=== PATIENT | female | born 2000 | race Caucasian/White ===

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

== ENCOUNTER 2022-12-08 22:22 | Inpatient (IN) ==
[2022-12-08 22:54] LABS: Appearance Urine Turbid (Clear); Bacteria Urine Automated 4+ (Negative); Bilirubin Urine Negative (Negative); Blood Urine 2+ (Negative); Color Urine Yellow; Epithelial Cell Urine Auto >30 /lpf (0-5); Glucose Urine UA Negative (Negative); Ketones Urine Negative (Negative); Leukocyte Esterase Urine 2+ (Negative); Nitrite Urine Positive (Negative); Specific Gravity Urine 1.015 (1.000-1.030); Urobilinogen Urine Negative (Negative); WBC Urine Automated >30 /hpf (0-5); pH Urine 7.5 (4.5-7.5)
[2022-12-08 22:58] LABS: Pregnancy Test, Urine Positive (Negative)
[2022-12-08 23:00] LABS: Protein Urine 1+ (Negative)
[2022-12-08 23:03] LABS: Basophils # (auto) 0.06 K/uL (0-0.2); Basophils % (auto) 0.6 %; Eosinophils # (auto) 0.38 K/uL (0-0.50); Eosinophils % (auto) 3.7 %; Hematocrit (blood only) 34.6 % (37.0-47.0); Immature Granulocytes # (auto) 0.03 K/uL (0.01-0.20); Immature Granulocytes % (auto) 0.3 %; Lymphocytes % (auto) 19.5 %; Mean Corpuscular Hemoglobin 27.1 pg (25.0-34.0); Mean Corpuscular Hgb Conc 31.8 g/dL (32.0-36.0); Mean Corpuscular Volume 85.2 fL (80.0-100.0); Mean Platelet Volume 10.7 fL (9.4-12.4); Monocytes # (auto) 0.87 K/uL (0.11-0.59); Monocytes % (auto) 8.5 %; Neutrophils # (auto) 6.92 K/uL (1.40-6.50); Neutrophils % (auto) 67.4 %; Platelet Count 315 K/uL (130-400); RDW Coefficient of Variation 15.2 % (11.5-14.5); RDW Standard Deviation 47.4 fL (36.4-46.3); Red Blood Count 4.06 M/uL (4.20-5.40); White Blood Count 10.26 K/ul (4.8-10.8)
[2022-12-08 23:22] LABS: Alanine Aminotransferase 6 U/L (7-52); Albumin Globulin Ratio 1.3 (0.9-2); Albumin Level 4.3 gm/dl (3.4-5.0); Alkaline Phosphatase 42 U/L (34-104); Anion Gap 7 (3-11); Aspartate Aminotransferase 13 U/L (13-39); BUN Creatinine Ratio 25.9 (10-20); Bilirubin,Total 0.2 mg/dl (0.2-1.0); Blood Urea Nitrogen 15 mg/dl (6-23); Calcium 9.4 mg/dl (8.6-10.3); Carbon Dioxide 25 mmol/L (21-32); Chloride 103 mmol/L (98-107); Creatinine Clr Calc Pharmacy 130.9 ml/min; Est GFR (African American) > 150.0 ml/min; Est GFR (Non-African American) 132.7 ml/min; Globulin 3.2 gm/dl (2.5-4.0); Glucose 84 mg/dl (70-99(Fasting)); Potassium 3.7 mmol/L (3.5-5.1); Sodium 135 mmol/L (136-145); Total Protein 7.5 gm/dl (6.0-8.3)
[2022-12-09] MEDS ORDERED: cefTRIAXone SODIUM 1,000 MG in DEXTROSE 5% AD-VAN 50 ML IV STA (00:10)
[2022-12-09] MEDS ORDERED: ACETAMINOPHEN 1,000 MG/100 ML VIAL IV STA (01:27)
--- NOTE | 2022-12-09 01:53 | Emergency Department Note ---
History of Present Illness General Chief complaint: Flank Pain Stated complaint: PAIN R ABDOMIN TO BACK Time Seen by Provider: 12/08/22 23:53 History of Present Illness Maximum Pain Intensity: 8 This 22-year-old who is 10 weeks presents to the ER complaining of right flank pain and lower abdominal pain. Patient states she has some dysuria. Patient denies fevers, vomiting, vaginal bleeding or discharge. She has her first appointment this week in [place]. This is her first . No other concerns per patient. Home Medications Medication Instructions Recorded Confirmed Type No Known Home Medications 12/08/22 12/08/22 History Allergies Allergy/AdvReac Type Severity Reaction Status Date / Time No Known Allergies Allergy Unverified 11/07/19 08:18 Past Med/Surg History Social History Smoking Status: Current every day smoker Feels Safe at Home: Yes Review of Systems A total of 10 systems reviewed and were otherwise negative Physical Exam Vital Signs Vital Signs - 24 hr 12/08/22 22:26 12/09/22 01:22 Temperature 36.9 C 36.9 C Temperature Source Temporal Artery Scan Oral Pulse Rate 100 H Pulse Rate [Right Finger] 103 H Respiratory Rate 18 20 Respiratory Effort / Characteristics Non-Labored Spontaneous Respiratory Depth Normal Shallow Blood Pressure 125/77 Blood Pressure [Left Arm] 130/85 Blood Pressure Mean 93 Blood Pressure Mean [Left Arm] 100 Pulse Oximetry 99 97 Oxygen Delivery Method Room Air Room Air Sepsis Recent Fever Within 48 Hours No Sepsis New/Unexplained Change in Mental Status No Sepsis Action Taken by Nursing No Action Required VITALS: Vitals are noted on the nurse's note and reviewed by myself. Vital signs stable. GENERAL: Pleasant female, in no acute distress, nondiaphoretic, well-developed well-nourished. SKIN: The skin was without rashes, erythema, edema, or bruising. There is no tenting of the skin. Capillary reflex less than 2 seconds. HEAD: Normocephalic atraumatic. EARS: External auditory canals clear, tympanic membranes pearly lewis without erythema or effusion bilaterally. EYES: Pupils equal round and reactive to light and accommodation. Conjunctivae without injection, sclerae without icterus. Extraocular movements intact. NOSE: Patent, turbinates without inflammation or discharge. MOUTH: Mucous membranes moist. Pharynx without erythema or exudate. Uvula midline. Airway patent. Tongue does not deviate. NECK: Supple without nuchal rigidity. No lymphadenopathy. No thyromegaly. Cervical spine is nontender. No JVD. HEART: Regular rate and rhythm LUNGS: Clear to auscultation bilaterally without wheezes, rales or rhonchi. No retractions or accessory muscle use. ABDOMEN: Positive bowel sounds x 4. Normal tympanic percussion. Soft, nontender, without masses or organomegaly. Rainey sign negative. No guarding or rebound tenderness. Right CVA tenderness MUSCULOSKELETAL: No muscle atrophy, erythema, or edema noted. NEURO: Patient was alert and oriented to person place and time. Normal sensation to light and sharp touch. No focal neurological deficits. Course Administered Medications Potassium Chloride/Sodium Chloride (Normal Saline W/20 Meq Kcl) 20 meq in 1,000 mls @ 100 mls/hr IV .Q10H ONE; Protocol Stop: 12/09/22 12:12 Last Admin: 12/09/22 02:44 Dose: 100 mls/hr Documented By: MIKE Discontinued Medications Ceftriaxone Sodium 1,000 mg/ (Dextrose) 50 mls @ 100 mls/hr IV NOW STA Stop: 12/09/22 00:39 Last Infusion: 12/09/22 02:04 Dose: 0 mls/hr Documented By: Admin: 12/09/22 01:19 Dose: 100 mls/hr Documented By: TOMASA Acetaminophen (Ofirmev) 1,000 mg in 100 mls @ 400 mls/hr IV NOW STA Stop: 12/09/22 01:41 Last Infusion: 12/09/22 02:04 Dose: 0 mls/hr Documented By: Admin: 12/09/22 01:32 Dose: 400 mls/hr Documented By: TOMASA Medical Decision Making Medical Records Attestation: I reviewed the patient's medical records. Home Medications Current Medication List: was personally reviewed by me Laboratory Data Attestation: I reviewed the patient's lab results. 12/08/22 22:35 12/08/22 22:35 Lab Results 12/08/22 12/08/22 12/08/22 Range/Units 22:35 22:35 22:35 WBC 10.26 (4.8-10.8) K/ul RBC 4.06 L (4.20-5.40) M/uL Hgb 11.0 L (12.0-16.0) g/dl Hct 34.6 L (37.0-47.0) % MCV 85.2 (80.0-100.0) fL MCH 27.1 (25.0-34.0) pg MCHC 31.8 L (32.0-36.0) g/dL RDW Std Deviation 47.4 H (36.4-46.3) fL RDW Coeff of Luis 15.2 H (11.5-14.5) % Plt Count 315 (130-400) K/uL MPV 10.7 (9.4-12.4) fL Immature Gran % (Auto) 0.3 % Neut % (Auto) 67.4 % Lymph % (Auto) 19.5 % Mason % (Auto) 8.5 % Eos % (Auto) 3.7 % Baso % (Auto) 0.6 % Neut # (Auto) 6.92 H (1.40-6.50) K/uL Lymph # (Auto) 2.00 (1.2-3.4) K/uL Mason # (Auto) 0.87 H (0.11-0.59) K/uL Eos # (Auto) 0.38 (0-0.50) K/uL Baso # (Auto) 0.06 (0-0.2) K/uL Immature Gran # (Auto) 0.03 (0.01-0.20) K/uL Sodium 135 L (136-145) mmol/L Potassium 3.7 (3.5-5.1) mmol/L Chloride 103 (98-107) mmol/L Carbon Dioxide 25 (21-32) mmol/L Anion Gap 7 (3-11) BUN 15 (6-23) mg/dl Creatinine 0.58 L (0.6-1.2) mg/dl Est Cr Clr Drug Dosing 130.9 ml/min Est GFR ( Amer) > 150.0 ml/min Est GFR (Non-Af Amer) 132.7 ml/min BUN/Creatinine Ratio 25.9 H (10-20) Glucose 84 (70-99(Fasting)) mg/dl Calcium 9.4 (8.6-10.3) mg/dl Total Bilirubin 0.2 (0.2-1.0) mg/dl AST 13 (13-39) U/L ALT 6 L (7-52) U/L Alkaline Phosphatase 42 (34-104) U/L Total Protein 7.5 (6.0-8.3) gm/dl Albumin 4.3 (3.4-5.0) gm/dl Globulin 3.2 (2.5-4.0) gm/dl Albumin/Globulin Ratio 1.3 (0.9-2) HCG, Quant mIU/ml Urine Color Yellow Urine Appearance Turbid A (Clear) Urine pH 7.5 (4.5-7.5) Ur Specific [place] 1.015 (1.000-1.030) Urine Protein 1+ H (Negative) Urine Glucose (UA) Negative (Negative) Urine Ketones Negative (Negative) Urine Blood 2+ H (Negative) Urine Nitrite Positive A (Negative) Urine Bilirubin Negative (Negative) Urine Urobilinogen Negative (Negative) Ur Leukocyte Esterase 2+ H (Negative) Urine WBC (Auto) >30 H (0-5) /hpf Urine RBC (Auto) 5-10 H (0-4) /hpf U Hyaline Cast (Auto) 1-5 (0-5) /lpf U Epithel Cells (Auto) >30 H (0-5) /lpf Urine Bacteria (Auto) 4+ H (Negative) Urine Yeast Not Reportable Urine Test (Negative) 12/08/22 12/08/22 Range/Units 22:35 22:35 WBC (4.8-10.8) K/ul RBC (4.20-5.40) M/uL Hgb (12.0-16.0) g/dl Hct (37.0-47.0) % MCV (80.0-100.0) fL MCH (25.0-34.0) pg MCHC (32.0-36.0) g/dL RDW Std Deviation (36.4-46.3) fL RDW Coeff of Luis (11.5-14.5) % Plt Count (130-400) K/uL MPV (9.4-12.4) fL Immature Gran % (Auto) % Neut % (Auto) % Lymph % (Auto) % Mason % (Auto) % Eos % (Auto) % Baso % (Auto) % Neut # (Auto) (1.40-6.50) K/uL Lymph # (Auto) (1.2-3.4) K/uL Mason # (Auto) (0.11-0.59) K/uL Eos # (Auto) (0-0.50) K/uL Baso # (Auto) (0-0.2) K/uL Immature Gran # (Auto) (0.01-0.20) K/uL Sodium (136-145) mmol/L Potassium (3.5-5.1) mmol/L Chloride (98-107) mmol/L Carbon Dioxide (21-32) mmol/L Anion Gap (3-11) BUN (6-23) mg/dl Creatinine (0.6-1.2) mg/dl Est Cr Clr Drug Dosing ml/min Est GFR ( Amer) ml/min Est GFR (Non-Af Amer) ml/min BUN/Creatinine Ratio (10-20) Glucose (70-99(Fasting)) mg/dl Calcium (8.6-10.3) mg/dl Total Bilirubin (0.2-1.0) mg/dl AST (13-39) U/L ALT (7-52) U/L Alkaline Phosphatase (34-104) U/L Total Protein (6.0-8.3) gm/dl Albumin (3.4-5.0) gm/dl Globulin (2.5-4.0) gm/dl Albumin/Globulin Ratio (0.9-2) HCG, Quant 055507 mIU/ml Urine Color Urine Appearance (Clear) Urine pH (4.5-7.5) Ur Specific Mize (1.000-1.030) Urine Protein (Negative) Urine Glucose (UA) (Negative) Urine Ketones (Negative) Urine Blood (Negative) Urine Nitrite (Negative) Urine Bilirubin (Negative) Urine Urobilinogen (Negative) Ur Leukocyte Esterase (Negative) Urine WBC (Auto) (0-5) /hpf Urine RBC (Auto) (0-4) /hpf U Hyaline Cast (Auto) (0-5) /lpf U Epithel Cells (Auto) (0-5) /lpf Urine Bacteria (Auto) (Negative) Urine Yeast Urine Test Positive (Negative) Imaging Data Attestation: I personally reviewed and interpreted this imaging study as follo ws: Radiologist's Impression: Appendix Ultrasound 12/09/22 00:10 Exam(s): US APPENDIX EXAM: US Abdomen Limited, Appendix CLINICAL HISTORY: Reason for exam: rlq pain. TECHNIQUE: Real-time ultrasound of the right lower quadrant with image documentation. COMPARISON: No relevant prior studies available. FINDINGS: Appendix: Appendix not identified. Free fluid: No free fluid. IMPRESSION: Appendix not identified. Electronically signed by: Keron Lu M.D. 12/09/22 02:16 AM Ultrasound 12/09/22 00:10 Exam(s): US OB 1st TRIMESTER EXAM: US First Trimester , Transabdominal CLINICAL HISTORY: Reason for exam: pain, 10 weeks. TECHNIQUE: Real-time transabdominal obstetrical ultrasound of the maternal pelvis and a first trimester with image documentation. COMPARISON: No relevant prior studies available. FINDINGS: Gestation: Intrauterine gestation with crown-rump length corresponding to gestational age of 12 weeks 5 days. heart tones are estimated to be 169 bpm. BPD: Biparietal diameter, head circumference, abdominal circumference, and femur length are concordant with estimated gestational age of 13 weeks 2 days. Placenta/amniotic fluid: There is a posterior placenta. Uterus/cervix: Unremarkable. No myometrial mass. Ovaries: Right ovary measures 3.1 x 2.6 x 1.3 cm. Left ovary is not identified. Free fluid: No free fluid. IMPRESSION: 1. 13 week 2 day viable intrauterine . Electronically signed by: Keron Lu M.D. 12/09/22 02:22 AM Renal Ultrasound 12/09/22 00:10 Exam(s): US RENAL EXAM: US Retroperitoneal Limited, Renal CLINICAL HISTORY: Reason for exam: right flank pain, UTI. TECHNIQUE: Real-time limited ultrasound of the retroperitoneum with image documentation. COMPARISON: No relevant prior studies available. FINDINGS: Right kidney: Right kidney measures 10.4 cm. Mild right pelviectasis without shai hydronephrosis. No stones. Left kidney: Left kidney measures 10.6 cm. No stones. No hydronephrosis. Bladder: Bladder is unremarkable. IMPRESSION: Mild right pelviectasis without shai hydronephrosis. Electronically signed by: Keron Lu M.D. 12/09/22 02:19 AM [facility] Narrative Prior records/ancillary studies reviewed. Triage Nursing notes reviewed. Additional history obtained from family. The patient's history was concerning for abdominal pain. Differential diagnosis: Etiologies such as problem, appendicitis, diverticulitis, PUD, biliary pathology, UTI, pancreatitis, obstruction, mesenteric ischemia, aortic pathology, infections, inflammatory bowel disease, renal colic, as well as others were entertained. Physical examination findings: As above. ER treatment provided: An order was placed for continuous cardiac monitoring. The monitor shows a rate of 60-1 20 with a sinus rhythm per my Independent interpretation. IV fluids Tylenol Rocephin were ordered On reassessment the patient felt better. Diagnostics interpreted by me: The labs Independently Interpreted by myself revealed no worrisome leukocytosis, urine concerning for infection sent for culture. Positive Imaging studies: Ultrasounds were concerning for IUP at 13 weeks with bladder infection concerning for possible pyelonephritis per my independent interpretation and per radiology report as above Appendix is not identified on ultrasound. Consultation: A consultation was placed with the pharmacist and states Rocephin is safe with . The case was discussed and diagnostics were reviewed. The patient was evaluated in the ER for further treatment. Medicine was consulted and the case was discussed and was admitted to the medical service. Exam and history seem consistent with pyelonephritis in a first trimester . No prior urine culture for review. Patient was started on antibiotics and this was reviewed with the pharmacist. Labs and diagnostics are independent turbid by myself. Ultrasound shows an active IUP. Patient had right CVA tenderness. She is quite nauseous. Patient had no tenderness in the right lower quadrant. Medicine is consulted and will evaluate the patient for possible admission. By the evaluation outlined above emergent etiologies such as appendicitis, diverticulitis, PUD, biliary pathology, pancreatitis, obstruction, mesenteric ischemia, aortic pathology, inflammatory bowel disease, renal colic, as well as others were deemed relatively unlikely. The pt informed about the findings as listed above. All questions were answered and pleased with the treatment. The chart was completed utilizing [employer] voice recognition software. Grammatical errors, random word insertions, pronoun errors, and incomplete sentences are an occassional consequence of this system due to software limitations, ambient noise, and hardware issues. Any formal questions or concerns about the content, text, or information contained within the body of this dictation should be directly addressed to the physician payroll assistant for clarification. Impression & Plan Pyelonephritis, First trimester Discharge Plan Visit Data Chief Complaint: Flank Pain Stated Complaint: PAIN R ABDOMIN TO BACK ED Provider: Vibha Barros ED Midlevel Provider: Rica Bland Discharge Problem: Pyelonephritis, First trimester Patient Disposition: Admitted As Inpatient Condition: Good Forms Stand Alone Forms: Shake Prescriptions Prescriptions: No Action No Known Home Medications Referrals Referrals: Jossie Guzman CRNP [Primary Care Provider] -
[2022-12-09] MEDS ORDERED: NSS + 20MEQ KCL 20 MEQ/1,000 ML BAG IV ONE (02:13)
--- NOTE | 2022-12-09 02:17 | Ultrasound Report ---
Exam(s): US APPENDIX EXAM: US Abdomen Limited, Appendix CLINICAL HISTORY: Reason for exam: rlq pain. TECHNIQUE: Real-time ultrasound of the right lower quadrant with image documentation. COMPARISON: No relevant prior studies available. FINDINGS: Appendix: Appendix not identified. Free fluid: No free fluid. IMPRESSION: Appendix not identified. Electronically signed by: Keron Lu M.D. 12/09/22 02:16 AM
--- NOTE | 2022-12-09 02:19 | Ultrasound Report ---
Exam(s): US RENAL EXAM: US Retroperitoneal Limited, Renal CLINICAL HISTORY: Reason for exam: right flank pain, UTI. TECHNIQUE: Real-time limited ultrasound of the retroperitoneum with image documentation. COMPARISON: No relevant prior studies available. FINDINGS: Right kidney: Right kidney measures 10.4 cm. Mild right pelviectasis without shai hydronephrosis. No stones. Left kidney: Left kidney measures 10.6 cm. No stones. No hydronephrosis. Bladder: Bladder is unremarkable. IMPRESSION: Mild right pelviectasis without shai hydronephrosis. Electronically signed by: Keron Lu M.D. 12/09/22 02:19 AM
--- NOTE | 2022-12-09 02:23 | Ultrasound Report ---
Exam(s): US OB 1st TRIMESTER EXAM: US First Trimester , Transabdominal CLINICAL HISTORY: Reason for exam: pain, 10 weeks. TECHNIQUE: Real-time transabdominal obstetrical ultrasound of the maternal pelvis and a first trimester with image documentation. COMPARISON: No relevant prior studies available. FINDINGS: Gestation: Intrauterine gestation with crown-rump length corresponding to gestational age of 12 weeks 5 days. heart tones are estimated to be 169 bpm. BPD: Biparietal diameter, head circumference, abdominal circumference, and femur length are concordant with estimated gestational age of 13 weeks 2 days. Placenta/amniotic fluid: There is a posterior placenta. Uterus/cervix: Unremarkable. No myometrial mass. Ovaries: Right ovary measures 3.1 x 2.6 x 1.3 cm. Left ovary is not identified. Free fluid: No free fluid. IMPRESSION: 1. 13 week 2 day viable intrauterine . Electronically signed by: Keron Lu M.D. 12/09/22 02:22 AM
[2022-12-09 03:03] LABS: Magnesium 1.8 mg/dl (1.7-2.4)
[2022-12-09] MEDS ORDERED: MAGNESIUM SULFATE / D5W 1 GM/100 ML BAG IV ONE (03:22)
--- NOTE | 2022-12-09 03:23 | History & Physical Report ---
Date of Service December 09, 2022 Assessment & Plan (1) Complicated UTI (urinary tract infection): Plan: Right pyelonephritis in a primigravida patient No sepsis for now mood disorder, stable off maintenance medications Chronic anemia, hemoglobin at baseline Ongoing tobacco abuse GMF Urine CS, Ceftriaxone OB consult Re: evaluation Patient counseled to stop smoking in light of . DVT prophylaxis. SCDs Full code Text document was generated using [employer] voice recognition software. It may contain grammatical or spelling errors. Kindly contact undersigned for clarification of any documentation item in question. History of Present Illness Chief Complaint: Right flank pain Primary Care Provider: PCP, No History obtained from patient, family, and records. Medical history significant for mood disorder, GERD, chronic anemia (baseline hemoglobin of 11), ongoing tobacco abuse. Patient is a primigravida currently 20 weeks consulted ER for 3 days history of right flank pain with dysuria symptoms. Patient found out she was 3 weeks last week of October and was scheduled to see [facility] for her first checkup today. No fever, no chills, no hematuria. Some nausea, no emesis. Patient denies chest pain, SOB. IV Ceftriaxone administered at the ER. Medical History as above Surgical History : Orbital fracture surgery Family History : Hypertension Personal/Social history : Few cigarettes a day, no EtOH intake, currently unemployed Allergies Allergy/AdvReac Type Severity Reaction Status Date / Time No Known Allergies Allergy Unverified 11/07/19 08:18 Home Medications Medication Instructions Recorded Confirmed Type No Known Home Medications 12/08/22 12/08/22 History Past Med/Surg History Surgical History (Updated 12/09/22 @ 06:55 by Gemini Toscano MD) Hx of tonsillectomy S/P eye surgery Social History Smoking Status: Former smoker Hx Alcohol Use: No Hx Substance Use: No Preferred Language: Mongolian Assembler Type Bar And Segment Required: No Beliefs That Will Affect Care: None Current Living Situation: Parent Feels Safe at Home: Yes Safety Concerns: Feels Safe At This Time Assistive Devices: None Review of Systems Review of Systems: As per HPI, all other systems reviewed and negative Physical Exam Physical Exam: GENERAL: Comfortable, pleasant, no respiratory distress SKIN: Pallor, warm HEENT: Pale palpebral conjunctivae, no ptosis, dry buccal mucosa NECK : Supple, no tenderness CHEST : CTA, no tenderness HEART : RRR, no obvious murmurs ABDOMEN: Some distention, minimal right flank tenderness EXTREMITIES : No LE swelling/tenderness, no other conspicuous deformities noted NEUROLOGIC : Coherent, no facial asymmetry, no other gross focality Results & Data Results & Data Vital Signs (Past 12 Hours) Vital Signs Temp Pulse Pulse Resp BP BP Pulse Ox 12/09/22 01: 36.9 C 103 H 20 130/85 97 12/08/22 22:26 36.9 C 100 H 18 125/77 99 O2 Del Method 12/09/22 01:22 Room Air 12/08/22 22:26 Room Air Laboratory Results Laboratory Results WBC 10.26 K/ul (4.8-10.8) 12/08/22 22:35 RBC 4.06 M/uL (4.20-5.40) L 12/08/22 22:35 Hgb 11.0 g/dl (12.0-16.0) L 12/08/22 22:35 Hct 34.6 % (37.0-47.0) L 12/08/22 22:35 MCV 85.2 fL (80.0-100.0) 12/08/22 22:35 MCH 27.1 pg (25.0-34.0) 12/08/22 22:35 MCHC 31.8 g/dL (32.0-36.0) L 12/08/22 22:35 RDW Std Deviation 47.4 fL (36.4-46.3) H 12/08/22 22:35 RDW Coeff of Luis 15.2 % (11.5-14.5) H 12/08/22 22:35 Plt Count 315 K/uL (130-400) 12/08/22 22:35 MPV 10.7 fL (9.4-12.4) 12/08/22 22:35 Immature Gran % (Auto) 0.3 % 12/08/22 22:35 Neut % (Auto) 67.4 % 12/08/22 22:35 Lymph % (Auto) 19.5 % 12/08/22 22:35 Andrews % (Auto) 8.5 % 12/08/22 22:35 Eos % (Auto) 3.7 % 12/08/22 22:35 Baso % (Auto) 0.6 % 12/08/22 22:35 Neut # (Auto) 6.92 K/uL (1.40-6.50) H 12/08/22 22:35 Lymph # (Auto) 2.00 K/uL (1.2-3.4) 12/08/22 22:35 Andrews # (Auto) 0.87 K/uL (0.11-0.59) H 12/08/22 22:35 Eos # (Auto) 0.38 K/uL (0-0.50) 12/08/22 22:35 Baso # (Auto) 0.06 K/uL (0-0.2) 12/08/22 22:35 Immature Gran # (Auto) 0.03 K/uL (0.01-0.20) 12/08/22 22:35 Sodium 135 mmol/L (136-145) L 12/08/22 22:35 Potassium 3.7 mmol/L (3.5-5.1) 12/08/22 22:35 Chloride 103 mmol/L (98-107) 12/08/22 22:35 Carbon Dioxide 25 mmol/L (21-32) 12/08/22 22:35 Anion Gap 7 (3-11) 12/08/22 22:35 BUN 15 mg/dl (6-23) 12/08/22 22:35 Creatinine 0.58 mg/dl (0.6-1.2) L 12/08/22 22:35 Est Cr Clr Drug Dosing 130.9 ml/min 12/08/22 22:35 Est GFR ( Amer) > 150.0 ml/min 12/08/22 22:35 Est GFR (Non-Af Amer) 132.7 ml/min 12/08/22 22:35 BUN/Creatinine Ratio 25.9 (10-20) H 12/08/22 22:35 Glucose 84 mg/dl (70-99(Fasting)) 12/08/22 22:35 Calcium 9.4 mg/dl (8.6-10.3) 12/08/22 22:35 Magnesium 1.8 mg/dl (1.7-2.4) 12/08/22 22:35 Total Bilirubin 0.2 mg/dl (0.2-1.0) 12/08/22 22:35 AST 13 U/L (13-39) 12/08/22 22:35 ALT 6 U/L (7-52) L 12/08/22 22:35 Alkaline Phosphatase 42 U/L (34-104) 12/08/22 22:35 Total Protein 7.5 gm/dl (6.0-8.3) 12/08/22 22:35 Albumin 4.3 gm/dl (3.4-5.0) 12/08/22 22: Globulin 3.2 gm/dl (2.5-4.0) 12/08/22 22:35 Albumin/Globulin Ratio 1.3 (0.9-2) 12/08/22 22:35 HCG, Quant [id number] mIU/ml 12/08/22 22:35 Urine Color Yellow 12/08/22 22:35 Urine Appearance Turbid (Clear) A 12/08/22 22:35 Urine pH 7.5 (4.5-7.5) 12/08/22 22:35 Ur Specific [place] 1.015 (1.000-1.030) 12/08/22 22:35 Urine Protein 1+ (Negative) H 12/08/22 22:35 Urine Glucose (UA) Negative (Negative) 12/08/22 22: Urine Ketones Negative (Negative) 12/08/22 22: Urine Blood 2+ (Negative) H 12/08/22 22:35 Urine Nitrite Positive (Negative) A 12/08/22 22:35 Urine Bilirubin Negative (Negative) 12/08/22 22:35 Urine Urobilinogen Negative (Negative) 12/08/22 22:35 Ur Leukocyte Esterase 2+ (Negative) H 12/08/22 22:35 Urine WBC (Auto) >30 /hpf (0-5) H 12/08/22 22:35 Urine RBC (Auto) 5-10 /hpf (0-4) H 12/08/22 22:35 U Hyaline Cast (Auto) 1-5 /lpf (0-5) 12/08/22 22:35 U Epithel Cells (Auto) >30 /lpf (0-5) H 12/08/22 22:35 Urine Bacteria (Auto) 4+ (Negative) H 12/08/22 22:35 Urine Yeast Not Reportable 12/08/22 22:35 Urine Test Positive (Negative) 12/08/22 22:35 Impressions Appendix Ultrasound 12/09/22 00:10 Exam(s): US APPENDIX EXAM: US Abdomen Limited, Appendix CLINICAL HISTORY: Reason for exam: rlq pain. TECHNIQUE: Real-time ultrasound of the right lower quadrant with image documentation. COMPARISON: No relevant prior studies available. FINDINGS: Appendix: Appendix not identified. Free fluid: No free fluid. IMPRESSION: Appendix not identified. Electronically signed by: Keron Lu M.D. 12/09/22 02:16 AM Ultrasound 12/09/22 00:10 Exam(s): US OB 1st TRIMESTER EXAM: US First Trimester , Transabdominal CLINICAL HISTORY: Reason for exam: pain, 10 weeks. TECHNIQUE: Real-time transabdominal obstetrical ultrasound of the maternal pelvis and a first trimester with image documentation. COMPARISON: No relevant prior studies available. FINDINGS: Gestation: Intrauterine gestation with crown-rump length corresponding to gestational age of 12 weeks 5 days. heart tones are estimated to be 169 bpm. BPD: Biparietal diameter, head circumference, abdominal circumference, and femur length are concordant with estimated gestational age of 13 weeks 2 days. Placenta/amniotic fluid: There is a posterior placenta. Uterus/cervix: Unremarkable. No myometrial mass. Ovaries: Right ovary measures 3.1 x 2.6 x 1.3 cm. Left ovary is not identified. Free fluid: No free fluid. IMPRESSION: 1. 13 week 2 day viable intrauterine . Electronically signed by: Keron Lu M.D. 12/09/22 02:22 AM Renal Ultrasound 12/09/22 00:10 Exam(s): US RENAL EXAM: US Retroperitoneal Limited, Renal CLINICAL HISTORY: Reason for exam: right flank pain, UTI. TECHNIQUE: Real-time limited ultrasound of the retroperitoneum with image documentation. COMPARISON: No relevant prior studies available. FINDINGS: Right kidney: Right kidney measures 10.4 cm. Mild right pelviectasis without shai hydronephrosis. No stones. Left kidney: Left kidney measures 10.6 cm. No stones. No hydronephrosis. Bladder: Bladder is unremarkable. IMPRESSION: Mild right pelviectasis without shai hydronephrosis. Electronically signed by: Keron Lu M.D. 12/09/22 02:19 AM
[2022-12-09] MEDS ORDERED: ONDANSETRON INJ 2 MG/ML 2 ML VIAL IV PRN (03:26)
[2022-12-09] MEDS ORDERED: ACETAMINOPHEN 325 MG TAB PO PRN (03:26)
--- NOTE | 2022-12-09 06:50 | OB/GYN Consultation ---
Date of Consultation December 09, 2022 Assessment & Plan (1) First trimester : (2) Pyelonephritis: Plan -pt is no longer smoking, has not smoked since finding out she was -encouraged initiation of pnv -discussed avoidance of nsaids while , can use tylenol for pain, fevers, headaches, etc -rocephin ok for use in for pyelo -encouraged to reach out to her planned primary OB office to reschedule her new OB visit -if further questions/concerns arise, please feel free to contact conduit cleaner [facility] physician History of Present Illness Reason for Consultation: smoking cessation, pnc Requesting Physician: Dr. Arciniega Attending Physician: Scotty Whitley MD History of Present Illness 22 yo G1 thought to be 10wks by LMP, appears to be 12-13wks by US is admitted to medicine service for pyelonephritis. OB consulted as pt was to have her first OB appt at [facility] but was admitted here. Pt denies any vaginal bleeding since finding out she was . Has not started PNV, did stop smoking with +HPT. Started on ceftriaxone for pyelonephritis, currently resting comfortably G1 denies hx STIs Allergies Allergy/AdvReac Type Severity Reaction Status Date / Time No Known Allergies Allergy Unverified 11/07/19 08:18 Home Medications Medication Instructions Recorded Confirmed Type No Known Home Medications 12/08/22 12/08/22 History Patient History Surgical History (Updated 12/09/22 @ 06:55 by Gemini Toscano MD) Hx of tonsillectomy S/P eye surgery Social History Smoking Status: Former smoker Hx Alcohol Use: No Hx Substance Use: No Preferred Language: [place] [employer] Supervisor Required: No Beliefs That Will Affect Care: None Current Living Situation: Parent Feels Safe at Home: Yes Safety Concerns: Feels Safe At This Time Assistive Devices: None Physical Exam Constitutional: WD/WN, vitals as above Respiratory: normal respiratory effort; no respiratory distress and no labored breathing Gastrointestinal (Abdomen): Inspection/Auscultation: abdomen normal to inspection; abdomen not distended Percussion/Palpation: abdomen soft; abdomen nontender and no guarding Results & Data Vital Signs (Past 12 Hours) Vital Signs Temp Pulse Pulse Resp BP BP Pulse Ox 08/02/23 06:25 98.2 F 89 16 100/57 L 98 12/09/22 04:10 98.5 F 78 16 103/63 99 12/09/22 03:58 105/53 L 12/09/22 01:22 98.4 F 103 H 20 130/85 97 12/08/22 22:26 98.4 F 100 H 18 125/77 99 O2 Del Method 12/09/22 06:25 Room Air 12/09/22 04:10 Room Air 12/09/22 03:58 12/09/22 01:22 Room Air 12/08/22 22:26 Room Air Diagnostic Findings FINDINGS: Gestation: Intrauterine gestation with crown-rump length corresponding to gestational age of 12 weeks 5 days. heart tones are estimated to be 169 bpm. BPD: Biparietal diameter, head circumference, abdominal circumference, and femur length are concordant with estimated gestational age of 13 weeks 2 days. Placenta/amniotic fluid: There is a posterior placenta. Uterus/cervix: Unremarkable. No myometrial mass. Ovaries: Right ovary measures 3.1 x 2.6 x 1.3 cm. Left ovary is not identified. Free fluid: No free fluid. IMPRESSION: 1. 13 week 2 day viable intrauterine . PG Care Time/CCT Total # of Minutes Spent Total Time Spent with Patient: Total time spent is greater than 50% in coordination of care (as documented) at patient's floor/unit and/or counseling patient: Coding Level of Care Code 99754 OFFICE CONSULT LVL 08/06M Diagnoses First trimester Z34.91 Pyelonephritis N12
[2022-12-09 08:51] LABS: Basophils # (auto) 0.04 K/uL (0-0.2); Basophils % (auto) 0.5 %; Eosinophils # (auto) 0.31 K/uL (0-0.50); Eosinophils % (auto) 3.6 %; Hematocrit (blood only) 27.1 % (37.0-47.0); Hemoglobin 8.7 g/dl (12.0-16.0); Immature Granulocytes # (auto) 0.02 K/uL (0.01-0.20); Immature Granulocytes % (auto) 0.2 %; Lymphocytes # (auto) 1.82 K/uL (1.2-3.4); Lymphocytes % (auto) 20.9 %; Mean Corpuscular Hemoglobin 27.2 pg (25.0-34.0); Mean Corpuscular Hgb Conc 32.1 g/dL (32.0-36.0); Mean Corpuscular Volume 84.7 fL (80.0-100.0); Mean Platelet Volume 10.9 fL (9.4-12.4); Monocytes # (auto) 0.64 K/uL (0.11-0.59); Monocytes % (auto) 7.4 %; Neutrophils # (auto) 5.87 K/uL (1.40-6.50); Neutrophils % (auto) 67.4 %; Platelet Count 252 K/uL (130-400); RDW Coefficient of Variation 15.2 % (11.5-14.5)
--- NOTE | 2022-12-09 08:58 | Hospitalist Progress Note ---
Date of Service December 09, 2022 Assessment & Plan (1) Complicated UTI (urinary tract infection): Plan: Right pyelonephritis in a primigravida patient, No sepsis for now (~12 weeks) GMF Urine CS, Ceftriaxone OB consult Re: evaluation Per OB - ok to continue w/ ceftriaxone during Patient counseled to stop smoking in light of mood disorder, stable off maintenance medications Chronic anemia, hemoglobin 11 -> 8.7 w/ likely some dilutional component from IVF and IV abx Continue to monitor CBC vitamin ordered tobacco abuse- counseling provided and pt reports she quit smoking DVT prophylaxis. SCDs Full code Admission and Anticipated Discharge Date Admission Date: December 09, 2022 Subjective Pt seen in follow up of pyelo, in the setting of (~12 weeks) Pt was started on ceftriaxone on admission Seen by OB this AM - ok to cont. w/ ceftriaxone Currently laying in bed in no acute distress, appears tired, however says that she is feeling better and CVA tenderness much improved at this time. Currently also denies any nausea Denies dysuria Denies abdominal pain Denies hematuria No chest pain or shortness of breath Review of Systems Review of Systems: All systems reviewed & are unremarkable except as noted in Subjective Physical Exam Physical Exam: GENERAL: young slim F in NAD HEENT: NC/AT. EOMI. Pale palpebral conjunctivae NECK : Supple, no tenderness CHEST : CTA, no tenderness HEART : RRR, no obvious murmurs ABDOMEN: Some distention, minimal right flank tenderness (improved) EXTREMITIES : No LE swelling/tenderness, moves extremities SKIN: Pallor, warm NEUROLOGIC : alert, oriented, answers appropriately, no facial asymmetry, speech fluent, moves extremities Results & Data Results & Data Vital Signs (Past 12 Hours) Vital Signs Temp Pulse Pulse Resp BP BP Pulse Ox 12/09/22 06:25 36.8 C 89 16 100/57 L 98 12/09/22 04:10 36.9 C 78 16 103/63 99 12/09/22 03:58 105/53 L 12/09/22 01:22 36.9 C 103 H 20 130/85 97 12/08/22 22:26 36.9 C 100 H 18 125/77 99 O2 Del Method 12/09/22 06:25 Room Air 12/09/22 04:10 Room Air 12/09/22 03:58 12/09/22 01:22 Room Air 12/08/22 22:26 Room Air Laboratory Results 12/09/22 12/09/22 12/09/22 Range/Units 07:43 07:43 07:43 WBC 8.70 (4.8-10.8) K/ul RBC 3.20 L (4.20-5.40) M/uL Hgb 8.7 L (12.0-16.0) g/dl Hct 27.1 L (37.0-47.0) % MCV 84.7 (80.0-100.0) fL MCH 27.2 (25.0-34.0) pg MCHC 32.1 (32.0-36.0) g/dL RDW Std Deviation 47.0 H (36.4-46.3) fL RDW Coeff of Luis 15.2 H (11.5-14.5) % Plt Count 252 (130-400) K/uL MPV 10.9 (9.4-12.4) fL Immature Gran % (Auto) 0.2 % Neut % (Auto) 67.4 % Lymph % (Auto) 20.9 % Ferry % (Auto) 7.4 % Eos % (Auto) 3.6 % Baso % (Auto) 0.5 % Neut # (Auto) 5.87 (1.40-6.50) K/uL Lymph # (Auto) 1.82 (1.2-3.4) K/uL Ferry # (Auto) 0.64 H (0.11-0.59) K/uL Eos # (Auto) 0.31 (0-0.50) K/uL Baso # (Auto) 0.04 (0-0.2) K/uL Immature Gran # (Auto) 0.02 (0.01-0.20) K/uL Sodium Pending (136-145) mmol/L Potassium Pending (3.5-5.1) mmol/L Chloride Pending (98-107) mmol/L Carbon Dioxide Pending (21-32) mmol/L Anion Gap Pending (3-11) BUN Pending (6-23) mg/dl Creatinine Pending (0.6-1.2) mg/dl Est Cr Clr Drug Dosing Pending ml/min Est GFR ( Amer) Pending ml/min Est GFR (Non-Af Amer) Pending ml/min BUN/Creatinine Ratio Pending (10-20) Glucose Pending (70-99(Fasting)) mg/dl Calcium Pending (8.6-10.3) mg/dl Magnesium (1.7-2.4) mg/dl Total Bilirubin (0.2-1.0) mg/dl AST (13-39) U/L ALT (7-52) U/L Alkaline Phosphatase (34-104) U/L Total Protein (6.0-8.3) gm/dl Albumin (3.4-5.0) gm/dl Globulin (2.5-4.0) gm/dl Albumin/Globulin Ratio (0.9-2) TSH Pending HCG, Quant mIU/ml Urine Color Urine Appearance (Clear) Urine pH (4.5-7.5) Ur Specific [place] (1.000-1.030) Urine Protein (Negative) Urine Glucose (UA) (Negative) Urine Ketones (Negative) Urine Blood (Negative) Urine Nitrite (Negative) Urine Bilirubin (Negative) Urine Urobilinogen (Negative) Ur Leukocyte Esterase (Negative) Urine WBC (Auto) (0-5) /hpf Urine RBC (Auto) (0-4) /hpf U Hyaline Cast (Auto) (0-5) /lpf U Epithel Cells (Auto) (0-5) /lpf Urine Bacteria (Auto) (Negative) Urine Yeast Urine Test (Negative) 12/08/22 12/08/22 12/08/22 Range/Units 22:35 22:35 22:35 WBC (4.8-10.8) K/ul RBC (4.20-5.40) M/uL Hgb (12.0-16.0) g/dl Hct (37.0-47.0) % MCV (80.0-100.0) fL MCH (25.0-34.0) pg MCHC (32.0-36.0) g/dL RDW Std Deviation (36.4-46.3) fL RDW Coeff of Luis (11.5-14.5) % Plt Count (130-400) K/uL MPV (9.4-12.4) fL Immature Gran % (Auto) % Neut % (Auto) % Lymph % (Auto) % Ferry % (Auto) % Eos % (Auto) % Baso % (Auto) % Neut # (Auto) (1.40-6.50) K/uL Lymph # (Auto) (1.2-3.4) K/uL Ferry # (Auto) (0.11-0.59) K/uL Eos # (Auto) (0-0.50) K/uL Baso # (Auto) (0-0.2) K/uL Immature Gran # (Auto) (0.01-0.20) K/uL Sodium (136-145) mmol/L Potassium (3.5-5.1) mmol/L Chloride (98-107) mmol/L Carbon Dioxide (21-32) mmol/L Anion Gap (3-11) BUN (6-23) mg/dl Creatinine (0.6-1.2) mg/dl Est Cr Clr Drug Dosing ml/min Est GFR ( Amer) ml/min Est GFR (Non-Af Amer) ml/min BUN/Creatinine Ratio (10-20) Glucose (70-99(Fasting)) mg/dl Calcium (8.6-10.3) mg/dl Magnesium (1.7-2.4) mg/dl Total Bilirubin (0.2-1.0) mg/dl AST (13-39) U/L ALT (7-52) U/L Alkaline Phosphatase (34-104) U/L Total Protein (6.0-8.3) gm/dl Albumin (3.4-5.0) gm/dl Globulin (2.5-4.0) gm/dl Albumin/Globulin Ratio (0.9-2) TSH HCG, Quant 388761 mIU/ml Urine Color Yellow Urine Appearance Turbid A (Clear) Urine pH 7.5 (4.5-7.5) Ur Specific [place] 1.015 (1.000-1.030) Urine Protein 1+ H (Negative) Urine Glucose (UA) Negative (Negative) Urine Ketones Negative (Negative) Urine Blood 2+ H (Negative) Urine Nitrite Positive A (Negative) Urine Bilirubin Negative (Negative) Urine Urobilinogen Negative (Negative) Ur Leukocyte Esterase 2+ H (Negative) Urine WBC (Auto) >30 H (0-5) /hpf Urine RBC (Auto) 5-10 H (0-4) /hpf U Hyaline Cast (Auto) 1-5 (0-5) /lpf U Epithel Cells (Auto) >30 H (0-5) /lpf Urine Bacteria (Auto) 4+ H (Negative) Urine Yeast Not Reportable Urine Test Positive (Negative) 12/08/22 12/08/22 Range/Units 22:35 22:35 WBC 10.26 (4.8-10.8) K/ul RBC 4.06 L (4.20-5.40) M/uL Hgb 11.0 L (12.0-16.0) g/dl Hct 34.6 L (37.0-47.0) % MCV 85.2 (80.0-100.0) fL MCH 27.1 (25.0-34.0) pg MCHC 31.8 L (32.0-36.0) g/dL RDW Std Deviation 47.4 H (36.4-46.3) fL RDW Coeff of Luis 15.2 H (11.5-14.5) % Plt Count 315 (130-400) K/uL MPV 10.7 (9.4-12.4) fL Immature Gran % (Auto) 0.3 % Neut % (Auto) 67.4 % Lymph % (Auto) 19.5 % Ferry % (Auto) 8.5 % Eos % (Auto) 3.7 % Baso % (Auto) 0.6 % Neut # (Auto) 6.92 H (1.40-6.50) K/uL Lymph # (Auto) 2.00 (1.2-3.4) K/uL Ferry # (Auto) 0.87 H (0.11-0.59) K/uL Eos # (Auto) 0.38 (0-0.50) K/uL Baso # (Auto) 0.06 (0-0.2) K/uL Immature Gran # (Auto) 0.03 (0.01-0.20) K/uL Sodium 135 L (136-145) mmol/L Potassium 3.7 (3.5-5.1) mmol/L Chloride 103 (98-107) mmol/L Carbon Dioxide 25 (21-32) mmol/L Anion Gap 7 (3-11) BUN 15 (6-23) mg/dl Creatinine 0.58 L (0.6-1.2) mg/dl Est Cr Clr Drug Dosing 130.9 ml/min Est GFR ( Amer) > 150.0 ml/min Est GFR (Non-Af Amer) 132.7 ml/min BUN/Creatinine Ratio 25.9 H (10-20) Glucose 84 (70-99(Fasting)) mg/dl Calcium 9.4 (8.6-10.3) mg/dl Magnesium 1.8 (1.7-2.4) mg/dl Total Bilirubin 0.2 (0.2-1.0) mg/dl AST 13 (13-39) U/L ALT 6 L (7-52) U/L Alkaline Phosphatase 42 (34-104) U/L Total Protein 7.5 (6.0-8.3) gm/dl Albumin 4.3 (3.4-5.0) gm/dl Globulin 3.2 (2.5-4.0) gm/dl Albumin/Globulin Ratio 1.3 (0.9-2) TSH HCG, Quant mIU/ml Urine Color Urine Appearance (Clear) Urine pH (4.5-7.5) Ur Specific [place] (1.000-1.030) Urine Protein (Negative) Urine Glucose (UA) (Negative) Urine Ketones (Negative) Urine Blood (Negative) Urine Nitrite (Negative) Urine Bilirubin (Negative) Urine Urobilinogen (Negative) Ur Leukocyte Esterase (Negative) Urine WBC (Auto) (0-5) /hpf Urine RBC (Auto) (0-4) /hpf U Hyaline Cast (Auto) (0-5) /lpf U Epithel Cells (Auto) (0-5) /lpf Urine Bacteria (Auto) (Negative) Urine Yeast Urine Test (Negative) Medications Administered Current Inpatient Medications Acetaminophen (Acetaminophen 325 Mg Tab) 650 mg PO Q6H PRN PRN Reason: Fever/Pain Stop: 01/08/23 03:25 Potassium Chloride/Sodium Chloride (Normal Saline W/20 Meq Kcl) 20 meq in 1,000 mls @ 100 mls/hr IV .Q10H ONE; Protocol Stop: 12/09/22 12:12 Last Admin: 12/09/22 02:44 Dose: 100 mls/hr Ceftriaxone Sodium 2,000 mg/ (Dextrose) 70 mls @ 100 mls/hr IV Q24H [facility]; Protocol Stop: 12/19/22 21:59 Ondansetron HCl (Ondansetron Inj 2 Mg/Ml 2 Ml Vial) 4 mg IV Q6H PRN PRN Reason: Nausea And Vomiting Stop: 01/08/23 03:25
[2022-12-09 09:12] LABS: Anion Gap 4 (3-11); Blood Urea Nitrogen 10 mg/dl (6-23); Calcium 8.3 mg/dl (8.6-10.3); Carbon Dioxide 23 mmol/L (21-32); Chloride 108 mmol/L (98-107); Creatinine Clr Calc Pharmacy 151.3 ml/min; Est GFR (African American) > 150.0 ml/min; Est GFR (Non-African American) 139.3 ml/min; Glucose 133 mg/dl (70-99(Fasting)); Potassium 3.6 mmol/L (3.5-5.1); Sodium 135 mmol/L (136-145)
[2022-12-09] MEDS: PRENATAL VITAMIN 1 TAB PO SCH (10:06)
[2022-12-09] MEDS ORDERED: cefTRIAXone SODIUM 2,000 MG in DEXTROSE 5% 50 ML IV SCH (22:00)
[2022-12-10 06:45] LABS: Hematocrit (blood only) 29.3 % (37.0-47.0); Hemoglobin 9.2 g/dl (12.0-16.0); Mean Corpuscular Hemoglobin 27.1 pg (25.0-34.0); Mean Corpuscular Hgb Conc 31.4 g/dL (32.0-36.0); Mean Corpuscular Volume 86.2 fL (80.0-100.0); Mean Platelet Volume 10.8 fL (9.4-12.4); Platelet Count 250 K/uL (130-400); RDW Coefficient of Variation 15.5 % (11.5-14.5); White Blood Count 5.67 K/ul (4.8-10.8)
[2022-12-10 07:14] LABS: Anion Gap 6 (3-11); BUN Creatinine Ratio 19.1 (10-20); Blood Urea Nitrogen 9 mg/dl (6-23); Calcium 8.8 mg/dl (8.6-10.3); Carbon Dioxide 24 mmol/L (21-32); Chloride 106 mmol/L (98-107); Est GFR (African American) > 150.0 ml/min; Est GFR (Non-African American) 142.2 ml/min; Glucose 88 mg/dl (70-99(Fasting)); Magnesium 1.7 mg/dl (1.7-2.4); Phosphorus 4.5 mg/dl (2.5-4.9); Potassium 3.8 mmol/L (3.5-5.1); Sodium 136 mmol/L (136-145)
[2022-12-10] MEDS: PRENATAL VITAMIN 1 TAB PO SCH (07:54)
--- NOTE | 2022-12-10 11:06 | Discharge Summary ---
Date of Service December 10, 2022 Admission HPI Per Admitting Provider History obtained from patient, family, and records. Medical history significant for mood disorder, GERD, chronic anemia (baseline hemoglobin of 11), ongoing tobacco abuse. Patient is a primigravida currently 20 weeks consulted ER for 3 days history of right flank pain with dysuria symptoms. Patient found out she was 3 weeks last week of October and was scheduled to see [facility] for her first checkup today. No fever, no chills, no hematuria. Some nausea, no emesis. Patient denies chest pain, SOB. IV Ceftriaxone administered at the ER. Medical History as above Surgical History : Orbital fracture surgery Family History : Hypertension Personal/Social history : Few cigarettes a day, no EtOH intake, currently unemployed Admission Exam Per Admitting Provider GENERAL: Comfortable, pleasant, no respiratory distress SKIN: Pallor, warm HEENT: Pale palpebral conjunctivae, no ptosis, dry buccal mucosa NECK : Supple, no tenderness CHEST : CTA, no tenderness HEART : RRR, no obvious murmurs ABDOMEN: Some distention, minimal right flank tenderness EXTREMITIES : No LE swelling/tenderness, no other conspicuous deformities noted NEUROLOGIC : Coherent, no facial asymmetry, no other gross focality Principal Diagnosis Complicated UTI/ pyelonephritis Discharge Exam GENERAL: young slim F in NAD HEENT: NC/AT. EOMI. Pale palpebral conjunctivae NECK : Supple, no tenderness CHEST : CTA, no tenderness HEART : RRR, no obvious murmurs ABDOMEN: Some distention, no right flank tenderness (resolved) EXTREMITIES : No LE swelling/tenderness, moves extremities SKIN: Pallor, warm NEUROLOGIC : alert, oriented, answers appropriately, no facial asymmetry, speech fluent, moves extremities Discharge Data Allergies Allergy/AdvReac Type Severity Reaction Status Date / Time No Known Allergies Allergy Unverified 11/07/19 08:18 Consultations 12/09/22 02:10 ED Decision to Admit Stat 12/09/22 03:27 Consult Obstetrics Routine Ordered Studies 12/09/22 00:10 US OB <= 14 weeks fetus Stat US Renal Bladder [US renal/blad retro comp] Stat US appendix Stat Hospital Course (1) Complicated UTI (urinary tract infection): Right pyelonephritis in a primigravida patient, No sepsis (~12 weeks) GMF Urine CS, Ceftriaxone OB consult Re: evaluation Per OB - ok to continue w/ ceftriaxone during Patient counseled to stop smoking in light of Ucultx positive for E. coli pansensitive Pt is feeling much better and would like to be discharged Discussed w/ OB - plan to discharge on PO cefuroxime 250 bid for total of 10 days of abx treatment Pt is to follow up w/ pcp and OB. vitamin ordered while inpt and pt advised to take PNV at home as ell. Chronic anemia, hemoglobin 11 -> 9.2 w/ likely some dilutional component from IVF and IV abx Continue to monitor CBC take iron suppl./ PNV Follow as outpt tobacco abuse- counseling provided and pt reports she quit smoking mood disorder, stable off maintenance medications Total Time Total Time Spent Total Time Spent (In Minutes): 40 Discharge Plan Discharge Items Patient Disposition: Home - Self-Care Reason For Visit: COMPLICATED UTI Discharge Diagnosis: Complicated UTI/ pyelonephritis Condition on Discharge: Good Activity: Per Instructions section Non-emergency contact: Primary Care Provider and Shipfitter Apprentice Call non-emergency contact if: you have any medication questions and your symptoms worsen Follow-up/Referrals: PCP,NO [Primary Care Provider] - Diet: Regular Addtl Attending Provider Instructions: Follow-up with your primary care physician and PROGRAM MANUFACTURING LEADER physician. You should see your primary care physician within 1 week. Finish antibiotic treatment with cefuroxime, as prescribed. Make sure to take pre-migue vitamins. Pending Studies at Discharge: No Stand-Alone Forms: [facility] [employer], Smoking Cessation Medications and DC Order Prescriptions: New cefuroxime axetil 250 mg tablet 250 mg PO BID 8 Days Qty: 16 0RF Discharge Orders: Discharge Order (Routine); Ordered 12/10/22 Ordered By: Scotty Whitley Admission Data Admit Date/Time: 12/09/22 03:24 Attending Provider: Scotty Whitley Admit Provider: Niall Arciniega Primary Care Provider: PCP,NO Other Providers: Niall Arciniega ; Sarah Robbins ; Steve Frankel ; Eva Pryor ; Hilary Lu ; Lisa Morton ; David Peters ; Julia Landeros ; Latonia Hunt ; Gemini Toscano ; Cassia Small ; Javan Bailey
== END 2022-12-10 12:52 | disposition home or self-care (01) | DRG 832 ==
LOC: ED 22:22 → 3W 12-09 03:24 → SUPCPDRO 12-09 03:24 → 3W 12-09 04:03
DX: Z3A.12 12 weeks gestation of pregnancy; N39.0 Urinary tract infection, site not specified; O23.01 Infections of kidney in pregnancy, first trimester; B96.20 Unspecified Escherichia coli [E. coli] as the cause of diseases classified elsewhere; O99.331 Smoking (tobacco) complicating pregnancy, first trimester; F17.210 Nicotine dependence, cigarettes, uncomplicated; D64.9 Anemia, unspecified; O99.011 Anemia complicating pregnancy, first trimester; O23.41 Unspecified infection of urinary tract in pregnancy, first trimester; N12 Tubulo-interstitial nephritis, not specified as acute or chronic

== ENCOUNTER 2023-06-18 07:40 | Inpatient (IN) ==
[2023-06-18] MEDS ORDERED: LIDOCAINE 1% LOCAL 20 ML VIAL INFIL PRN (08:14)
--- OUTSIDE RECORDS SUMMARY | 2023-06-18 08:47 | External Medical Summary ---
Author Name Unknown Address Unknown Organization [id number]:[facility] [address] [place] [id number] Laboratory Report Ordering Provider Test Date Status JUDI MUÑOZ 06/04/2023 09:25:58 Final Observation Date Value Abnormality Reference (Units ) Status Ferritin 06/04/2023 09:25:58 285 Above high normal 13 -150 (ng/mL) Final Performing Location [facility] - [address] [place] [id number]
--- OUTSIDE RECORDS SUMMARY | 2023-06-18 08:47 | External Medical Summary ---
Author Name Unknown Address Unknown Organization [id number]:[facility] [place] [address] [place] [address] Laboratory Report Ordering Provider Test Date Status JUDI MUÑOZ 06/04/2023 09:25:58 Final Observation Date Value Abnormality Reference (Units ) Status Vitamin B12 06/04/2023 09:25:58 183 [id number] (pg/mL) Final Performing Location [facility] - [address] [place] [id number]
--- OUTSIDE RECORDS SUMMARY | 2023-06-18 08:47 | External Medical Summary ---
Author Name Unknown Address Unknown Organization [id number]:[facility] [place] [facility] [address] [place] [address] Laboratory Report Ordering Provider Test Date Status JUDI MUÑOZ 06/04/2023 09:25:58 Final Observation Date Value Abnormality Reference (Units ) Status Creatinine 06/04/2023 09:25:58 0.5 0.5-1.0 (mg/dL) Final Glomerular filtration rate/1.73 sq M.predicted [Volume Rate/Area] in Serum, Plasma or Blood by Creatinine-based formula (CKD-EPI) 06/04/2023 09:25:58 >90 >=60 (mL/min) Final eGFR is calculated based on the CKD-EPI 2020 equation Performing Location [facility] [place] [facility] [address] [place] [id number]
--- OUTSIDE RECORDS SUMMARY | 2023-06-18 08:47 | External Medical Summary ---
Author Name Unknown Address Unknown Organization K01[place] [place] [facility] [address] [facility] [address] Laboratory Report Ordering Provider Test Date Status JUDI MUÑOZ 06/04/2023 09:25:58 Final Observation Date Value Abnormality Reference (Units ) Status WBC, Total 06/04/2023 09:25:58 7.43 4.00-10.8 0 (K/uL) Final RBC 06/04/2023 09:25:58 3.97 3.85-5.15 (M/uL) Final Hemoglobin 06/04/2023 09:25:58 10.7 Below low normal 12 .0-15.3 (g/dL) Final Anemia reflex testing trigge rs on a HGB < 12.0 for Females and HGB < 13.0 for Males in accordance with the WHO Anemia Guidelines
Anemia reflex testing triggers on a HGB < 12.0 for Females and HGB < 13.0 for Males in accordance with the WHO Anemia Guidelines HCT 06/04/2023 09:25:58 36.7 36.0-45.2 (%) Final MCV 06/04/2023 09:25:58 92.4 81.5-97.5 (fL) Final MCH 06/04/2023 09:25:58 27.0 27.0-34.0 (pg) Final MCHC 06/04/2023 09:25:58 29.2 32.0-36.0 (g/dL) Final RDW 06/04/2023 09:25:58 23.7 11.5-15.5 (%) Final Platelets 06/04/2023 09:25:58 293 140-400 (K /uL) Final MPV 06/04/2023 09:25:58 11.5 6.6-11.1 ( fL) Final Nucleated erythrocytes/100 leukocytes [Ratio] in Blood by Automated count 06/04/2023 09:25:58 0 <=0 (/100 WBCs) Jenae gunn Performing Location [facility] - [address] [facility] [id number]
--- OUTSIDE RECORDS SUMMARY | 2023-06-18 08:47 | External Medical Summary | Summary of Care ---
Author Name Unknown Organization [facility] Address [address] [place] [address] Phone [phone] Care Team Providers Care School Traffic Supervisor Name Role Phone Jossie Guzman Primary Care Provider Reason for Visit * Reason Onset Date Comments Anemia Follow-Up 06/02/2023 Encounter Details Date Type Department Care Team (Late st Contact Info) Description 06/02/2023 9:45 AM EST Pharmacy Pharmacy, [facility] [address] [place], [place] [id number] Clinic, Anemia [address] [place] [address] Antepartum anemia complicating * Allergies No known active allergiesdocumented as of this encounter (statuses as of 06/02/2023) Medications Medication Sig Dispensed Refills Start Date End Date Status 28-0.8 MG Oral Tablet Take by mouth. 0 Active Ferrous Sulfate 325 (65 Fe) MG Oral Tablet (Feosol)Indications:A ntepartum anemia complicating Take 1 Tablet by mouth 2 times a day. 60 Tablet 12 02/16/2023 Active Vitamin C 250 MG Oral Tablet (Ascorbic Acid)Indications:Ante anemia complicating Take 1 Tablet by mouth 2 times a day. 60 Tablet 3 02/16/2023 Active Breast Pump Dispense double electric breast pump. Dx Z39.1 1 Each 0 03/26/2023 Active documented as of this encounter (statuses as of 06/02/2023) Active Problems Problem Noted Date Diagnosed Date Iron deficiency anemia, unspecified 05/06/2023 Antepartum anemia complicating 023 Overview: Hgb 9.0 at 22w. Blood management referral Per blood management, need trial of PO iron in 2nd trimester prior to infusions. Starting Vitron C BID Food insecurity 01/18/2023 Overview: Per [facility] Protocol Health counseling 01/14/2023 Overview: Problem Action Taken Date entered Entered by Date resolved First Support noted 01/14/2023 Lisa Lorenzo RN 01/14/2023 Poor dental hygiene Encouraged dental visit 01/14/2023 Lisa Lorenzo RN 01/14/2023 nutrition Due date letter given for WIC 01/14/2023 Lisa Lorenzo RN 01/14/2023 Problem Action Taken Date entered Entered by Date resolved Current needs or questions Patient denies having any current needs or questions 03/26/2023 Tracy Abad RN 03/26/2023 Problem Action Taken Date entered Entered by Date resolved Need for baby supplies Breast pump order sent 03/26/2023 Tracy Abad RN 03/26/2023 Supervision of normal first , antepartu m 01/14/2023 Gastroesophageal reflux 08/15/2013 ADVANCE DIRECTIVE INFORMATION 06/24/2005 Overview: Not applicable (under age of 18) Estimated Date of Delivery Comme nts Yes 06/15/2023 Based on Ultraso und documented as of this encounter (statuses as of 06/02/2023) Resolved Problems Problem Noted Date Diagnosed Date Resolved Date Constipation 08/15/2013 03/31/2017 Abdominal pain, epigastric 12/22/2010 1 05/31/2016 documented as of this encounter (statuses as of 06/02/2023) Immunizations Name Administration Dates Next Due DTaP Dipth/Tet/Acell Pertussis (Infanrix), Peds 12/26/2007 IPV - Polio Virus Vaccine (Inact) 12/26/2007 MMR - Measles/Mumps/Rubella Vaccine 12/26/2007 Meningococcal Conjugate Vaccine (Menactra/Menveo ) 01/17/2014 Meningococcal MCV4O Conjugate Vaccine (Menveo) 0 06/28/2019 TDAP (age 10 and older)(Boostrix) 05/13/2023,02/2014 Varicella Vaccine (Chicken Pox) 12/26/2007 documented as of this encounter Social History Tobacco Use Types Packs/Day Years Used Date Smoking Tobacco: Never Smokeless Tobacco: Never Comments:1 smoker in househo ld, outside Alcohol Use Standard Drinks/Week Comments No 0 (1 standard drink = 0.6 oz pur e alcohol) Hunger Vital Sign Answer Date Recorded Within the past 12 months, y ou worried that your food would run out before you got the money to buy more. Sometimes true Within the past 12 months, t he food you bought just didn't last and you didn't have money to get more. Often true [place] Depression Scale Answer Date Recorded [place] Depression Scale Total 0 05/13/2023 The thought of harming myself has occurred to me . Never 05/13/2023 Estimated Date of Delivery Comme nts Yes 06/15/2023 Based on Ultraso und Sex and Gender Information Value Date Recorded Sex Assigned at Female 01/02/2023 7:22 PM EDT Gender Identity Female 01/02/2023 7:22 PM EDT Sexual Orientation Straight 01/02/2023 7: 22 PM EDT Job Start Date Occupation Industry Not on file Not on file Not on file documented as of this encounter Progress Notes * Alma Gilbert [facility] - 06/02/2023 3:28 PM EST Patient Phone Numbers Call to patient. Patient received Venofer 300 mg x 3 on 05/17, 05/24 and 05/31. Patient reports tolerating Venofer infusions went well. GA: 38w1d Estimated Date of Delivery: 06/15/23 Given proximity to patient's due date, will not repeat any additional lab work. Anemia Clinic will sign off. Thank you for allowing us to participate in the care of this patient. Thanks, Alma Gilbert [facility] Clinical Pharmacist [facility] Anemia [facility] (P: [phone]) 06/02/2023 3:29 PM documented in this encounter Plan of Treatment Upcoming Encounters Date Type Department Care Team (Late st Contact Info) Description 06/04/2023 8:45 AM EST Office Visit Gynecology/Obstetrics Selvin Kaufman [address] [place] [address] Genesis Ivory PA-C [address] [place] [id number] Nurse Mandeep [facility] Return Ka[facility] [address] [place] [id number] Health Maintenance Due Date Last Done Comments COVID-19 Vaccine (#1) 2002 GARDASIL-HPV IMMUNIZATION SERIES (2 - 2-dose series) 07/17/2014 01/17/2014 (Refused) Yearly Wellness Visit 02/19/2017 02/20/2016 , 02/15/2015, 01/17/2014, Additional history exists Depression Screening 02/04/2018 02/04/2017 Influenza Vaccine (FLU shot) (#1) 2023 Gonorrhea / Chlamydia Screen 01/15/2024 01/14/2023, 03/31/2017 Pap Smear 01/14/2026 01/14/2023 DTaP,Tdap,and Td Vaccines (8 - Td or Tdap) 05/13/2033 05/13/2023, 01/17/2014, 12/26/2007, Additional history exists Hepatitis B Completed 2002, 01/2003, 2002 MENINGOCOCCAL (MENACTRA/MENVEO) Completed 06/28/2019, 06/28/2019, 01/17/2014, Additional history exists Pneumococcal Vaccine: Pediatrics (0 to 5 Years) and At-Risk Patients (6 to 64 Years) Aged Out No longer eligible based on patient's age to complete this topic documented as of this encounter Medical Devices Implanted Type Area Newspaper Photographer Device Identifier Shelf Expiration Date Model / Serial / Lot Sheet 38x50x.85mm 7210 X6 - [id number] Implanted:Qty: 1 on 05/27/2017 by Bubba Gates DO at OR [facility] [place] Left: Eye [employer] : [employer] 01/07/2025 7210 / / [id number] documented as of this encounter Visit Diagnoses Diagnosis Antepartum anemia complicating - Primary Anemia, antepartum documented in this encounter Advance Directives Latest Code Status on File Code Status Date Activated Date Inactivated Comments Full Code 05/27/2017 4:51 PM 05/27/2017 10:32 PM This order reflects the patients wishes and were consensually agreed upon. Code Status History Code Status Date Activated Date Inactivated Comments Full Code 10/03/2010 6:05 PM 10/04/2010 4:11 PM This order reflects the patients wishes and were consensually agreed upon. Question Answer Comments Discussion of Advance Directives occurred with: Not Discussed Does the patient have a Living Will? No Does the patient have Health Care Power of Competitive Intelligence Analyst? No Care Teams School Traffic Supervisor Relationship Specialty Start Date End Date Jossie Guzman CRNP PCP - General Nurse Practitioner 03/31/17 documented as of this encounter
--- OUTSIDE RECORDS SUMMARY | 2023-06-18 08:47 | External Medical Summary | Summary of Care ---
Author Name Unknown Organization [facility] Address [address] [place] [address] Phone [phone] Care Team Providers Care Lifeguard Name Role Phone Jossie Guzman Primary Care Provider Reason for Visit * Reason Comments Outpatient Testing Encounter Details Date Type Department Care Team (Late st Contact Info) Description 06/04/2023 9:40 AM EST Laboratory Laboratory, [facility] [address] [place] [phone] [facility] [address] [place] [address] Antepartum anemia complicating Allergies No known active allergiesdocumented as of this encounter (statuses as of 06/04/2023) Medications Medication Sig Dispensed Refills Start Date [...] as of this encounter (statuses as of 06/04/2023) Active Problems Problem Noted Date Diagnosed Date [...] order sent 03/26/2023 Tracy Abad RN 03/26/2023 Problem Action Taken Date entered Entered by Date resolved Current needs or questions Patient denies having any current needs or questions 06/04/2023 Tracy Abad RN 06/04/2023 Supervision of normal first , antepartu m 01/14/2023 Gastroesophageal reflux 08/15/2013 ADVANCE DIRECTIVE INFORMATION 06/24/2005 Overview: Not applicable (under age of 18) Estimated Date of Delivery Comme nts Yes 06/15/2023 Based on Ultraso und documented as of this encounter (statuses as of 06/04/2023) Resolved Problems Problem Noted Date Diagnosed Date Resolved Date Constipation 08/15/2013 03/31/2017 Abdominal pain, epigastric 12/22/2010 1 05/31/2016 documented as of this encounter (statuses as of 06/04/2023) Immunizations Name Administration Dates Next Due DTaP [...] have money to get more. Often true [place] Depression Scale Answer Date Recorded [place] Depression Scale Total 0 05/13/2023 The thought [...] on file documented as of this encounter Plan of Treatment Pending Results Name Type Priority Associated Diagnoses Date /Time CBC WITH WBC DIFFERENTIAL AND ANEMIA REFLEX WORKUP Lab Routine Antepartum anemia complicating 06/04/2023 9:25 AM EST ANEMIA CBC Lab Routine Antepartum anemia complicating 06/04/2023 9:25 AM EST DIFFERENTIAL, AUTOMATED Lab Routine Antepartum anemia complicating 06/04/2023 9:25 AM EST ANEMIA REFLEX CHEMISTRY HOLD Lab Routine Antepartum anemia complicating 06/04/2023 9:25 AM EST Health Maintenance Due Date Last Done Comments [...] this encounter Medical Devices Implanted Type Area Neuro Intensivist Physician Device Identifier Shelf Expiration Date Model / Serial / Lot Sheet 38x50x.85mm 7210 X6 - [id number] Implanted:Qty: 1 on 05/27/2017 by Bubba Gates, at [place] [facility] [place] Left: Eye [employer] 01/07/2025 7210 / / [id number] documented as of this encounter Visit Diagnoses Diagnosis Antepartum anemia complicating Anemia, antepartum documented in this encounter Advance [...] the patient have Health Care Power of Quality Assurance? No Care Teams Lifeguard Relationship Specialty Start Date End Date Jossie Guzman CRNP PCP - General Nurse Practitioner 03/31/17 documented as of this encounter
--- OUTSIDE RECORDS SUMMARY | 2023-06-18 08:47 | External Medical Summary | Summary of Care ---
Author Name Unknown Organization [facility] Address [address] [place] [address] Phone [phone] Care Team Providers Care Racing Driver Name Role Phone Jossie Guzman Primary Care Provider Reason for Visit * Reason Comments IV Therapy Venofer Encounter Details Date Type Department Care Team (Latest Contact Info) Description 05/31/2023 10:30 AM EST Hem/Onc Treatment Hematology/Oncology Treatment, [address] [address] [place], [address] Hem Onc Scene [address] [place] [address] Iron deficiency anemia, unspecified iron deficiency anemia type* Allergies No known active allergiesdocumented as of this encounter (statuses as of 05/31/2023) Medications Medication Sig Dispensed Refills Start Date [...] as of this encounter (statuses as of 05/31/2023) Active Problems Problem Noted Date Diagnosed Date [...] 03/26/2023 Supervision of normal first , antepartu 01/14/2023 Gastroesophageal reflux 08/15/2013 ADVANCE DIRECTIVE INFORMATION 06/24/2005 Overview: Not applicable (under age of 18) Estimated Date of Delivery Comme nts Yes 06/15/2023 Based on Ultraso und documented as of this encounter (statuses as of 05/31/2023) Resolved Problems Problem Noted Date Diagnosed Date Resolved Date Constipation 08/15/2013 03/31/2017 Abdominal pain, epigastric 12/22/2010 1 05/31/2016 documented as of this encounter (statuses as of 05/31/2023) Immunizations Name Administration Dates Next Due DTaP [...] have money to get more. Often true [place] Depression Scale Answer Date Recorded [place] Depression Scale Total 0 05/13/2023 The thought [...] on file documented as of this encounter Last Filed Vital Signs Vital Sign Reading Time Taken Comments Blood Pressure 122/74 05/31/2023 11:07 AM EST Pulse 93 05/31/2023 11:07 AM EST Temperature 36.6 C (97.9 F) 05/31/2023 11:[address] Respiratory Rate 16 05/31/2023 11:07 AM EST Oxygen Saturation 97% 05/31/2023 11:07 AM EST Inhaled Oxygen Concentration - - Weight - - Height - - Body Mass Index - - documented in this encounter Nursing Notes * Zachariah Ren, RN - 05/31/2023 1:13 PM EST Pt infusion complete. Pt denies any issues during infusion/post infusion. Pt is feeling well without any symptoms. Goals: Patient will remain free from injury. Possible barriers to meeting goals: , IV lines Stability of the patient: Moderately stable - low risk of patient condition declining or worsening Summary regarding today's goals: Met: Pt remained free from harm. * Zachariah Ren RN - 05/31/2023 11:07 AM EST Chair 5. Pt arrived for Venofer treatment. IV site placed without issue. Fluids infusing. Venofer infusing. Pt denies any issues at this time. Safety and Risk for Injury Patient will remain free from injury. Ensure appropriate safety devices are available. Provide and maintain safe environment. documented in this encounter Plan of Treatment Upcoming Encounters Date Type Department Care Team (Late st Contact Info) Description 06/02/2023 9:45 AM EST Pharmacy Pharmacy, [address] [address] Clinic, [address] [address] Health Maintenance Due Date Last Done Comments [...] this encounter Medical Devices Implanted Type Area Solar Manufacturer'S Representative Device Identifier Shelf Expiration Date Model / Serial / Lot Sheet 38x50x.85mm 7210 X6 - [id number] Implanted:Qty: 1 on 05/27/2017 by Bubba Gates DO at OR [facility] [place] Left: Eye [employer] : [employer] 01/07/2025 7210 / / [id number] documented as of this encounter Visit Diagnoses Diagnosis Iron deficiency anemia, unspecified iron deficiency anemia type- Primary documented in this encounter Administered Medications Active Administered Medications - up to 3 most recent administrations Medication Order MAR Action Action Date Dose Rate Site diphenhydrAMINE (Benadryl) inj 50 mg 50 mg, IV Push, ONCE PRN Other, Hypersensitivity Reaction, Starting on Wed05/31/23 at 1044, Until Wed06/01/23 at 1043, For 24 hours EPINEPHrine 1 MG/ML inj 0.3 mg 0.3 mg, Intramuscular, ONCE PRN Other, Hypersensitivity Reaction or Anaphylaxis, Starting on Wed05/31/23 at 1044, Until Wed06/01/23 at 1043, For 24 hours hEParin 100 UNIT/ML Lock Flush inj 500 Units 500 Units (5 mL), IV Lock, PRN Other, IV Flush, Starting on Wed05/31/23 at 1044, Until Wed06/01/23 at 1043, For 24 hours, Do not flush if lock, PICC, or central line not in place; IV infusing or unable to flush. Hydrocortisone Sod Suc (PF) (Solu-Cortef) inj 100 mg 100 mg, IV Push, ONCE PRN Other, Hypersensitivity Reaction, Starting on Wed05/31/23 at 1044, Until Wed06/01/23 at 1043, For 24 hours NSS infusion 500 mL, Intravenous, at 50 mL/hr, CONTINUOUS, Starting on Wed05/31/23 at 1145, Until Wed05/31/23 at 2144 Start Infusion 05/31/2023 10:51 AM EST 500 mL 50 mL/hr oxygen GAS Inhalation, OXYGEN, First dose on Wed05/31/23 at 1115, Until Discontinued, Device/Managed by: Low Flow Device, Goal SPO2 (%): 91-95, Starting Device: Nasal Cannula, Initial Flow Rate (LPM): 2, Lowest Support: Nasal Cannula: Flow 0-6 LPM. Titrate up/down by 1 LPM., Higher Support: Non-Rebreather (NRB) Mask: Minimum of 10 LPM. Titrate to maintain bag inflation., Titration Interval: Q2 minutes and as needed., Notify Provider: For sudden DECREASE in resting SPO2 to less than 85% and when escalating delivery device., Wean patient off Oxygen when the oxygen saturation is greater than or equal to 93% sodium chloride 0.9 % flush central line 10 mL 10 mL, IV Push, PRN Other, IV Flush, Starting on Wed05/31/23 at 1044, Until Wed06/01/23 at 1043, For 24 hours, Do not flush if lock, PICC, or central line not in place; IV infusing or unable to flush. Inactive Administered Medications - up to 3 most recent administrations Medication Order MAR Action Action Date Dose Rate Site Iron Sucrose (Venofer) 300 mg in NSS 250 mL ivpb 300 mg, IV Piggyback, ONCE, 1 dose, On Wed05/31/23 at 1215, Administer over 90 Minutes Start Infusion 05/31/2023 10:51 AM EST 300 mg 166.67 mL/hr documented in this encounter Advance Directives Latest [...] the patient have Health Care Power of Outsole Cementer? No Care Teams Racing Driver Relationship Specialty Start Date End Date Jossie Guzman CRNP PCP - General Nurse Practitioner 03/31/17 documented as of this encounter
--- OUTSIDE RECORDS SUMMARY | 2023-06-18 08:47 | External Medical Summary ---
Author Name Unknown Address Unknown Organization K01:[facility] [place] [address] [facility] [address] Laboratory Report Ordering Provider Test Date Status JUDI MUÑOZ 06/04/2023 09:26:32 Final Observation Date Value Abnormality Reference (Units ) Status Streptococcus agalactiae DNA [Presence] in Specimen by ALMA ROSA with probe detection 06/04/2023 09:26:32 Negative Negative Final No Group B Streptococcus det ected by culture-enhanced PCR (amplified probe).
The collection of vaginal/rectal swab specimen combinations (FDA approved specimen type) is optimal for the detection of Group B Streptococcus. Single source collection (vaginal only or rectal only) or alternate specimen sources may lead to false negative results. Performing Location [facility] [place] [address] [facility] [address]
--- OUTSIDE RECORDS SUMMARY | 2023-06-18 08:47 | External Medical Summary | Summary of Care ---
Author Name Unknown Organization [facility] Address [address] [facility] [place] [address] Phone [phone] Care Team Providers Care Motorsports Technician Name Role Phone Jossie Guzman Primary Care Provider Reason for Visit * Reason Comments Return Visit Encounter Details Date Type Department Care Team (Late st Contact Info) Description 06/04/2023 8:45 AM EST Office Visit Gynecology/Obstetri lilliam Kaufman [address] [place] [address] Genesis Ivory PA-C [address] [place] [address] Nurse Mandeep Healthy [facility] Return Kaelyn [address] [place] [address] Supervision of normal first , antepartum*; Health counseling; Antepartum anemia complicating Allergies No known active [...] Next Due DTaP Dipth/Tet/Acell Pertussis (Infanrix), Peds 12/26/2007,06/11/2003,01/03/2003,08/07,2002 HIB Hep B - HIB Hepatitis B (Comvax) 2002, 2002,2002 IPV - Polio Virus Vaccine (Inact) 2007,06/11/2003,2002,03/30 MMR - Measles/Mumps/Rubella Vaccine 12/26/2007,1 Meningococcal Conjugate Vacc ine (Menactra/Menveo) 01/17/2014 Meningococcal MCV4O Conjugat e Vaccine (Menveo) 06/28/2019 Pneumococcal Conjugate Vacci ne, 7 Valent 2002,2002,2002 TB Ivis Test 08/28/2003 TDAP (age 10 and older)(Boostrix) 05/13/2023,02/2014 Varicella Vaccine (Chicken Pox) 12/26/2007,03/07 documented as of this encounter Social History [...] have money to get more. Often true [place] Depression Scale Answer Date Recorded [place] Depression Scale Total 0 05/13/2023 The thought [...] Sign Reading Time Taken Comments Blood Pressure 100/62 06/04/2023 8:40 AM EST Pulse - - Temperature - - Respiratory Rate - - Oxygen Saturation - - Inhaled Oxygen Concentration - - Weight 63 kg (139 lb) 06/04/2023 8:40 AM EST Height - - Body Mass Index 23.13 05/13/2023 1:20 PM EST documented in this encounter Progress Notes * Genesis Ivory PA-C - 06/04/2023 9:02 AM EST 38w3d Last seen at 35 weeks. Due for GBS culture, collected. Requesting cervical check. Denies LOF, VB, contractions. Pos fm. Was hoping to get RSV vaccine. Reviewed 32-36 week recommendation, pt understands. IV iron x 3 complete. Repeat CBC today ahead of delivery. Asking to scheduled IOL for postdates. Reviewed 41 weeks, does not wish to go that long. Asking to schedule [id number]. Scheduled for [facility]/18/2023 at [facility], given information and phone number. Labor precautions given. RTC in 1 week Genesis Ivory PA-C documented in this encounter Nursing Notes * Tracy Abad RN - 06/04/2023 8:47 AM EST Patient seen by [facility] Entry Level Software Developer. Patient denies any questions or concerns. * Caroline Britt LPN - 06/04/2023 8:41 AM EST Pt is currently 38w3d with an Estimated Date of Delivery: 06/15/23 - Doing well without complaints. Wanted to get RSV vaccine, advised that it can only be given 32 - 36.6 wks, patient has not been seen in several weeks. Not taking oral iron, states because she is getting iron infusions. Taking . Needs GBS swab today. documented in this encounter Plan of Treatment Upcoming Encounters Date Type Department Care Team (Late st Contact Info) Description 06/04/2023 9:40 AM EST Laboratory Laboratory, [facility] [address] [facility] [place] [id number] [facility] [address] [facility] [place] [address] Antepartum anemia complicating Pending Results Name Type Priority Associated Diagnoses Date /Time GROUP B STREP CULTURE/PCR Lab Routine Supervision of normal first , antepartum 06/04/2023 9:26 AM EST CBC WITH WBC DIFFERENTIAL AND ANEMIA REFLEX WORKUP Lab Routine Antepartum anemia complicating 06/04/2023 9:25 AM EST Scheduled Orders Name Type Priority Associated Diagnoses Orde r Schedule GROUP B STREP CULTURE/PCR Lab Routine Supervision of normal first , antepartum Expected: 06/04/2023, Expires: 06/04/2024 CBC WITH WBC DIFFERENTIAL AND ANEMIA REFLEX WORKUP Lab Routine Antepartum anemia complicating Expected: 06/04/2023, Expires: 06/04/2024 Health Maintenance Due Date Last Done Comments [...] this encounter Medical Devices Implanted Type Area Bulb Sorter Device Identifier Shelf Expiration Date Model / Serial / Lot Sheet 38x50x.85mm 7210 X6 - [id number] Implanted:Qty: 1 on 05/27/2017 by Bubba Gates DO at OR [facility] [place] Left: Eye [employer] : [employer] 01/07/2025 7210 / / [id number] documented as of this encounter Visit Diagnoses Diagnosis Supervision of normal first , antepartum- Primary Health counseling Other specified counseling Antepartum anemia complicating Anemia, antepartum Antepartum anemia complicating Anemia, antepartum documented in [...] the patient have Health Care Power of [place]? No Care Teams Motorsports Technician Relationship Specialty Start Date End Date Jossie Guzman CRNP PCP - General Nurse Practitioner 03/31/17 documented as of this encounter
--- OUTSIDE RECORDS SUMMARY | 2023-06-18 08:47 | External Medical Summary | Summary of Care ---
Author Name Unknown Organization [facility] Address [address] [facility] [place] [address] Phone [phone] Care Team Providers Care Cotton Bag Clipper Name Role Phone Jossie Guzman Primary Care Provider Reason for Visit * Reason Comments Return Visit Encounter Details Date Type Department Care Team (Late st Contact Info) Description 06/04/2023 8:45 AM EST Office Visit Gynecology/Obstetri lilliam Kaufman [address] [place] [address] Genesis Ivory PA-C [address] [place] [address] Nurse Mandeep Healthy Beginnings Return Kaelyn [address] [employer] [place] [address] Supervision of normal first , antepartum*; Health [...] have money to get more. Often true [place] Depression Scale Answer Date Recorded [place] Depression Scale Total 0 05/13/2023 The thought [...] to go that long. Asking to schedule [id number]. Scheduled for 06/18/2023 at [facility], given information and phone number. Labor precautions given. RTC in 1 week Genesis Ivory PA-C documented in this encounter Nursing Notes * Tracy Abad RN - 06/04/2023 8:47 AM EST Patient seen by [facility] Director [employer]. Patient denies any questions or concerns. * [...] Description 06/04/2023 9:40 AM EST Laboratory Laboratory, [facility] [address] [facility] [place] [id number] [facility] [address] [facility] [place] [address] Antepartum anemia complicating Pending Results Name Type [...] this encounter Medical Devices Implanted Type Area First Helper Device Identifier Shelf Expiration Date Model / Serial / Lot Sheet 38x50x.85mm 7210 X6 - [id number] Implanted:Qty: 1 on 05/27/2017 by Bubba Gates DO at [place] [facility] [place] Left: Eye [employer]UM[employer] : [employer] 01/07/2025 7210 / / [id number] documented as of this encounter Visit Diagnoses [...] the patient have Health Care Power of Journalism Instructor? No Care Teams Cotton Bag Clipper Relationship Specialty Start Date End Date Jossie Guzman CRNP PCP - General Nurse Practitioner 03/31/17 documented as of this encounter
--- OUTSIDE RECORDS SUMMARY | 2023-06-18 08:47 | External Medical Summary ---
Author Name Unknown Address Unknown Organization K01:[facility] [place] [address] [place] [address] Laboratory Report Ordering Provider Test Date Status TONIJUDI 06/04/2023 09:25:58 Final Observation Date Value Abnormality Reference (Units ) Status Retic, % (auto) 06/04/2023 09:25:58 4.21 Above high normal 0.80-1.90 (%) Final Reticulocytes, Absolute 06/04/2023 09:25:58 168.8 Above high normal 31.3-100.1 (K/uL) Final Reticulocyte fraction, immature 06/04/2023 09:25:58 42.4 Above high normal 2.5-20.6 (%) Final Reticulocyte HGB 06/04/2023 09:25:58 36.4 29.7-37.4 (pg) Final Performing Location [facility] [place] [address] [facility] [address]
--- OUTSIDE RECORDS SUMMARY | 2023-06-18 08:47 | External Medical Summary ---
Author Name Unknown Address Unknown Organization K01:[facility]ATORY [facility] - [address] [place] [address] Laboratory Report Ordering Provider Test Date Status JUDI MUÑOZ 06/04/2023 09:25:58 Final Observation Date Value Abnormality Reference (Units ) Status SYNC LEUKOCYTES IN BLOOD BY AUTOMATED COUNT 06/04/2023 09:25:58 7.43 4.00-10.80 (K/uL) Final Segs 06/04/2023 09:25:58 55.1 40.0-75.0 (%) Final Lymphs % 06/04/2023 09:25:58 26.4 18.0-42.0 (%) Final Monos 06/04/2023 09:25:58 12.7 Above high normal 1.0-11.0 (%) Final Eosinophils 06/04/2023 09:25:58 3.5 0.0-6.0 (%) Final Basos 06/04/2023 09:25:58 0.8 0.0-2.0 (%) Final Immature Granulocyte, Percent 06/04/2023 09:25:58 1.5 0.0-2.0 (%) Final Absolute Segs 06/04/2023 09:25:58 4.10 1.80-7.70 (K/uL) Final Lymphs, absolute 06/04/2023 09:25:58 1.96 1.00-4.80 (K/ul) Final Monos, Abs 06/04/2023 09:25:58 0.94 0.00-1.10 (K/uL) Final Eos, Abs 06/04/2023 09:25:58 0.26 0.00-0.70 (K/uL) Final Basos, Abs 06/04/2023 09:25:58 0.06 0.00-0.20 (K/uL) Final Immature Granulocytes, Number 06/04/2023 09:25:58 0.11 0.00-0.20 (K/uL) Final Performing Location [facility] [place] [address] [facility] [address]
--- OUTSIDE RECORDS SUMMARY | 2023-06-18 08:47 | External Medical Summary ---
Author Name Unknown Address Unknown Organization K01:[facility] [place] [address] [place] [address] Laboratory Report Ordering Provider Test Date Status TONIJUDI 06/04/2023 09:25:58 Final Observation Date Value Abnormality Reference (Units ) Status Richmond cells [Presence] in Blood by Light microscopy 06/04/2023 09:25:58 Moderate Abnormal None Seen Final Ovalocytes [Presence] in Blood by Light microscopy 06/04/2023 09:25:58 Moderate Abnormal None Seen Final Schistocytes 06/04/2023 09:25:58 Few Abnormal None Seen Final Variant lymphocytes [Presence] in Blood by Light microscopy 06/04/2023 09:25:58 Present Abnormal None Seen Final Performing Location [facility] - [address] [place] [address]
--- OUTSIDE RECORDS SUMMARY | 2023-06-18 08:47 | External Medical Summary | Summary of Care ---
Author Name Unknown Organization [facility] Address [address] [place] [address] Phone [phone] Care Team Providers Care Missile Tracking Technician Name Role Phone Jossie Guzman Primary Care Provider Reason for Visit * Reason Onset Date Comments Anemia Follow-Up 05/19/2023 Encounter Details Date Type Department Care Team (Late st Contact Info) Description 05/19/2023 10:00 AM EST Pharmacy Pharmacy, [place] [address] [place], [place] [id number] Clinic, Anemia [address] [place] [address] Antepartum anemia complicating * Allergies No known active allergiesdocumented as of this encounter (statuses as of 05/19/2023) Medications Medication Sig Dispensed Refills Start Date [...] as of this encounter (statuses as of 05/19/2023) Active Problems Problem Noted Date Diagnosed Date [...] as of this encounter (statuses as of 05/19/2023) Resolved Problems Problem Noted Date Diagnosed Date Resolved Date Constipation 08/15/2013 03/31/2017 Abdominal pain, epigastric 12/22/2010 1 05/31/2016 documented as of this encounter (statuses as of 05/19/2023) Immunizations Name Administration Dates Next Due DTaP [...] have money to get more. Often true [place] Depression Scale Answer Date Recorded [place] Depression Scale Total 0 05/13/2023 The thought [...] this encounter Progress Notes * Alma Gilbert [facility] - 05/19/2023 3:21 PM EST Patient received first dose of Venofer 300 mg x 3 repletion series on 05/17 and appeared to have tolerated it without issue. Next scheduled: 05/24 Scheduled to be completed: 05/31 GA: [id number] Estimated Date of Delivery: 06/15/23 Follow-up after completion of series to ensure all doses are administered prior to delivery. Anemia Clinic will continue to follow. Thank you for allowing us to participate in the care of thispatient. Thanks, Alma Gilbert [facility] Clinical Pharmacist [facility] Anemia Clinic (P: [phone]) 05/19/2023 3:21 PM documented in this encounter Plan of Treatment Upcoming Encounters Date Type Department Care Team (Late st Contact Info) Description 05/24/2023 10:30 AM EST Hem/Onc Treatment Hematology/Oncology Treatment, [place] [address] [facility] [place] [address] Maura, Chair 11 Hem Onc [address] [place] [address] 05/31/2023 10:30 AM EST Hem/Onc Treatment Hematology/Oncology Treatment, [place] [address] [facility] [place] [address] Maura, Chair 11 Hem Onc [facility] [address] [facility], [place] [address] 06/02/2023 9:45 AM EST Pharmacy Pharmacy, [place] [address] [place] [address] Clinic, Anemia [address] [place] [address] Health Maintenance Due Date Last Done Comments [...] this encounter Medical Devices Implanted Type Area Political Theory Professor Device Identifier Shelf Expiration Date Model / Serial / Lot Sheet 38x50x.85mm 7210 X6 - [id number] Implanted:Qty: 1 on 05/27/2017 by Bubba Gates DO [place] [facility] [place] Eye [employer] : [employer] 01/07/2025 7210 / / [id number] documented as of this encounter Visit Diagnoses [...] the patient have Health Care Power of Licensed Life And Health Agent? No Care Teams Missile Tracking Technician Relationship Specialty Start Date End Date Jossie Guzman CRNP PCP - General Nurse Practitioner 03/31/17 documented as of this encounter
--- OUTSIDE RECORDS SUMMARY | 2023-06-18 08:47 | External Medical Summary | Summary of Care ---
Author Name Unknown Organization [facility] Address [address] [place] [address] Phone [phone] Care Team Providers Care Publication Editor Name Role Phone Jossie Guzman Primary Care Provider Reason for Visit * Reason Comments IV Therapy Venofer Encounter Details Date Type Department Care Team (Latest Contact Info) Description 05/31/2023 10:30 AM EST Hem/Onc Treatment Hematology/Oncology Treatment, [address] [address] Maura, Chair 11 Hem Onc [place] [address] [place] [address] Iron deficiency anemia, unspecified iron deficiency anemia [...] have money to get more. Often true [place] Depression Scale Answer Date Recorded [place] Depression Scale Total 0 05/13/2023 The thought [...] Description 06/02/2023 9:45 AM EST Pharmacy Pharmacy, [address] [address] Clinic, [address] [address] Health Maintenance Due Date Last Done Comments [...] this encounter Medical Devices Implanted Type Area Concrete Float Maker Device Identifier Shelf Expiration Date Model / Serial / Lot Sheet 38x50x.85mm 7210 X6 - [id number] Implanted:Qty: 1 on 05/27/2017 by Bubba Gtaes DO at [place] [facility] [place]: Eye [employer] : [employer] 01/07/2025 7210 / / [id number] documented as of this encounter Visit Diagnoses [...] the patient have Health Care Power of Cuff Setter? No Care Teams Publication Editor Relationship Specialty Start Date End Date Jossie Guzman CRNP PCP - General Nurse Practitioner 03/31/17 documented as of this encounter
--- OUTSIDE RECORDS SUMMARY | 2023-06-18 08:47 | External Medical Summary | Summary of Care ---
Author Name Unknown Organization [facility] Address [address] [facility] [place] [address] Phone [phone] Care Team Providers Care Belt Polisher Name Role Phone Jossie Guzman Primary Care Provider Encounter Details Date Type Department Care Team (Late st Contact Info) Description 06/01/2023 Telephone Gynecology/Obstetrics [facility] [address] [place] [address] Genesis Ivory PA-C [address] [place] [address] Allergies No known active allergiesdocumented as of this encounter (statuses as of 06/14/2023) Medications Medication Sig Dispensed Refills Start Date [...] as of this encounter (statuses as of 06/14/2023) Active Problems Problem Noted Date Diagnosed Date [...] date letter given for [facility] 01/14/2023 Lisa Loernzo RN 01/14/2023 Problem Action Taken Date entered [...] as of this encounter (statuses as of 06/14/2023) Resolved Problems Problem Noted Date Diagnosed Date Resolved Date Constipation 08/15/2013 03/31/2017 Abdominal pain, epigastric 12/22/2010 1 05/31/2016 documented as of this encounter (statuses as of 06/14/2023) Immunizations Name Administration Dates Next Due DTaP [...] have money to get more. Often true [place] Depression Scale Answer Date Recorded [place] Depression Scale Total 0 05/13/2023 The thought [...] on file documented as of this encounter Miscellaneous Notes * Telephone Encounter - Caroline Britt LPN - 06/01/2023 9:51 AM EST left message for patient to call office. [facility] missed [facility] last [facility] MyG also sent documented in this encounter Plan of Treatment Health Maintenance Due Date Last Done Comments [...] this encounter Medical Devices Implanted Type Area Plant Breeder Scientist Device Identifier Shelf Expiration Date Model / Serial / Lot Sheet 38x50x.85mm 7210 X6 - [id number] Implanted:Qty: 1 on 05/27/2017 [place] Bubba Gates DO [place] [facility] [place] Eye [employer] : [employer] 01/07/2025 7210 / / [id number] documented as of this encounter Advance Directives Latest Code Status [...] the patient have Health Care Power of Molecular Geneticist? No Care Teams Belt Polisher Relationship Specialty Start Date End Date Jossie Guzman CRNP PCP - General Nurse Practitioner 03/31/17 documented as of this encounter
--- OUTSIDE RECORDS SUMMARY | 2023-06-18 08:47 | External Medical Summary ---
Author Name Unknown Address Unknown Organization K01:[facility]ORY [facility] [place] [address] [place] [address] Laboratory Report Ordering Provider Test Date Status JUDI MUÑOZ 06/04/2023 09:25:58 Final Observation Date Value Abnormality Reference (Units ) Status Iron 06/04/2023 09:25:58 116 33-151 (ug/dL) Final Iron-binding capacity 06/04/2023 09:25:58 471 Above high normal 250-425 (ug/dL) Final Transferrin Sat % 06/04/2023 09:25:58 25 15-55 (%) Final Performing Location LAB[facility]ATORY [facility] [place] - [address] [place] [address]
--- OUTSIDE RECORDS SUMMARY | 2023-06-18 08:47 | External Medical Summary | Summary of Care ---
Author Name Unknown Organization [facility] Address [address] [place] [address] Phone [phone] Care Team Providers Care Shield Runner Name Role Phone Jossie Guzman Primary Care Provider Reason for Visit * Reason Comments Infusion Venofer 2/3 Encounter Details Date Type Department Care Team (Latest Contact Info) Description 05/24/2023 10:30 AM EST Hem/Onc Treatment Hematology/Oncology Treatment, [address] [address] Maura, Chair 11 Hem Onc [address] [place] [address] Iron deficiency anemia, unspecified iron deficiency anemia type* Allergies No known active allergiesdocumented as of this encounter (statuses as of 05/24/2023) Medications Medication Sig Dispensed Refills Start Date [...] as of this encounter (statuses as of 05/24/2023) Active Problems Problem Noted Date Diagnosed Date [...] as of this encounter (statuses as of 05/24/2023) Resolved Problems Problem Noted Date Diagnosed Date Resolved Date Constipation 08/15/2013 03/31/2017 Abdominal pain, epigastric 12/22/2010 1 05/31/2016 documented as of this encounter (statuses as of 05/24/2023) Immunizations Name Administration Dates Next Due DTaP [...] have money to get more. Often true [place] Depression Scale Answer Date Recorded [place] Depression Scale Total 0 05/13/2023 The thought [...] Sign Reading Time Taken Comments Blood Pressure 111/64 05/24/2023 11:08 AM EST Pulse 94 05/24/2023 11:08 AM EST Temperature 36.5 C (97.7 F) 05/24/2023 11:[address] Respiratory Rate 18 05/24/2023 11:08 AM EST Oxygen Saturation 97% 05/24/2023 11:08 AM EST Inhaled Oxygen Concentration - - Weight - - Height - - Body Mass Index - - documented in this encounter Nursing Notes * Lisa Armas LPN - 05/24/2023 11:09 AM EST 1040: Chair 6. Pt arrived for Venofer 2/3 infusion. PIV in RFA. Pt tolerated well. VSS. No complaints at this time. 1220: Pt tolerated Venofer infusion well. PIV removed intact. Pt to return in one week. Discharged in stable condition. documented in this encounter Plan of Treatment Upcoming Encounters Date Type Department Care Team (Late st Contact Info) Description 05/31/2023 10:30 AM EST Hem/Onc Treatment Hematology/Oncology Treatment, [place] [address] [place] [address] Maura, Chair 11 Hem Onc [place] [address] [place] [address] 06/02/2023 9:45 AM EST Pharmacy Pharmacy, [place] [address] [place], [place] [phone] Clinic, [place] [address] [place] [address] Health Maintenance Due Date Last Done Comments [...] this encounter Medical Devices Implanted Type Area Bait Packer Device Identifier Shelf Expiration Date Model / Serial / Lot Sheet 38x50x.85mm 7210 X6 - [id number] Implanted:Qty: 1 on 05/27/2017 by Bubba Gates DO at [place] [facility] [place] Left: Eye [employer] : [employer] 01/07/2025 7210 / / [id number] documented as of this encounter Visit Diagnoses Diagnosis Iron deficiency anemia, unspecified iron deficiency anemia type- Primary documented in this encounter Administered Medications Active Administered Medications - up to 3 most recent administrations Medication Order MAR Action Action Date Dose Rate Site diphenhydrAMINE (Benadryl) inj 50 mg 50 mg, IV Push, ONCE PRN Other, Hypersensitivity Reaction, Starting on Wed05/24/23 at 1042, Until Wed05/25/23 at 1041, For 24 hours EPINEPHrine 1 MG/ML inj 0.3 mg 0.3 mg, Intramuscular, ONCE PRN Other, Hypersensitivity Reaction or Anaphylaxis, Starting on Wed05/24/23 at 1042, Until Wed05/25/23 at 1041, For 24 hours hEParin 100 UNIT/ML Lock Flush inj 500 Units 500 Units (5 mL), IV Lock, PRN Other, IV Flush, Starting on Wed05/24/23 at 1042, Until Wed05/25/23 at 1041, For 24 hours, Do not flush if lock, PICC, or central line not in place; IV infusing or unable to flush. Hydrocortisone Sod Suc (PF) (Solu-Cortef) inj 100 mg 100 mg, IV Push, ONCE PRN Other, Hypersensitivity Reaction, Starting on Wed05/24/23 at 1042, Until Wed05/25/23 at 1041, For 24 hours NSS infusion 500 mL, Intravenous, at 50 mL/hr, CONTINUOUS, Starting on Wed05/24/23 at 1145, Until Wed05/24/23 at 2144 Start Infusion 05/24/2023 10:43 AM EST 500 mL 50 mL/hr oxygen GAS Inhalation, OXYGEN, First dose on Wed05/24/23 at 1115, Until Discontinued, Device/Managed by: Low [...] Push, PRN Other, IV Flush, Starting on Wed05/24/23 at 1042, Until Wed05/25/23 at 1041, For 24 hours, Do not flush if lock, PICC, or central line not in place; IV infusing or unable to flush. Inactive Administered Medications - up to 3 most recent administrations Medication Order MAR Action Action Date Dose Rate Site Iron Sucrose (Venofer) 300 mg in NSS 250 mL ivpb 300 mg, IV Piggyback, ONCE, 1 dose, On Wed05/24/23 at 1215, Administer over 90 Minutes Start Infusion 05/24/2023 10:43 AM EST 300 mg 166.67 mL/hr documented [...] the patient have Health Care Power of Pre Sales Network Engineer? No Care Teams Shield Runner Relationship Specialty Start Date End Date Jossie Guzman CRNP PCP - General Nurse Practitioner 03/31/17 documented as of this encounter
--- OUTSIDE RECORDS SUMMARY | 2023-06-18 08:48 | External Medical Summary | Summary of Care ---
Author Name Unknown Organization [facility] Address [address] [place] [address] Phone [phone] Care Team Providers Care Workforce Development Specialist Name Role Phone Jossie Guzman Primary Care Provider Reason for Visit * Reason Onset Date Comments Anemia Follow-Up 05/06/2023 * Evaluate & Treat - Unlimited Visits (Within 10 days (routine)) - Authorized Specialty Diagnoses / Procedures Referred By Contac t Referred To Contact Pharmacist / Pharmacy Diagnoses RICKY (iron deficiency anemia) Breonna Gibson CRNP [address] [place] [address] Referral ID Status Reason Start Date Expiration Date Visits Requested Visits Authorized [id number] Authorized Specialty Services Required 3 99 99 Encounter Details Date Type Department Care Team (Late st Contact Info) Description 05/04/2023 4:00 PM [facility] Pharmacy Pharmacy, [place] [address] [place], [place] [phone] Clinic, Anemia [address] [place], [place] [phone] Antepartum anemia complicating * Allergies No known active allergiesdocumented as of this encounter (statuses as of 05/06/2023) Medications Medication Sig Dispensed Refills Start Date [...] as of this encounter (statuses as of 05/06/2023) Active Problems Problem Noted Date Diagnosed Date Antepartum anemia complicating 023 Overview: Hgb 9.0 [...] as of this encounter (statuses as of 05/06/2023) Resolved Problems Problem Noted Date Diagnosed Date Resolved Date Constipation 08/15/2013 03/31/2017 Abdominal pain, epigastric 12/22/2010 1 05/31/2016 documented as of this encounter (statuses as of 05/06/2023) Immunizations Name Administration Dates Next Due DTaP Dipth/Tet/Acell Pertussis (Infanrix), Peds 12/26/2007,06/11/2003,01/03/2003,08/07,2002 HIB Hep B - HIB Hepatitis B (Comvax) 2002, 2002,2002 IPV - Polio Virus Vaccine (Inact) 2007,06/11/2003,2002,03/30 MMR - Measles/Mumps/Rubella Vaccine 12/26/2007,1 Meningococcal Conjugate Vacc ine (Menactra/Menveo) 01/17/2014 Meningococcal MCV4O Conjugat e Vaccine (Menveo) 06/28/2019 Pneumococcal Conjugate Vacci ne, 7 Valent 2002,2002,2002 TB Ivis Test 08/28/2003 TDAP (age 10 and older)(Boostrix) 01/17/2014 Varicella Vaccine (Chicken Pox) 12/26/2007,03/07 documented as [...] have money to get more. Often true [place] Depression Scale Answer Date Recorded [place] Depression Scale Total 0 03/26/2023 The thought of harming myself has occurred to me . Never 03/26/2023 Estimated Date of Delivery Comme nts Yes [...] as of this encounter Progress Notes * Keren Ralph RPh - 05/06/2023 10:35 AM EST Patient Phone Numbers Patient referred by JAN Quintana, for evaluation of anemia by the Anemia Clinic. Called patient to introduce role/clinic and to review labs from 04/27/23. Hgb: 8.5 g/dL TSAT: 2 % Ferritin: 5 ng/mL GA: 34w2d Estimated Date of Delivery: 06/15/23 Hgb is below target range for the 3rd trimester. Iron studies below target range. Patient reports feeling tired, weak, dizzy and short of breath with activity. Patient is taking ferrous sulfate 325 mg PO BID and appears to be tolerating it without issue. Patient qualifies for IV iron repletion. Plan: Venofer 300 mg IV weekly x 3 doses at [facility]. Orders placed and routed to appropriate parties. Patient agreeable to intervention. Follow-up labs to be scheduled ~4-6 weeks after iron repletion completed if appropriate prior to delivery. Anemia Clinic will continue to follow. Thank you for allowing us to participate in the care of thispatient. Keren Ralph, PharmD, [facility] Clinical Pharmacist [facility] Anemia Clinic (P: [phone]) 05/06/2023 12:44 PM documented in this encounter Plan of Treatment Upcoming Encounters Date Type Department Care Team (Late st Contact Info) Description 05/13/2023 1:15 PM EST [facility] [address] [place] [address] Genesis Ivory PA-C [address] [address] 05/19/2023 10:00 AM EST Pharmacy Pharmacy, [address] [place] [address] Clinic, Anemia [address] [place] [address] Scheduled Referrals Name Type Priority Associated Diagnoses Orde r Schedule PHARMACIST MEDS THERAPY MGMT REFERRAL OP Referral Within 10 days (routine) RICKY (iron deficiency anemia) Ordered: 04/28/2023 Health Maintenance Due Date Last Done Comments COVID-19 Vaccine (#1) 2002 GARDASIL-HPV IMMUNIZATION SERIES (2 - 2-dose series) 07/17/2014 01/17/2014 (Refused) Yearly Wellness Visit 02/19/2017 02/20/2016 , 02/15/2015, 01/17/2014, Additional history exists Depression Screening 02/04/2018 02/04/2017 Influenza Vaccine (FLU shot) (#1) 2023 Gonorrhea / Chlamydia Screen 01/15/2024 01/14/2023, 03/31/2017 DTaP,Tdap,and Td Vaccines (7 - Td or Tdap) 01/18/2024 01/17/2014, 12/26/2007, 06/11/2003, Additional history exists Pap Smear 01/14/2026 01/14/2023 Hepatitis B Completed 2002, 01/2003, 2002 MENINGOCOCCAL (MENACTRA/MENVEO) Completed 06/28/2019, 06/28/2019, 01/17/2014, Additional history exists Pneumococcal Vaccine: Pediatrics (0 to 5 Years) and At-Risk Patients (6 to 64 Years) Aged Out No longer eligible based on patient's age to complete this topic documented as of this encounter Medical Devices Implanted Type Area Diffusion Operator Device Identifier Shelf Expiration Date Model / Serial / Lot Sheet 38x50x.85mm 7210 X6 - [id number] Implanted:Qty: 1 on 05/27/2017 by Bubba Gates, [place] [facility] [place] Eye [employer] : [employer] 01/07/2025 7210 / / [id number] documented as of this encounter Visit Diagnoses [...] the patient have Health Care Power of Health Care Social Worker? No Care Teams Workforce Development Specialist Relationship Specialty Start Date End Date Jossie Guzman CRNP PCP - General Nurse Practitioner 03/31/17 documented as of this encounter
--- OUTSIDE RECORDS SUMMARY | 2023-06-18 08:48 | External Medical Summary | Summary of Care ---
Author Name Unknown Organization [facility] Address [address] [facility] [address] Phone [phone] Care Team Providers Care Beautician Apprentice Name Role Phone Jossie Guzman Primary Care Provider Encounter Details Date Type Department Care Team (Late st Contact Info) Description 05/06/2023 Orders Only Hematology/Oncology [facility] [address] [place] [address] Breonna Gibson CRNP [address] [place] [address] Allergies No known active allergiesdocumented as of [...] 0 06/28/2019 TDAP (age 10 and older)(Boostrix) 01/17/2014 Varicella Vaccine (Chicken Pox) 12/26/2007 documented as [...] have money to get more. Often true [place] Depression Scale Answer Date Recorded [place] Depression Scale Total 0 03/26/2023 The thought [...] as of this encounter Plan of Treatment Upcoming Encounters Date Type Department Care Team (Late st Contact Info) Description 05/13/2023 1:15 PM EST [facility] [address] [place] [address] Genesis Ivory PA-C [address] [place] [address] 05/19/2023 10:00 AM EST [facility] [place] [address] [id number] Clinic, [facility] [address] [place] [address] Health Maintenance Due Date Last Done Comments [...] this encounter Medical Devices Implanted Type Area Filler Sifter Machine Device Identifier Shelf Expiration Date Model / Serial / Lot Sheet 38x50x.85mm 7210 X6 - [id number] Implanted:Qty: 1 on 05/27/2017 by Bubba Gates DO at [place] [facility] [place] Left: Eye [employer] 01/07/2025 7210 / / [id number] documented as of this encounter Advance Directives [...] the patient have Health Care Power of Seo Manager? No Care Teams Beautician Apprentice Relationship Specialty Start Date End Date Jossie Guzman CRNP PCP - General Nurse Practitioner 03/31/17 documented as of this encounter
--- OUTSIDE RECORDS SUMMARY | 2023-06-18 08:48 | External Medical Summary | Summary of Care ---
Author Name Unknown Organization [facility] Address [address] [facility] [address] Phone [phone] Care Team Providers Care Animal Damage Control Agent Name Role Phone Jossie Guzman Primary Care Provider Reason for Visit * Reason Onset Date Comments Appointment 05/06/2023 Marita Encounter Details Date Type Department Care Team (Late st Contact Info) Description 05/06/2023 Telephone Hematology/Oncology [facility] [place] [address] [place] [address] Breonna Gibson CRNP [address] [place] [address] Appointment (Marita) Allergies No known active allergiesdocumented as of this encounter (statuses as of 05/07/2023) Medications Medication Sig Dispensed Refills Start Date [...] as of this encounter (statuses as of 05/07/2023) Active Problems Problem Noted Date Diagnosed Date [...] as of this encounter (statuses as of 05/07/2023) Resolved Problems Problem Noted Date Diagnosed Date Resolved Date Constipation 08/15/2013 03/31/2017 Abdominal pain, epigastric 12/22/2010 1 05/31/2016 documented as of this encounter (statuses as of 05/07/2023) Immunizations Name Administration Dates Next Due DTaP [...] have money to get more. Often true Mcdonald Depression Scale Answer Date Recorded Mcdonald Depression Scale Total 0 03/26/2023 The thought [...] encounter Miscellaneous Notes * Telephone Encounter - Juanita James OSA - 05/07/2023 1:37 PM EST Attempted to contact patient and the message stated that call could not be completed at this time to call back. * Telephone Encounter - Zachariah Ren RN - 05/07/2023 1:08 PM EST [place] signed. Scheduling- please schedule patient for 2 hour appt "Venofer /3" (JAN Quintana). Pt will need weekly infusions x 3. * Telephone Encounter - Zachariah Ren RN - 05/07/2023 8:55 AM EST Routed [place] to correct pool [id number]. Will await signature. * Telephone Encounter - Zachariah Ren RN - 05/06/2023 1:09 PM EST Orders received for weekly Venofer x 3. [place] plan built and routed for signature. No auth needed. documented in this encounter Plan of Treatment Upcoming Encounters Date Type Department Care Team (Late st Contact Info) Description 05/13/2023 1:15 PM EST Office Visit Gynecology/Obstetrics [facility] [address] [place] [address] Genesis Ivory PA-C [address] [place] [address] 05/19/2023 10:00 AM EST Pharmacy Pharmacy, [place] [address] [place] [address] Clinic, [facility] [address] [place] [address] Health Maintenance Due Date Last Done Comments [...] this encounter Medical Devices Implanted Type Area Tool Grinder Set Up Operator Gear Device Identifier Shelf Expiration Date Model / Serial / Lot Sheet 38x50x.85mm 7210 X6 - [id number] Implanted:Qty: 1 on 05/27/2017 by Bubba Gates DO at [place] [facility] [place] Left: Eye [employer] 01/07/2025 7210 / / [id number] documented as of this encounter Advance Directives [...] the patient have Health Care Power of Hospitality Coordinator? No Care Teams Animal Damage Control Agent Relationship Specialty Start Date End Date Jossie Guzman CRNP PCP - General Nurse Practitioner 03/31/17 documented as of this encounter
--- OUTSIDE RECORDS SUMMARY | 2023-06-18 08:48 | External Medical Summary | Summary of Care ---
Author Name Unknown Organization [facility] Address [address] [place] [address] Phone [phone] Care Team Providers Care Clinic Physician Director Name Role Phone Jossie Guzman Primary Care Provider Encounter Details Date Type Department Care Team (Late st Contact Info) Description 05/07/2023 Orders Only Pharmacy, [place] [address] [place] [address] [facility] [address] [place] [address] Allergies No known active allergiesdocumented as of [...] have money to get more. Often true [place] Depression Scale Answer Date Recorded [place] Depression Scale Total 0 03/26/2023 The thought [...] 05/13/2023 1:15 PM EST Office Visit Gynecology/Obstetrics [facility] [address] [place] [address] Genesis Ivory PA-C [address] [place] [address] 05/19/2023 10:00 AM EST Pharmacy Pharmacy, [place] [address] [place] [facility] [place] [address] Clinic, [facility] [address] [place] [facility] [place] [address] Health Maintenance Due Date Last Done Comments [...] this encounter Medical Devices Implanted Type Area Knurling Machine Operator Device Identifier Shelf Expiration Date Model / Serial / Lot Sheet 38x50x.85mm 7210 X6 - [id number] Implanted:Qty: 1 on 05/27/2017 by Bubba Gates DO at [place] [facility] [place] Left: Eye [employer] 01/07/2025 7210 / / [id number] documented as of this encounter Advance Directives [...] the patient have Health Care Power of Operations Plant Attendant? No Care Teams Clinic Physician Director Relationship Specialty Start Date End Date Jossie Guzman CRNP PCP - General Nurse Practitioner 03/31/17 documented as of this encounter
--- OUTSIDE RECORDS SUMMARY | 2023-06-18 08:48 | External Medical Summary | Summary of Care ---
Author Name Unknown Organization [facility] Address [address] [facility] [address] Phone [phone] Care Team Providers Care Wool Handler Name Role Phone Jossie Guzman Primary Care Provider Reason for Visit * Reason Onset Date Comments Appointment 05/06/2023 Marita Encounter Details Date Type Department Care Team (Late st Contact Info) Description 05/06/2023 Telephone Hematology/Oncology [facility] [place] [address] [place] [address] Breonna Gibson CRNP [address] [place] [address] Appointment (Marita) Allergies No known active allergiesdocumented [...] have money to get more. Often true [place] Depression Scale Answer Date Recorded [place] Depression Scale Total 0 03/26/2023 The thought [...] encounter Miscellaneous Notes * Telephone Encounter - Zachariah Ren RN - 05/07/2023 1:08 PM EST [place] signed. Scheduling- please schedule patient for 2 hour appt "Venofer 1/3" (JAN Quintana). Pt will need weekly infusions x 3. * Telephone Encounter - Zachariah Ren RN - 05/07/2023 8:55 AM EST Routed [place] to correct pool [phone]. Will await signature. * Telephone Encounter - Zachariah Ren RN - 05/06/2023 1:09 PM EST Orders received for weekly Venofer x 3. A[place] plan built and routed for signature. No auth needed. documented in this encounter Plan of Treatment Upcoming Encounters Date Type Department Care Team (Late st Contact Info) Description 05/13/2023 1:15 PM EST Office Visit Gynecology/Obstetrics [facility] [address] [facility] [place] [address] Genesis Ivory PA-C [address] [place] [address] 05/19/2023 10:00 AM EST Pharmacy Pharmacy, [place] [address] [place], [place] [id number] Clinic, [facility] [address] [place] [address] Health Maintenance Due Date Last Done Comments [...] this encounter Medical Devices Implanted Type Area Sterile Supply Technician Device Identifier Shelf Expiration Date Model / Serial / Lot Sheet 38x50x.85mm 7210 X6 - [id number] Implanted:Qty: 1 on 05/27/2017 by Bubba Gates DO at [place] [facility] [place] Left: Eye [employer] 01/07/2025 7210 / / [id number] documented as of this encounter Advance Directives [...] the patient have Health Care Power of Hearing Screener? No Care Teams Wool Handler Relationship Specialty Start Date End Date Jossie Guzman CRNP PCP - General Nurse Practitioner 03/31/17 documented as of this encounter
--- OUTSIDE RECORDS SUMMARY | 2023-06-18 08:48 | External Medical Summary | Summary of Care ---
Author Name Unknown Organization [facility] Address [address] [facility] [place] [address] Phone [phone] Care Team Providers Care Operations Processor Name Role Phone Jossie Guzman Primary Care Provider Reason for Visit * Reason Comments Treatment Encounter Details Date Type Department Care Team (Latest Contact Info) Description 05/17/2023 10:30 AM EST Hem/Onc Treatment Hematology/Oncology Treatment, [address] [address] [place], Chair [address] Hem Onc [address] [place] [address] Iron deficiency anemia, unspecified iron deficiency anemia type* Allergies No known active allergiesdocumented as of this encounter (statuses as of 05/18/2023) Medications Medication Sig Dispensed Refills Start Date [...] as of this encounter (statuses as of 05/18/2023) Active Problems Problem Noted Date Diagnosed Date [...] as of this encounter (statuses as of 05/18/2023) Resolved Problems Problem Noted Date Diagnosed Date Resolved Date Constipation 08/15/2013 03/31/2017 Abdominal pain, epigastric 12/22/2010 1 05/31/2016 documented as of this encounter (statuses as of 05/18/2023) Immunizations Name Administration Dates Next Due DTaP [...] have money to get more. Often true [place] Depression Scale Answer Date Recorded [place] Depression Scale Total 0 05/13/2023 The thought [...] Sign Reading Time Taken Comments Blood Pressure 127/79 05/17/2023 10:43 AM EST Pulse 74 05/17/2023 10:43 AM EST Temperature 36.5 C (97.7 F) 05/17/2023 10:[address] Respiratory Rate 18 05/17/2023 10:43 AM EST Oxygen Saturation 95% 05/17/2023 10:43 AM EST Inhaled Oxygen Concentration - - Weight - - Height - - Body Mass Index - - documented in this encounter Nursing Notes * Galilea Lechuga RN - 05/17/2023 11:22 AM EST Safety and Risk for Injury Patient will remain free from injury. Ensure appropriate safety devices are available. Provide and maintain safe environment. Functional status at today's visit: Fully active, able to carry on all pre-disease performance without restriction Patient was assessed for symptoms or adverse side effects during treatment. Goals: Patient here for day 1 cycle 1 Venofer. Possible barriers to meeting goals: IV pole. Stability of the patient: Moderately stable - low risk of patient condition declining or worsening Summary regarding today's goals: Met: Patient received venofer without any issues. documented in this encounter Plan of Treatment Upcoming Encounters Date Type Department Care Team (Late st Contact Info) Description 05/19/2023 10:00 AM EST Pharmacy Pharmacy, [place] [address] [place] [address] Clinic, [facility] [address] [place] [address] 05/24/2023 10:30 AM EST Hem/Onc Treatment Hematology/Oncology Treatment, [address] [address] Maura, Chair [address] Hem [address] [address] 05/31/2023 10:30 AM EST Hem/Onc Treatment Hematology/Oncology [address], [address] [address] Maura, Chair 11 Hem Onc [facility] [address] [place], [place] [address] [address] Health Maintenance Due Date Last Done Comments [...] this encounter Medical Devices Implanted Type Area Motor Equipment Captain Device Identifier Shelf Expiration Date Model / Serial / Lot Sheet 38x50x.85mm 7210 X6 - [id number] Implanted:Qty: 1 on 05/27/2017 by Bubba Gates DO at OR [facility] [place] Left: Eye [employer] 01/07/2025 7210 / / [id number] documented as of this encounter Visit Diagnoses Diagnosis Iron deficiency anemia, unspecified iron deficiency anemia type- Primary documented in this encounter Administered Medications Inactive Administered Medications - up to 3 most recent administrations Medication Order MAR Action Action Date Dose Rate Site Iron Sucrose (Venofer) 300 mg in NSS 250 mL ivpb 300 mg, IV Piggyback, ONCE, 1 dose, On Wed05/17/23 at 1215, Administer over 90 Minutes Start Infusion 05/17/2023 10:55 AM EST 300 mg 166.67 mL/hr NSS infusion 500 mL, Intravenous, at 50 mL/hr, CONTINUOUS, Starting on Wed05/17/23 at 1145, Until Wed05/17/23 at 1727 Start Infusion 05/17/2023 10:55 AM EST 500 mL 50 mL/hr documented in this encounter Advance Directives [...] the patient have Health Care Power of Mds Manager? No Care Teams Operations Processor Relationship Specialty Start Date End Date Jossie Guzman CRNP PCP - General Nurse Practitioner 03/31/17 documented as of this encounter
--- OUTSIDE RECORDS SUMMARY | 2023-06-18 08:48 | External Medical Summary | Summary of Care ---
Author Name Unknown Organization [facility] Address [address] [facility] [place] [address] Phone [phone] Care Team Providers Care Wilderness Guide Name Role Phone Jossie Guzman Primary Care Provider Encounter Details Date Type Department Care Team (Late st Contact Info) Description 05/06/2023 Orders Only Gynecology/Obstetrics [facility] [address] [place] [address] Breonna Gibson CRNP [address] [place] [address] Iron deficiency anemia, unspecified iron deficiency anemia [...] have money to get more. Often true [place] Depression Scale Answer Date Recorded [place] Depression Scale Total 0 03/26/2023 The thought [...] 05/13/2023 1:15 PM EST [facility] [address] [place] [address] Genesis Ivory PA-C [address] [place] [address] 05/19/2023 10:00 AM EST Pharmacy Pharmacy, [place] [address] [phone] Clinic, [facility] [address] [place] [address] Health Maintenance Due Date Last Done Comments [...] this encounter Medical Devices Implanted Type Area Regulatory Affairs Intern Device Identifier Shelf Expiration Date Model / Serial / Lot Sheet 38x50x.85mm 7210 X6 - [id number] Implanted:Qty: 1 on 05/27/2017 [place] Bubba Gates DO [place] [facility] [place] Eye [employer] 01/07/2025 7210 / / [id number] documented as of this encounter Visit Diagnoses Diagnosis Iron deficiency anemia, unspecified iron deficiency anemia type- Primary documented in this encounter Advance Directives Latest [...] the patient have Health Care Power of Scooper? No Care Teams Wilderness Guide Relationship Specialty Start Date End Date Jossie Guzman CRNP PCP - General Nurse Practitioner 03/31/17 documented as of this encounter
--- OUTSIDE RECORDS SUMMARY | 2023-06-18 08:48 | External Medical Summary | Summary of Care ---
Author Name Unknown Organization [facility] Address [address] [facility] [address] Phone [phone] Care Team Providers Care Supervisor Type Disk Quality Control Name Role Phone Jossie Guzman Primary Care Provider Encounter Details Date Type Department Care Team (Late st Contact Info) Description 05/06/2023 Orders Only Hematology/Oncology [facility] [address] [place] [address] Breonna Gibson CRNP [address] [place] [address] Allergies No known active allergiesdocumented as of this encounter (statuses as of 05/14/2023) Medications Medication Sig Dispensed Refills Start Date [...] as of this encounter (statuses as of 05/14/2023) Active Problems Problem Noted Date Diagnosed Date [...] as of this encounter (statuses as of 05/14/2023) Resolved Problems Problem Noted Date Diagnosed Date Resolved Date Constipation 08/15/2013 03/31/2017 Abdominal pain, epigastric 12/22/2010 1 05/31/2016 documented as of this encounter (statuses as of 05/14/2023) Immunizations Name Administration Dates Next Due DTaP [...] have money to get more. Often true [place] Depression Scale Answer Date Recorded [place] Depression Scale Total 0 03/26/2023 The thought [...] Care Team (Late st Contact Info) Description 05/17/2023 10:30 AM EST Hem/Onc Treatment Hematology/Oncology Treatment, [place] [address] [place] [address] Maura, Chair 11 Hem Onc [address] [place] [address] 05/19/2023 10:00 AM EST Pharmacy Pharmacy, [place] [address] [place], [place] [id number] Clinic, [facility] [address] [place], [place] [phone] Health Maintenance Due Date Last Done Comments [...] this encounter Medical Devices Implanted Type Area Delivery Specialist Device Identifier Shelf Expiration Date Model / Serial / Lot Sheet 38x50x.85mm 7210 X6 - [id number] Implanted:Qty: 1 on 05/27/2017 by Bubba Gates DO at [facility] Left: Eye [employer] 01/07/2025 7210 / / [id number] documented as of this encounter Advance Directives [...] the patient have Health Care Power of Freight Brakeman? No Care Teams Supervisor Type Disk Quality Control Relationship Specialty Start Date End Date Jossie Guzman CRNP PCP - General Nurse Practitioner 03/31/17 documented as of this encounter
--- OUTSIDE RECORDS SUMMARY | 2023-06-18 08:48 | External Medical Summary | Summary of Care ---
Author Name Unknown Organization [facility] Address [address] [facility] [address] Phone [phone] Care Team Providers Care Program Management Manager Name Role Phone Jossie Guzman Primary Care Provider Reason for Visit * Reason Onset Date Comments Appointment 05/06/2023 Marita Encounter Details Date Type Department Care Team (Late st Contact Info) Description 05/06/2023 Telephone Hematology/Oncology [facility] [place] [address] [place] [address] Breonna Gibson CRNP [address] [place] [address] Appointment (Marita) Allergies No known active allergiesdocumented as of this encounter (statuses as of 05/11/2023) Medications Medication Sig Dispensed Refills Start Date [...] as of this encounter (statuses as of 05/11/2023) Active Problems Problem Noted Date Diagnosed Date [...] as of this encounter (statuses as of 05/11/2023) Resolved Problems Problem Noted Date Diagnosed Date Resolved Date Constipation 08/15/2013 03/31/2017 Abdominal pain, epigastric 12/22/2010 1 05/31/2016 documented as of this encounter (statuses as of 05/11/2023) Immunizations Name Administration Dates Next Due DTaP [...] have money to get more. Often true [place] Depression Scale Answer Date Recorded [place] Depression Scale Total 0 03/26/2023 The thought [...] Telephone Encounter - Juanita James OSA - 05/11/2023 11:07 AM EST Attempted X2 message stated unable to complete call at this time. * Telephone Encounter - Juanita James OSA - 05/07/2023 1:37 PM EST Attempted to contact patient and the message stated that call could not be completed at this time to call back. * Telephone Encounter - Zachariah Ren RN - 05/07/2023 1:08 PM EST [place] signed. Scheduling- please schedule patient for 2 hour appt "Venofer 05/12" (JAN Quintana). Pt will need weekly infusions x 3. * Telephone Encounter - Zachariah Ren RN - 05/07/2023 8:55 AM EST Routed [place] to correct pool [phone]. Will await signature. * Telephone Encounter - Zachariah Ren RN - 05/06/2023 1:09 PM EST Orders received for weekly Venofer x 3. [place] plan built and routed for signature. No auth needed. documented in this encounter Plan of Treatment Upcoming Encounters Date Type Department Care Team (Late st Contact Info) Description 05/13/2023 1:15 PM EST Office Visit Gynecology/Obstetrics [facility] [address] [place] [address] Genesis Ivory PA-C [address] [place] [address] 05/19/2023 10:00 AM EST Pharmacy Pharmacy, [address] [place] [address] Clinic, [place] [address] [place] [address] Health Maintenance Due Date Last Done Comments [...] this encounter Medical Devices Implanted Type Area Batch Blender Device Identifier Shelf Expiration Date Model / Serial / Lot Sheet 38x50x.85mm 7210 X6 - [id number] Implanted:Qty: 1 on 05/27/2017 [place] Bubba Gates DO [place] [facility] [place] Eye [employer] 01/07/2025 7210 / / [id number] documented as of this encounter Advance Directives [...] the patient have Health Care Power of Documentation Engineer? No Care Teams Program Management Manager Relationship Specialty Start Date End Date Jossie Guzman CRNP PCP - General Nurse Practitioner 03/31/17 documented as of this encounter
--- OUTSIDE RECORDS SUMMARY | 2023-06-18 08:48 | External Medical Summary | Summary of Care ---
Author Name Unknown Organization [facility] Address [address] [place] [address] Phone [phone] Care Team Providers Care Security Threat Analyst Name Role Phone Matthew Guzmanelle Vani MONTOYA Primary Care Provider Reason for Referral * Evaluate & Treat - Unlimited Visits (Within 10 days (routine)) - Authorized Specialty Diagnoses / Procedures Referred By Sandra ch Referred To Contact Pharmacist / Pharmacy Diagnoses RICKY (iron deficiency anemia) Breonna Gibson CRNP [address] [place] [address] Referral ID Status Reason Start Date Expiration Date Visits Requested Visits Authorized [id number] Authorized Specialty Services Required 3 99 99 Question Answer Referral Priority Within 10 days (routine) Where should this appointment be scheduled? [facility] Referring Provider Role: Specialist Specialty: server software engineer Reason for Referral: Anemia Comments Pharmacist Medication Therapy Management: Iron deficiency anemia Gilbert Padron RN Reason for Visit * Reason Onset Date Comments Blood Management Program 04/28/2023 Encounter Details Date Type Department Care Team (Late st Contact Info) Description 04/28/2023 Telephone Patient Blood Management, [place] [address] [place] [address] Breonna Gibson CRNP [address] [place] [address] Blood Management Program Allergies No known active allergiesdocumented as of [...] 01/14/2023 nutrition Due date letter given for [facility] 01/14/2023 Lisa Lorenzo RN 01/14/2023 Problem Action [...] have money to get more. Often true [place] Depression Scale Answer Date Recorded [place] Depression Scale Total 0 03/26/2023 The thought [...] encounter Miscellaneous Notes * Telephone Encounter - Gilbert Padron RN - 04/28/2023 8:53 AM EST Recommend IV iron per OB MTM protocol. Patient agreeable, prefers infusion at [facility]. documented in this encounter Plan of Treatment Upcoming Encounters Date Type Department Care Team (Late st Contact Info) Description 05/13/2023 1:15 PM EST Office Visit Gynecology/Obstetrics [facility] [address] [facility] [place] [address] Genesis Ivory PA-C [address] [place] [address] 05/19/2023 10:00 AM EST [facility] [address] [place], [place] [id number] Clinic, An[place] [address] [place] [address] Scheduled Referrals Name Type Priority Associated Diagnoses [...] this encounter Medical Devices Implanted Type Area Design Engineering Manager Device Identifier Shelf Expiration Date Model / Serial / Lot Sheet 38x50x.85mm 7210 X6 - [id number] Implanted:Qty: 1 on 05/27/2017 by Bubba Gates, at [place] [facility] [place] Left: Eye [employer] 01/07/2025 7210 / / [id number] documented as of this encounter Visit Diagnoses Diagnosis RICKY (iron deficiency anemia)- Primary Iron deficiency anemia, unspecified documented in this encounter Advance Directives Latest [...] the patient have Health Care Power of Supervisor Soldering? No Care Teams Security Threat Analyst Relationship Specialty Start Date End Date Jossie Guzman CRNP PCP - General Nurse Practitioner 03/31/17 documented as of this encounter
--- OUTSIDE RECORDS SUMMARY | 2023-06-18 08:48 | External Medical Summary | Summary of Care ---
Author Name Unknown Organization [facility] Address [address] [facility] [address] Phone [phone] Care Team Providers Care Consulting Manager Name Role Phone Jossie Guzman Primary Care Provider Reason for Visit * Reason Onset Date Comments Appointment 05/06/2023 Marita Encounter Details Date Type Department Care Team (Late st Contact Info) Description 05/06/2023 Telephone Hematology/Oncology [facility] [place] [address] [place] [address] Breonna Gibson CRNP [address] [place] [address] Appointment (Marita) Allergies No known active allergiesdocumented [...] have money to get more. Often true [place] Depression Scale Answer Date Recorded [place] Depression Scale Total 0 03/26/2023 The thought [...] RN - 05/07/2023 8:55 AM EST Routed [place] to correct pool [id number]. Will await signature. * Telephone Encounter - Zachariah Ren RN - 05/06/2023 1:09 PM EST Orders received for weekly Venofer x 3. [place] plan built and routed for signature. No auth needed. documented in this encounter Plan of Treatment Upcoming Encounters Date Type Department Care Team (Late st Contact Info) Description 05/13/2023 1:15 PM EST [facility] [address] [place] [address] Genesis Ivory PA-C [address] [place] [address] 05/19/2023 10:00 AM EST Pharmacy Pharmacy, [place] [address] [place] [address] Clinic, [facility] [address] [place] [address] Health Maintenance Due Date Last Done Comments [...] this encounter Medical Devices Implanted Type Area Certified Medical Transcriptionist Device Identifier Shelf Expiration Date Model / Serial / Lot Sheet 38x50x.85mm 7210 X6 - [id number] Implanted:Qty: 1 on 05/27/2017 by Bubba Gates DO at OR [facility] [place] Left: Eye [employer] 01/07/2025 7210 / / [id number] documented as of this encounter Advance Directives [...] the patient have Health Care Power of It Application Administrator? No Care Teams Consulting Manager Relationship Specialty Start Date End Date Jossie Guzman CRNP PCP - General Nurse Practitioner 03/31/17 documented as of this encounter
--- OUTSIDE RECORDS SUMMARY | 2023-06-18 08:48 | External Medical Summary | Summary of Care ---
Author Name Unknown Organization [facility] Address [address] [place] [address] Phone [phone] Care Team Providers Care Litigation Coordinator Name Role Phone Jossie Guzman Primary Care Provider Reason for Visit * Reason Onset Date Comments Anemia Follow-Up 05/06/2023 * Evaluate & Treat - Unlimited Visits (Within 10 days (routine)) - Authorized Specialty Diagnoses / Procedures Referred By Contac t Referred To Contact Pharmacist / Pharmacy Diagnoses RICKY (iron deficiency anemia) Breonna Gibson CRNP [address] [place] [address] Referral ID Status Reason Start Date Expiration Date Visits Requested Visits Authorized [id number] Authorized Specialty Services Required 3 99 99 Encounter Details Date Type Department Care Team (Late st Contact Info) Description 05/04/2023 4:[address] [facility] Pharmacy Pharmacy, [place] [address], [place] [id number] Clinic, Anemia [address] [place], [place] [phone] Antepartum anemia complicating * Allergies No known [...] Date resolved First Support noted 01/14/2023 Lisa Lroenzo RN 01/14/2023 Poor dental hygiene Encouraged dental [...] have money to get more. Often true Tyler Depression Scale Answer Date Recorded Tyler Depression Scale Total 0 03/26/2023 The thought [...] this encounter Progress Notes * Keren Ralph RP - 05/06/2023 10:35 AM EST Patient Phone Numbers Patient referred by JAN Quintana, for evaluation of anemia by the Anemia Clinic. Called patient to introduce role/clinic and to review labs from 04/27/23. No answer, left message to return call to clinic at earliest convenience. Hgb: 8.5 g/dL TSAT: 2 % Ferritin: 5 ng/mL GA: 34w2d Estimated Date of Delivery: 06/15/23 Hgb is below target range for the 3rd trimester. Iron studies below target range. Per chart review, patient is taking ferrous sulfate 325 mg PO BID. Patient qualifies for IV iron repletion. Tentative Plan: Venofer 300 mg IV weekly x 3 doses at [facility]. Orders will need to be placed and routed to appropriate parties if patient agreeable to intervention. Follow-up labs to be scheduled ~4-6 weeks after iron repletion completed if appropriate prior to delivery. Will follow-up in ~1 week if no return call sooner. Anemia Clinic will continue to follow. Thank you for allowing us to participate in the care of thispatient. Keren Ralph, PharmD, [facility] Clinical Pharmacist [facility] (P: [phone]) 05/06/2023 10:35 AM documented in this encounter Plan of Treatment Upcoming Encounters Date Type Department Care Team (Late st Contact Info) Description 05/13/2023 1:15 PM EST Office Visit Gynecology/Obstetrics [facility] [address] [facility] [place] [address] Genesis Ivory PA-C [address] [place] [address] 05/13/2023 4:00 PM EST Pharmacy Pharmacy, [place] [address] [place] [address] Clinic, An[place] [address] [place] [address] Scheduled Referrals Name Type Priority Associated Diagnoses [...] this encounter Medical Devices Implanted Type Area Supervisor Fabrication Department Device Identifier Shelf Expiration Date Model / Serial / Lot Sheet 38x50x.85mm 7210 X6 - [id number] Implanted:Qty: 1 on 05/27/2017 by Bubba Gates DO [place] [facility] [place] Eye [employer] 01/07/2025 7210 / / [id number] documented as of this encounter Visit Diagnoses [...] the patient have Health Care Power of Mosaic Technician? No Care Teams Litigation Coordinator Relationship Specialty Start Date End Date Jossie Guzman CRNP PCP - General Nurse Practitioner 03/31/17 documented as of this encounter
--- OUTSIDE RECORDS SUMMARY | 2023-06-18 08:48 | External Medical Summary | Summary of Care ---
Author Name Unknown Organization [facility] Address [address] [facility] [address] Phone [phone] Care Team Providers Care Financial Sales Professional Name Role Phone Jossie Guzman Primary Care Provider Reason for Visit * Reason Onset Date Comments Appointment 05/06/2023 Marita Encounter Details Date Type Department Care Team (Late st Contact Info) Description 05/06/2023 Telephone Hematology/Oncology [facility] [place] [address] [place] [address] Breonna Gibson CRNP [address] [place] [address] Appointment (Marita) Allergies No known active allergiesdocumented [...] have money to get more. Often true [place] Depression Scale Answer Date Recorded [place] Depression Scale Total 0 03/26/2023 The thought [...] Orders received for weekly Venofer x 3. [place] plan built and routed for signature. No auth needed. documented in this encounter Plan of Treatment Upcoming Encounters Date Type Department Care Team (Late st Contact Info) Description 05/13/2023 1:15 PM EST Office Visit Gynecology/Obstetrics [place] [address] [place] [address] Genesis Ivory PA-C [address] [place] [address] 05/19/2023 10:00 AM EST Pharmacy Pharmacy, [place] [address] [place] [address] Clinic, [facility] [address] [place] [address] Health Maintenance Due Date Last Done Comments [...] this encounter Medical Devices Implanted Type Area Street Flusher Driver Device Identifier Shelf Expiration Date Model / Serial / Lot Sheet 38x50x.85mm 7210 X6 - [id number] Implanted:Qty: 1 on 05/27/2017 by Bubba Gates DO at [place] [facility] [place] Left: Eye [employer] 01/07/2025 7210 / / [id number] documented as of this encounter Advance Directives [...] the patient have Health Care Power of Editing Intern? No Care Teams Financial Sales Professional Relationship Specialty Start Date End Date Jossie Guzman CRNP PCP - General Nurse Practitioner 03/31/17 documented as of this encounter
--- OUTSIDE RECORDS SUMMARY | 2023-06-18 08:48 | External Medical Summary | Summary of Care ---
Author Name Unknown Organization [facility] Address [address] [facility] [place] [address] Phone [phone] Care Team Providers Care Adjunct Professor Of Voice Name Role Phone Jossie Guzman Primary Care Provider Reason for Visit * Reason Comments Return Visit Encounter Details Date Type Department Care Team (Late st Contact Info) Description 05/13/2023 1:15 PM EST Office Visit Gynecology/Obstetric s [facility] Kauf[place] [address] [place] [address] Genesis Ivory PA-C [address] [place] [address] Supervision of normal first , antepartum*; Health counseling; Antepartum anemia complicating ; Need for zcoyziubmn-iwrpvqw-uq rtussis (Tdap) vaccine Allergies No known active allergiesdocumented as of this encounter (statuses as of 05/13/2023) Medications Medication Sig Dispensed Refills Start Date [...] as of this encounter (statuses as of 05/13/2023) Active Problems Problem Noted Date Diagnosed Date [...] as of this encounter (statuses as of 05/13/2023) Resolved Problems Problem Noted Date Diagnosed Date Resolved Date Constipation 08/15/2013 03/31/2017 Abdominal pain, epigastric 12/22/2010 1 05/31/2016 documented as of this encounter (statuses as of 05/13/2023) Immunizations Name Administration Dates Next Due DTaP [...] have money to get more. Often true [place] Depression Scale Answer Date Recorded [place] Depression Scale Total 0 05/13/2023 The thought [...] Sign Reading Time Taken Comments Blood Pressure 104/66 05/13/2023 1:20 PM EST Pulse - - Temperature - - Respiratory Rate - - Oxygen Saturation - - Inhaled Oxygen Concentration - - Weight 61.2 kg (135 lb) 05/13/2023 1:20 PM EST Height 165.1 cm (5' 5") 05/13/2023 1:20 PM EST Body Mass Index 22.47 05/13/2023 1:20 PM EST documented in this encounter Progress Notes * Genesis Ivory PA-C - 05/13/2023 1:54 PM EST 35w2d Plans to start IV iron next week. Doing well, without complaints. Denies bleeding, leaking, contractions. Pos fm. Reviewed GBS next visit. Wants Tdap today, given. RTC in 1 week Genesis Ivory PA-C documented in this encounter Nursing Notes * Juli Jimenez LPN - 05/13/2023 1:26 PM EST 35w2d IV iron to start next Wednesday. Would like tdap. Patient here for tdap injection. Patient doing well no complaints. Injection given IM as ordered. Patient tolerated well. Patient to follow up as directed. Patient instructed to call if any complications. Patient verbalized understanding of instructions given and her follow up appt for EULALIO. Injection site: Left Deltoid Medication Source: Dispensed stock medication documented in this encounter Plan of Treatment Upcoming Encounters Date Type Department Care Team (Late st Contact Info) Description 05/17/2023 10:30 AM EST Hem/Onc Treatment Hematology/Oncology Treatment, [address] [address] Maur[place], Chair [address] [address] 05/19/2023 10:00 AM EST Pharmacy Pharmacy, [place] [address] [place] [address] Clinic, Anemia [address] [place] [address] Health Maintenance Due Date Last Done Comments [...] this encounter Medical Devices Implanted Type Area Specialty Cook Device Identifier Shelf Expiration Date Model / Serial / Lot Sheet 38x50x.85mm 7210 X6 - [id number] Implanted:Qty: 1 on 05/27/2017 by Bubba Gates DO at [place] [facility] [place] Left: Eye [employer] 01/07/2025 7210 / / [id number] documented as of this encounter Visit Diagnoses Diagnosis Supervision of normal first , antepartum- Primary Health counseling Other specified counseling Antepartum anemia complicating Anemia, antepartum Need for ldfbejvras-nwekhtn-ujhlxfmfo (Tdap) vaccine Need for prophylactic vaccination with combined lsleahtjig-pjkvmqa-fxjfcdmxr (DTP) vaccine documented in this encounter Advance Directives Latest [...] the patient have Health Care Power of Multigrapher? No Care Teams Adjunct Professor Of Voice Relationship Specialty Start Date End Date Jossie Guzman CRNP PCP - General Nurse Practitioner 03/31/17 documented as of this encounter
--- OUTSIDE RECORDS SUMMARY | 2023-06-18 08:48 | External Medical Summary | Summary of Care ---
Author Name Unknown Organization [facility] Address [address] [facility] [address] Phone [phone] Care Team Providers Care Travertine Installer Name Role Phone Jossie Guzman Primary Care Provider Reason for Visit * Reason Onset Date Comments Appointment 05/06/2023 Marita Encounter Details Date Type Department Care Team (Late st Contact Info) Description 05/06/2023 Telephone Hematology/Oncology [facility] [place] [address] [place] [address] Breonna Gibson CRNP [address] [place] [address] Appointment (Marita) Allergies No known active allergiesdocumented [...] supplies Breast pump order sent 03/26/2023 Tracy bAad RN 03/26/2023 Supervision of normal first , [...] have money to get more. Often true Armstrong Depression Scale Answer Date Recorded Armstrong Depression Scale Total 0 03/26/2023 The thought [...] Telephone Encounter - Juanita James OSA - 05/13/2023 10:06 AM EST Called X3 and spoke to her she is scheduled for venofer for 05/17/23. * Telephone Encounter - Juanita James OSA [...] Ren RN - 05/07/2023 1:08 PM EST [place] signed. Scheduling- please schedule patient for 2 hour appt "Venofer 05/12" (JAN Quintana). Pt will need weekly infusions x 3. * Telephone Encounter - Zachariah Ren RN - 05/07/2023 8:55 AM EST Routed [place] to correct pool [phone]. Will await signature. * Telephone Encounter - Zachariah Ren RN - 05/06/2023 1:09 PM EST Orders received for weekly Venofer x 3. [place] plan built and routed for signature. No auth needed. documented in this encounter Plan of Treatment Upcoming Encounters Date Type Department Care Team (Late st Contact Info) Description 05/13/2023 1:15 PM EST Office Visit Gynecology/Obstetrics [address] [place] [address] Genesis Ivory PA-C [address] [place] [address] 05/17/2023 10:30 AM EST Hem/Onc Treatment Hematology/Oncology Treatment, [place] [address] [place] [address] Maura, Chair 11 Hem Onc [address] [place] [address] 05/19/2023 10:00 AM EST Pharmacy Pharmacy, [place] [address] [place] [address] Clinic, [facility] [address] [place], [place] [address] Health Maintenance Due Date Last Done Comments [...] this encounter Medical Devices Implanted Type Area Disk Sander Device Identifier Shelf Expiration Date Model / Serial / Lot Sheet 38x50x.85mm 7210 X6 - [id number] Implanted:Qty: 1 on 05/27/2017 by Bubba Gates DO at OR [facility] [place] Left: Eye [employer] 01/07/2025 7210 / / [id number] documented as of this encounter Advance Directives [...] the patient have Health Care Power of Manager Of Marketing? No Care Teams Travertine Installer Relationship Specialty Start Date End Date Jossie Guzman CRNP PCP - General Nurse Practitioner 03/31/17 documented as of this encounter
--- OUTSIDE RECORDS SUMMARY | 2023-06-18 08:48 | External Medical Summary | Summary of Care ---
Author Name Unknown Organization [facility] Address [address] [place] [place] [address] Phone [phone] Care Team Providers Care Bail Attacher Name Role Phone Jossie Guzman Primary Care Provider Reason for Visit * Reason Comments Treatment Encounter Details Date Type Department Care Team (Latest Contact Info) Description 05/17/2023 10:30 AM EST Hem/Onc Treatment Hematology/Oncology Treatment, [address] [address] Maura, Chair 11 Hem Onc [address] [place] [address] Iron deficiency anemia, unspecified iron deficiency anemia type* Allergies No known active allergiesdocumented as of this encounter (statuses as of 05/17/2023) Medications Medication Sig Dispensed Refills Start Date [...] as of this encounter (statuses as of 05/17/2023) Active Problems Problem Noted Date Diagnosed Date [...] as of this encounter (statuses as of 05/17/2023) Resolved Problems Problem Noted Date Diagnosed Date Resolved Date Constipation 08/15/2013 03/31/2017 Abdominal pain, epigastric 12/22/2010 1 05/31/2016 documented as of this encounter (statuses as of 05/17/2023) Immunizations Name Administration Dates Next Due DTaP [...] have money to get more. Often true [place] Depression Scale Answer Date Recorded [place] Depression Scale Total 0 05/13/2023 The thought [...] Description 05/19/2023 10:00 AM EST Pharmacy Pharmacy, [place] [address] [place] [address] Clinic, [place] [address] [place] [address] 05/24/2023 10:30 AM EST Hem/Onc Treatment Hematology/Oncology Treatment, [address] [place] [address] Maura, Chair [address] Hem On[address] [place] [address] 05/31/2023 10:30 AM EST Hem/Onc Treatment Hematology/Oncology Treatment, [address] [place] [address] Maura, Chair 11 Hem [facility]c [facility] [address] [place] [address], [place] [address] Health Maintenance Due Date Last Done Comments [...] this encounter Medical Devices Implanted Type Area Quality Assurance Representative Device Identifier Shelf Expiration Date Model / Serial / Lot Sheet 38x50x.85mm 7210 X6 - [id number] Implanted:Qty: 1 on 05/27/2017 by Bubba Gates DO [place] [facility] [place] Eye [employer] 01/07/2025 7210 / / [id number] documented as of this encounter Visit Diagnoses Diagnosis Iron deficiency anemia, unspecified iron deficiency anemia type- Primary documented in this encounter Administered Medications Active Administered Medications - up to 3 most recent administrations Medication Order MAR Action Action Date Dose Rate Site diphenhydrAMINE (Benadryl) inj 50 mg 50 mg, IV Push, ONCE PRN Other, Hypersensitivity Reaction, Starting on Wed05/17/23 at 1044, Until Wed05/18/23 at 1043, For 24 hours EPINEPHrine 1 MG/ML inj 0.3 mg 0.3 mg, Intramuscular, ONCE PRN Other, Hypersensitivity Reaction or Anaphylaxis, Starting on Wed05/17/23 at 1044, Until Wed05/18/23 at 1043, For 24 hours Hydrocortisone Sod Suc (PF) (Solu-Cortef) inj 100 mg 100 mg, IV Push, ONCE PRN Other, Hypersensitivity Reaction, Starting on Wed05/17/23 at 1044, Until Wed05/18/23 at 1043, For 24 hours NSS infusion 500 mL, Intravenous, at 50 mL/hr, CONTINUOUS, Starting on Wed05/17/23 at 1145, Until Wed05/17/23 at 2144 Start Infusion 05/17/2023 10:55 AM EST 500 mL 50 mL/hr oxygen GAS Inhalation, OXYGEN, First dose on Wed05/17/23 at 1115, Until Discontinued, Device/Managed by: Low [...] is greater than or equal to 93% Inactive Administered Medications - up to 3 most recent administrations Medication Order MAR Action Action Date Dose Rate Site Iron Sucrose (Venofer) 300 mg in NSS 250 mL ivpb 300 mg, IV Piggyback, ONCE, 1 dose, On Wed05/17/23 at 1215, Administer over 90 Minutes Start Infusion 05/17/2023 10:55 AM EST 300 mg 166.67 mL/hr documented [...] the patient have Health Care Power of House Father? No Care Teams Bail Attacher Relationship Specialty Start Date End Date Jossie Guzman CRNP PCP - General Nurse Practitioner 03/31/17 documented as of this encounter
--- OUTSIDE RECORDS SUMMARY | 2023-06-18 08:49 | External Medical Summary ---
Author Name Unknown Address Unknown Organization K01:[facility] [place] [address] [place] [address] Laboratory Report Ordering Provider Test Date Status CATIE MACHADO 04/27/2023 13:53:11 Final Observation Date Value Abnormality Reference (Units ) Status Creatinine 04/27/2023 13:53:11 0.5 0.5-1.0 (mg/dL) Final Glomerular filtration rate/1.73 sq M.predicted [Volume Rate/Area] in Serum, Plasma or Blood by Creatinine-based formula (CKD-EPI) 04/27/2023 13:53:11 >90 >=60 (mL/min) Final eGFR is calculated based on the CKD-EPI 2020 equation Performing Location [facility] [place] [address] [place] [address]
--- OUTSIDE RECORDS SUMMARY | 2023-06-18 08:49 | External Medical Summary | Summary of Care ---
Author Name Unknown Organization [facility] Address [address] [place] [address] Phone [phone] Care Team Providers Care Finger Waver Name Role Phone Jossie Guzman Primary Care Provider Reason for Visit * Reason Comments Outpatient Testing Encounter Details Date Type Department Care Team (Late st Contact Info) Description 03/26/2023 10:50 AM EST Laboratory Laboratory, [facility] [address] [place] [address] [facility] [address] [place] [address] Supervision of normal first , antepartum Allergies No known active allergiesdocumented as of this encounter (statuses as of 03/26/2023) Medications Medication Sig Dispensed Refills Start Date End Date Status 28-0.8 MG Oral Tablet Take by mouth. 0 Active Ferrous Sulfate 325 (65 Fe) MG Oral Tablet (Feosol)Indications:An tepartum anemia complicating Take 1 Tablet by mouth 2 times a day. 60 Tablet 12 02/16/2023 Active Vitamin C 250 MG Oral Tablet (Ascorbic Acid)Indications:Antep artum anemia complicating Take 1 Tablet by mouth 2 times a day. 60 Tablet 3 02/16/2023 Active documented as of this encounter (statuses as of 03/26/2023) Active Problems Problem Noted Date Diagnosed Date [...] as of this encounter (statuses as of 03/26/2023) Resolved Problems Problem Noted Date Diagnosed Date Resolved Date Constipation 08/15/2013 03/31/2017 Abdominal pain, epigastric 12/22/2010 1 05/31/2016 documented as of this encounter (statuses as of 03/26/2023) Immunizations Name Administration Dates Next Due DTaP [...] have money to get more. Often true [place] Depression Scale Answer Date Recorded [place] Depression Scale Total 0 03/26/2023 The thought [...] DIFFERENTIAL AND ANEMIA REFLEX WORKUP Lab Routine Supervision of normal first , antepartum 03/26/2023 11:47 AM EST SYPHILIS ANTIBODY SCREEN WITH REFLEX TO RPR Lab Routine Supervision of normal first , antepartum 03/26/2023 11:47 AM EST 50-G GESTATIONAL GLUCOSE, 1 HOUR Lab Routine Supervision of normal first , antepartum 03/26/2023 11:47 AM EST ANEMIA CBC Lab Routine Supervision of normal first , antepartum 03/26/2023 11:47 AM EST DIFFERENTIAL, AUTOMATED Lab Routine Supervision of normal first , antepartum 03/26/2023 11:47 AM EST ANEMIA REFLEX CHEMISTRY HOLD Lab Routine Supervision of normal first , antepartum 03/26/2023 11:47 AM EST SYPHILIS ANTIBODY SCREEN Lab Routine Supervision of normal first , antepartum 03/26/2023 11:47 AM EST Health Maintenance Due Date Last [...] this encounter Medical Devices Implanted Type Area Rocket Engine Mechanic Device Identifier Shelf Expiration Date Model / Serial / Lot Sheet 38x50x.85mm 7210 X6 - [id number] Implanted:Qty: 1 on 05/27/2017 by Bubba Gates, at [place] [facility] [place] Left: Eye [employer] : [employer] 01/07/2025 7210 / / [id number] documented as of this encounter Visit Diagnoses Diagnosis Supervision of normal first , antepartum documented in this encounter Advance Directives [...] the patient have Health Care Power of Erosion Control Specialist? No Care Teams Finger Waver Relationship Specialty Start Date End Date Jossie Guzman CRNP PCP - General Nurse Practitioner 03/31/17 documented as of this encounter
--- OUTSIDE RECORDS SUMMARY | 2023-06-18 08:49 | External Medical Summary ---
Author Name Unknown Address Unknown Organization K01:[facility] [address] [facility] [address] Laboratory Report Ordering Provider Test Date Status CATIE MACHADO 04/27/2023 13:53:11 Final Observation Date Value Abnormality Reference (Units ) Status WBC, Total 04/27/2023 13:53:11 5.79 4.00-10.8 0 (K/uL) Final RBC 04/27/2023 13:53:11 3.40 3.85-5.15 (M/uL) Final Hemoglobin 04/27/2023 13:53:11 8.5 Below low normal 12 .0-15.3 (g/dL) Final Anemia reflex testing trigge rs on a HGB < 12.0 for Females and HGB < 13.0 for Males in accordance with the WHO Anemia Guidelines
Anemia reflex testing triggers on a HGB < 12.0 for Females and HGB < 13.0 for Males in accordance with the WHO Anemia Guidelines HCT 04/27/2023 13:53:11 30.2 Below low normal 36. 0-45.2 (%) Final MCV 04/27/2023 13:53:11 88.8 81.5-97.5 (fL) Final MCH 04/27/2023 13:53:11 25.0 27.0-34.0 (pg) Final MCHC 04/27/2023 13:53:11 28.1 32.0-36.0 (g/dL) Final RDW 04/27/2023 13:53:11 15.0 11.5-15.5 (%) Final Platelets 04/27/2023 13:53:11 242 140-400 (K /uL) Final MPV 04/27/2023 13:53:11 11.2 6.6-11.1 ( fL) Final Nucleated erythrocytes/100 leukocytes [Ratio] in Blood by Automated count 04/27/2023 13:53:11 0 <=0 (/100 WBCs) Final Performing Location LAB[facility]ORY [facility] [place] [facility] [address] [facility] [address]
--- OUTSIDE RECORDS SUMMARY | 2023-06-18 08:49 | External Medical Summary | Summary of Care ---
Author Name Unknown Organization [facility] Address [address] [place] [address] Phone [phone] Care Team Providers Care Dispatcher Radioactive Waste Disposal Name Role Phone Jossie Guzman Primary Care Provider Reason for Visit * Reason Comments Outpatient Testing Encounter Details Date Type Department Care Team (Late st Contact Info) Description 04/27/2023 2:10 PM EST Laboratory Laboratory, [facility] [address] [place] [phone] [facility] [address] [place] [address] Antepartum anemia complicating Allergies No known active allergiesdocumented as of this encounter (statuses as of 04/27/2023) Medications Medication Sig Dispensed Refills Start Date [...] as of this encounter (statuses as of 04/27/2023) Active Problems Problem Noted Date Diagnosed Date [...] as of this encounter (statuses as of 04/27/2023) Resolved Problems Problem Noted Date Diagnosed Date Resolved Date Constipation 08/15/2013 03/31/2017 Abdominal pain, epigastric 12/22/2010 1 05/31/2016 documented as of this encounter (statuses as of 04/27/2023) Immunizations Name Administration Dates Next Due DTaP [...] have money to get more. Often true [place] Depression Scale Answer Date Recorded [place] Depression Scale Total 0 03/26/2023 The thought [...] Gynecology/Obstetrics [facility] [address] [place] [address] Genesis Ivory PA-C [address] [place] [address] Pending Results Name Type Priority Associated Diagnoses Date /Time CBC WITH WBC DIFFERENTIAL AND ANEMIA REFLEX WORKUP Lab Routine Antepartum anemia complicating 04/27/2023 1:53 PM EST ANEMIA CBC Lab Routine Antepartum anemia complicating 04/27/2023 1:53 PM EST DIFFERENTIAL, AUTOMATED Lab Routine Antepartum anemia complicating 04/27/2023 1:53 PM EST ANEMIA REFLEX CHEMISTRY HOLD Lab Routine Antepartum anemia complicating 04/27/2023 1:53 PM EST Health Maintenance Due Date Last Done [...] this encounter Medical Devices Implanted Type Area Edge Cutting Machine Operator Device Identifier Shelf Expiration Date Model / Serial / Lot Sheet 38x50x.85mm 7210 X6 - [id number] Implanted:Qty: 1 on 05/27/2017 by Bubba Gates DO at OR [facility] [place] Left: Eye [employer] : [employer] 01/07/2025 7210 / / [id number] documented as of this encounter Visit Diagnoses [...] the patient have Health Care Power of Multi Skilled Operator? No Care Teams Dispatcher Radioactive Waste Disposal Relationship Specialty Start Date End Date Jossie Guzman CRNP PCP - General Nurse Practitioner 03/31/17 documented as of this encounter
--- OUTSIDE RECORDS SUMMARY | 2023-06-18 08:49 | External Medical Summary ---
Author Name Unknown Address Unknown Organization K01:[facility] - [address] [place] [address] Laboratory Report Ordering Provider Test Date Status CATIE MACHADO 04/27/2023 13:53:11 Final Observation Date Value Abnormality Reference (Units ) Status Ferritin 04/27/2023 13:53:11 5 Below low normal 13- 150 (ng/mL) Final Performing Location [facility] - [address] [place] [address]
--- OUTSIDE RECORDS SUMMARY | 2023-06-18 08:49 | External Medical Summary | Summary of Care ---
Author Name Unknown Organization [facility] Address [address] [facility] [place] [address] Phone [phone] Care Team Providers Care Neon Pumper Name Role Phone Jossie Guzman Primary Care Provider Encounter Details Date Type Department Care Team (Late st Contact Info) Description 04/16/2023 Telephone Gynecology/Obstetrics [facility] [address] [place] [address] Breonna Gibson CRNP [address] [place] [address] Allergies No known active allergiesdocumented as of [...] have money to get more. Often true [place] Depression Scale Answer Date Recorded [place] Depression Scale Total 0 03/26/2023 The thought [...] 1:15 PM EST Office Visit Gynecology/Obstetrics [facility] [address] [place] [address] Genesis Ivory PA-C [address] [place] [address] Health Maintenance Due Date Last Done Comments [...] this encounter Medical Devices Implanted Type Area Account Management Assistant Device Identifier Shelf Expiration Date Model / Serial / Lot Sheet 38x50x.85mm 7210 X6 - [id number] Implanted:Qty: 1 on 05/27/2017 by Bubba Gates DO at [place] [facility] [place] Left: Eye [employer] 01/07/2025 7210 / / [id number] documented as of this encounter Advance Directives [...] the patient have Health Care Power of Associate Project Manager? No Care Teams Neon Pumper Relationship Specialty Start Date End Date Jossie Guzman CRNP PCP - General Nurse Practitioner 03/31/17 documented as of this encounter
--- OUTSIDE RECORDS SUMMARY | 2023-06-18 08:49 | External Medical Summary ---
Author Name Unknown Address Unknown Organization K01:[facility] - [address] [facility] [place] [address] Laboratory Report Ordering Provider Test Date Status CATIE MACHADO 04/27/2023 13:53:11 Final Observation Date Value Abnormality Reference (Units ) Status SYNC LEUKOCYTES IN BLOOD BY AUTOMATED COUNT 04/27/2023 13:53:11 5.79 4.00-10.80 (K/uL) Final Segs 04/27/2023 13:53:11 57.5 40.0-75.0 (%) Final Lymphs % 04/27/2023 13:53:11 22.1 18.0-42.0 (%) Final Monos 04/27/2023 13:53:11 14.9 Above high normal 1.0-11.0 (%) Final Eosinophils 04/27/2023 13:53:11 4.3 0.0-6.0 (%) Final Basos 04/27/2023 13:53:11 0.7 0.0-2.0 (%) Final Immature Granulocyte, Percent 04/27/2023 13:53:11 0.5 0.0-2.0 (%) Final Absolute Segs 04/27/2023 13:53:11 3.33 1.80-7.70 (K/uL) Final Lymphs, absolute 04/27/2023 13:53:11 1.28 1.00-4.80 (K/ul) Final Monos, Abs 04/27/2023 13:53:11 0.86 0.00-1.10 (K/uL) Final Eos, Abs 04/27/2023 13:53:11 0.25 0.00-0.70 (K/uL) Final Basos, Abs 04/27/2023 13:53:11 0.04 0.00-0.20 (K/uL) Final Immature Granulocytes, Number 04/27/2023 13:53:11 0.03 0.00-0.20 (K/uL) Final Performing Location LABORATORY [facility] [place] - [address] [facility] [address]
--- OUTSIDE RECORDS SUMMARY | 2023-06-18 08:49 | External Medical Summary | Summary of Care ---
Author Name Unknown Organization [facility] Address [address] [facility] [address] Phone [phone] Care Team Providers Care Data Report Analyst Name Role Phone Jossie Guzman Primary Care Provider Encounter Details Date Type Department Care Team (Late st Contact Info) Description 12/31/2022 Telephone Gynecology/Obstetrics [facility] [address] [place] [address] Genesis Ivory PA-C [address] [place] [address] Allergies No known active allergiesdocumented as of this encounter (statuses as of 04/01/2023) Medications Medication Sig Dispensed Refills Start Date End Date Status Promethazine-DM 6.25-15 MG/5ML syrup Take 5 mL by mouth 4 times a day as needed for Cough. 120 mL 1 06/13/2019 01/14/2023 Discontinued( Medication List Clean Up) documented as of this encounter (statuses as of 04/01/2023) Active Problems Problem Noted Date Diagnosed Date [...] Overview: Not applicable (under age of 18) documented as of this encounter (statuses as of 04/01/2023) Resolved Problems Problem Noted Date Diagnosed Date Resolved Date Constipation 08/15/2013 03/31/2017 Abdominal pain, epigastric 12/22/2010 1 05/31/2016 documented as of this encounter (statuses as of 04/01/2023) Immunizations Name Administration Dates Next Due DTaP [...] have money to get more. Often true [place] Depression Scale Answer Date Recorded [place] Depression Scale Total 0 03/26/2023 The thought of harming myself has occurred to me . Never 03/26/2023 Sex and Gender Information Value Date Recorded Sex Assigned at Female 01/02/2023 7:22 PM EDT Gender Identity Female 01/02/2023 7:22 PM EDT Sexual Orientation Straight 01/02/2023 7: 22 PM EDT Job Start Date Occupation Industry Not on file Not on file Not on file documented as of this encounter Miscellaneous Notes * Telephone Encounter - Breonna Gibson CRNP - 01/01/2023 10:38 AM EDT Order signed. * Telephone Encounter - Olga Freitas OSA - 01/01/2023 9:25 AM EDT Scheduled 01/14/2023 at 12:45pm in Radiology for Dating US and at 1:45pm with Women's Health for New Healthy Beginning appointment. Cassy Coyle order dating US * Telephone Encounter - Jacquelin Centeno LPN - 12/31/2022 4:02 PM EDT Pt called to schedule her first NOB appt. LMP unsure Pt states she did have a positive UPT on went to PCP in november had blood work which came back positive Were you using any type of control? No Any bleeding or any severe pelvic pain? No Are you taking any vitamins? Yes By LMP pt is approx unsure wks. Pt will need scheduled Now Insurance: P family Please call pt to get her scheduled diana for HB NOB. Pts number is [phone] documented in this encounter Plan of Treatment [...] this encounter Medical Devices Implanted Type Area Imagery Intelligence Device Identifier Shelf Expiration Date Model / Serial / Lot Sheet 38x50x.85mm 7210 X6 - [id number] Implanted:Qty: 1 on 05/27/2017 [place] Bubba Gates [place] [facility] [place] [employer] : [employer] 01/07/2025 7210 / / [id number] documented as of this encounter Visit Diagnoses Diagnosis Early stage of - Primary documented in this encounter Advance Directives [...] the patient have Health Care Power of Ballast Cleaning Operator? No Care Teams Data Report Analyst Relationship Specialty Start Date End Date Jossie Guzman CRNP PCP - General Nurse Practitioner 03/31/17 documented as of this encounter
--- OUTSIDE RECORDS SUMMARY | 2023-06-18 08:49 | External Medical Summary ---
Author Name Unknown Address Unknown Organization K01:LAB[facility]ATORY [facility] [place] - [address] [place] [address] Laboratory Report Ordering Provider Test Date Status CARTERCATIE 04/27/2023 13:53:11 Final Observation Date Value Abnormality Reference (Units ) Status Retic, % (auto) 04/27/2023 13:53:11 1.25 0.80-1.90 (%) Final Reticulocytes, Absolute 04/27/2023 13:53:11 42.8 31.3-100.1 (K/uL) Final Reticulocyte fraction, immature 04/27/2023 13:53:11 20.6 2.5-20.6 (%) Final Reticulocyte HGB 04/27/2023 13:53:11 21.4 Below low normal 29.7-37.4 (pg) Final Performing Location [facility] - [address] [place] [address]
--- OUTSIDE RECORDS SUMMARY | 2023-06-18 08:49 | External Medical Summary | Summary of Care ---
Author Name Unknown Organization [facility] Address [address] [facility] [address] Phone [phone] Care Team Providers Care Electronic Video Games Servicer Name Role Phone Jossie Guzman Primary Care Provider Reason for Visit * Reason Onset Date Comments Test Results 01/22/2023 Encounter Details Date Type Department Care Team (Late st Contact Info) Description 01/22/2023 [facility] [address] [place] [phone] Breonna Gibson CRNP [address] [place] [address] Test Results Allergies No known active allergiesdocumented as of this encounter (statuses as of 04/05/2023) Medications Medication Sig Dispensed Refills Start Date End Date Status 28-0.8 MG Oral Tablet Take by mouth. 0 Active documented as of this encounter (statuses as of 04/05/2023) Active Problems Problem Noted Date Diagnosed Date [...] as of this encounter (statuses as of 04/05/2023) Resolved Problems Problem Noted Date Diagnosed Date Resolved Date Constipation 08/15/2013 03/31/2017 Abdominal pain, epigastric 12/22/2010 1 05/31/2016 documented as of this encounter (statuses as of 04/05/2023) Immunizations Name Administration Dates Next Due DTaP [...] have money to get more. Often true [place] Depression Scale Answer Date Recorded [place] Depression Scale Total 0 03/26/2023 The thought [...] Telephone Encounter - Caroline Britt LPN - 01/22/2023 9:43 AM EDT left message for patient to call office * Telephone Encounter - Breonna Gibson CRNP - 01/22/2023 9:35 AM EDT Please make pt aware that her pap is normal, STI testing normal, but she has not completed her NOB bloodwork. Please encourage her to get this done. documented in this encounter Plan of Treatment [...] this encounter Medical Devices Implanted Type Area Bail Bondsman Device Identifier Shelf Expiration Date Model / Serial / Lot Sheet 38x50x.85mm 7210 X6 - [id number] Implanted:Qty: 1 on 05/27/2017 by Bubba Gates DO at [place] [facility] [place]: Eye [employer] : [employer] 01/07/2025 7210 / / [id number] documented as of this encounter Advance Directives [...] the patient have Health Care Power of Fashion Model? No Care Teams Electronic Video Games Servicer Relationship Specialty Start Date End Date Jossie Guzman CRNP PCP - General Nurse Practitioner 03/31/17 documented as of this encounter
--- OUTSIDE RECORDS SUMMARY | 2023-06-18 08:49 | External Medical Summary | Summary of Care ---
Author Name Unknown Organization [facility] Address [address] [facility] [place] [address] Phone [phone] Care Team Providers Care Rn Immunology Name Role Phone Jossie Guzman Primary Care Provider Encounter Details Date Type Department Care Team (Late st Contact Info) Description 04/16/2023 Telephone Gynecology/Obstetrics [facility] [address] [place] [address] [...] have money to get more. Often true [place] Depression Scale Answer Date Recorded [place] Depression Scale Total 0 03/26/2023 The thought [...] [facility] [address] [place] [address] Genesis Ivory PA-C [address] [place] [address] Health Maintenance Due Date Last Done Comments [...] this encounter Medical Devices Implanted Type Area Watch Repair Person Device Identifier Shelf Expiration Date Model / Serial / Lot Sheet 38x50x.85mm 7210 X6 - [id number] Implanted:Qty: 1 on 05/27/2017 by Bubba Gates DO [place] [facility] [place]: Eye [employer] : [employer] 01/07/2025 7210 / / [id number] documented as of this encounter Advance Directives [...] the patient have Health Care Power of Candle Molder Hand? No Care Teams Rn Immunology Relationship Specialty Start Date End Date Jossie Guzman CRNP PCP - General Nurse Practitioner 03/31/17 documented as of this encounter
--- OUTSIDE RECORDS SUMMARY | 2023-06-18 08:49 | External Medical Summary | Summary of Care ---
Author Name Unknown Organization [facility] Address [address] [facility] [place] [address] Phone [phone] Care Team Providers Care Pathologist Assistant Name Role Phone Jossie Guzman Primary Care Provider Encounter Details Date Type Department Care Team (Late st Contact Info) Description 04/16/2023 Telephone Gynecology/Obstetrics [facility] [address] [place] [address] [...] have money to get more. Often true [place] Depression Scale Answer Date Recorded [place] Depression Scale Total 0 03/26/2023 The thought [...] encounter Miscellaneous Notes * Telephone Encounter - Gabriella Bhatia MED ASSIST - 04/27/2023 2:11 PM EST Appt scheduled, MyG message sent documented in this encounter Plan of Treatment Upcoming Encounters Date Type Department Care Team (Late st Contact Info) Description 05/13/2023 1:15 PM EST Office Visit Gynecology/Obstetrics [facility]auf[facility] [address] [place] [address] Genesis Ivory PA-C [address] [place] [address] Health Maintenance Due Date Last Done Comments [...] this encounter Medical Devices Implanted Type Area Incinerator Plant General Supervisor Device Identifier Shelf Expiration Date Model / Serial / Lot Sheet 38x50x.85mm 7210 X6 - [id number] Implanted:Qty: 1 on 05/27/2017 by Bubba Gates DO at OR [facility] [place] Left: Eye [employer] : [employer] 01/07/2025 7210 / / [id number] documented as of this encounter Advance Directives [...] the patient have Health Care Power of Washing Machine Mechanic? No Care Teams Pathologist Assistant Relationship Specialty Start Date End Date Jossie Guzman CRNP PCP - General Nurse Practitioner 03/31/17 documented as of this encounter
--- OUTSIDE RECORDS SUMMARY | 2023-06-18 08:49 | External Medical Summary | Summary of Care ---
Author Name Unknown Organization [facility] Address [address] [place] [address] Phone [phone] Care Team Providers Care Sound Truck Operator Name Role Phone Jossie Guzman Primary Care Provider Reason for Visit * Reason Comments Blood Management Program Encounter Details Date Type Department Care Team (Late st Contact Info) Description 04/27/2023 Documentation Patient Blood Management, [place] [address] [place] [address] Gilbert Padron RN Allergies No known active allergiesdocumented as of this encounter (statuses as of 04/28/2023) Medications Medication Sig Dispensed Refills Start Date [...] as of this encounter (statuses as of 04/28/2023) Active Problems Problem Noted Date Diagnosed Date [...] as of this encounter (statuses as of 04/28/2023) Resolved Problems Problem Noted Date Diagnosed Date Resolved Date Constipation 08/15/2013 03/31/2017 Abdominal pain, epigastric 12/22/2010 1 05/31/2016 documented as of this encounter (statuses as of 04/28/2023) Immunizations Name Administration Dates Next Due DTaP [...] have money to get more. Often true [place] Depression Scale Answer Date Recorded [place] Depression Scale Total 0 03/26/2023 The thought [...] as of this encounter Progress Notes * Gilbert Padron RN - 04/28/2023 8:52 AM EST REFERRAL - Patient Blood Management Name: Brayden Angeles REQUESTING SERVICE: [facility] REASON FOR REFERRAL: new evaluation outpatient, anemia in [place]ELL: 06/15/23 Anemia Evaluation: Latest Reference Range & Units 04/27/23 13:53 HGB 12.0 - 15.3 g/dL 8.5 (L) HCT 36.0 - 45.2 % 30.2 (L) Iron 33 - 151 ug/dL 12 (L) Iron Binding Capacity 250 - 425 ug/dL 511 (H) Transferrin Saturation Percent 15 - 55 % 2 (L) Ferritin 13 - 150 ng/mL 5 (L) Immature Reticuloctye Fraction 2.5 - 20.6 % 20.6 Reticulocyte Hemoglobin 29.7 - 37.4 pg 21.4 (L) (L): Data is abnormally low (H): Data is abnormally high Current Patient Medications: Medications that may impair hemostasis: none Medications that may impair iron absorption: none Patient Refused Blood Transfusion? (e.g. Buddhism): no Possible Contributing Factors: iron deficiency Treatment Recommendations: PO iron trial not effective IV iron per OB MTM protocol. - repeat blood work completed 04/27 - OB MTM submitted 04/28 Thank you for allowing Blood Management to participate in the care of this patient. documented in this encounter Plan of Treatment Upcoming Encounters Date Type Department Care Team (Late st Contact Info) Description 05/13/2023 1:15 PM EST Office Visit Gynecology/Obstetrics [facility] [address] [place] [address] Genesis Ivory PA-C [address] [place] [address] Health Maintenance Due Date Last Done Comments [...] this encounter Medical Devices Implanted Type Area Linoleum Tile Floor Layer Device Identifier Shelf Expiration Date Model / Serial / Lot Sheet 38x50x.85mm 7210 X6 - [id number] Implanted:Qty: 1 on 05/27/2017 by Bubba Gates DO [place] [facility] [place] Eye [employer] : [employer] 01/07/2025 7210 / / [id number] documented as of this encounter Advance Directives [...] the patient have Health Care Power of Government Contracts Manager? No Care Teams Sound Truck Operator Relationship Specialty Start Date End Date Jossie Guzman CRNP PCP - General Nurse Practitioner 03/31/17 documented as of this encounter
--- OUTSIDE RECORDS SUMMARY | 2023-06-18 08:49 | External Medical Summary ---
Author Name Unknown Address Unknown Organization [id number]:LABORATORY [facility] [place] - [address] [place] [address] Laboratory Report Ordering Provider Test Date Status CARTERCATIE 04/27/2023 13:53:11 Final Observation Date Value Abnormality Reference (Units ) Status Iron 04/27/2023 13:53:11 12 Below low normal 33-151 (ug/dL) Final Iron-binding capacity 04/27/2023 13:53:11 511 Above high normal 250-425 (ug/dL) Final Transferrin Sat % 04/27/2023 13:53:11 2 Below low normal 15-55 (%) Final Performing Location [facility]ORY [facility] [place] - [address] [place] [address]
--- OUTSIDE RECORDS SUMMARY | 2023-06-18 08:49 | External Medical Summary | Summary of Care ---
Author Name Unknown Organization [facility] Address [address] [facility] [address] Phone [phone] Care Team Providers Care Talent Sourcer Name Role Phone Jossie Guzman Primary Care Provider Reason for Referral * (Within 10 days (routine)) Specialty Diagnoses / Procedures Referred By Sandra ch Referred To Contact Breonna Gibson CRNP [address] [place] [address] Referral ID Status Reason Start Date Expiration Date Visits Re quested Visits Authorized Question Answer Referral Priority Within 10 days (routine) Where should this appointment be scheduled? [facility] Reason for Visit * Reason Comments Return Visit Encounter Details Date Type Department Care Team (Late st Contact Info) Description 04/27/2023 1:30 PM EST [facility] [address] [place] [address] Breonna Gibson CRNP [address] [place] [address] Supervision of normal first , antepartum*; Health [...] 03/26/2023 Supervision of normal first , antepartu raud 01/14/2023 Gastroesophageal reflux 08/15/2013 ADVANCE DIRECTIVE INFORMATION [...] have money to get more. Often true [place] Depression Scale Answer Date Recorded [place] Depression Scale Total 0 03/26/2023 The thought [...] Reading Time Taken Comments Blood Pressure 100/62 04/27/2023 1:13 PM EST Pulse - - Temperature - - Respiratory Rate - - Oxygen Saturation - - Inhaled Oxygen Concentration - - Weight 61.2 kg (135 lb) 04/27/2023 1:13 PM EST Height 165.1 cm (5' 5") 04/27/2023 1:13 PM EST Body Mass Index 22.47 04/27/2023 1:13 PM EST documented in this encounter Progress Notes * Breonna Gibson CRNP - 04/27/2023 1:24 PM EST 33w No concerns. Was not notified of anemia on 28w labs. Will repeat CBC today and place blood management referral. She is agreeable to this. Baby is moving well. No contractions, bleeding, or LOF. States she is taking PNV. Planning to breastfeed. Undecided about PP contraception. JAN Costa * Jacquelin Centeno LPN - 04/27/2023 1:13 PM EST 33w0d Denies any issues documented in this encounter Plan of Treatment Upcoming Encounters Date Type Department Care Team (Late st Contact Info) Description 04/27/2023 2:10 PM EST [facility] [address] [place] [address] [phone] [facility] [address] [place] [address] Arrived 05/13/2023 1:15 PM EST Office Visit Gynecology/Obstetrics [facility] [address] [place] [address] Genesis Ivory PA-C [address] [place] [address] Scheduled Orders Name Type Priority Associated Diagnoses Orde r Schedule CBC WITH WBC DIFFERENTIAL AND ANEMIA REFLEX WORKUP Lab Routine Antepartum anemia complicating Expected: 04/27/2023 (Approximate), Expires: 04/27/2024 Scheduled Referrals Name Type Priority Associated Diagnoses Orde r Schedule BLOOD MANAGEMENT REFERRAL Referral Within 10 days (routine) Antepartum anemia complicating Ordered: 04/27/2023 Health Maintenance Due Date Last Done Comments [...] this encounter Medical Devices Implanted Type Area Poultry Raiser Device Identifier Shelf Expiration Date Model / Serial / Lot Sheet 38x50x.85mm 7210 X6 - [id number] Implanted:Qty: 1 on 05/27/2017 by Bubba Gates DO at [place] [facility] [place]: Eye [employer] 01/07/2025 7210 / / [id number] documented as of this encounter Visit Diagnoses Diagnosis Supervision of normal first , antepartum- Primary Health counseling Other specified counseling Antepartum anemia complicating Anemia, antepartum documented in [...] the patient have Health Care Power of Web Project Manager? No Care Teams Talent Sourcer Relationship Specialty Start Date End Date Jossie Guzman CRNP PCP - General Nurse Practitioner 03/31/17 documented as of this encounter
--- OUTSIDE RECORDS SUMMARY | 2023-06-18 08:49 | External Medical Summary | Summary of Care ---
Author Name Unknown Organization [facility] Address [address] [facility] [place] [address] Phone [phone] Care Team Providers Care Certified Medication Technician Name Role Phone Jossie Guzman Primary Care Provider Encounter Details Date Type Department Care Team (Late st Contact Info) Description 04/16/2023 Telephone Gynecology/Obstetrics [facility] [address] [place] [address] Breonna Gibson CRNP [address] [place] [address] Allergies No known active allergiesdocumented as of this encounter (statuses as of 04/20/2023) Medications Medication Sig Dispensed Refills Start Date [...] as of this encounter (statuses as of 04/20/2023) Active Problems Problem Noted Date Diagnosed Date [...] as of this encounter (statuses as of 04/20/2023) Resolved Problems Problem Noted Date Diagnosed Date Resolved Date Constipation 08/15/2013 03/31/2017 Abdominal pain, epigastric 12/22/2010 1 05/31/2016 documented as of this encounter (statuses as of 04/20/2023) Immunizations Name Administration Dates Next Due DTaP [...] have money to get more. Often true [place] Depression Scale Answer Date Recorded [place] Depression Scale Total 0 03/26/2023 The thought [...] Description 04/27/2023 1:30 PM EST Office Visit Gynecology/Obstetrics [facility] [address] [place] [address] Breonna Gibson CRNP [address] [place] [address] Health Maintenance Due Date Last Done Comments [...] this encounter Medical Devices Implanted Type Area Lines Tender Device Identifier Shelf Expiration Date Model / Serial / Lot Sheet 38x50x.85mm 7210 X6 - [id number] Implanted:Qty: 1 on 05/27/2017 by Bubba Gates DO at [place] [facility] [place] Left: Eye [employer] 01/07/2025 7210 / / [id number] documented as of this encounter Advance Directives [...] the patient have Health Care Power of Hand Spring Former? No Care Teams Certified Medication Technician Relationship Specialty Start Date End Date Jossie Guzman CRNP PCP - General Nurse Practitioner 03/31/17 documented as of this encounter
--- OUTSIDE RECORDS SUMMARY | 2023-06-18 08:49 | External Medical Summary | Summary of Care ---
Author Name Unknown Organization [facility] Address [address] [facility] [place] [address] Phone [phone] Care Team Providers Care Electric Gas Appliances Demonstrator Name Role Phone Jossie Guzman Primary Care Provider Reason for Visit * Reason Onset Date Comments Information 01/29/2023 Encounter Details Date Type Department Care Team (Late st Contact Info) Description 01/29/2023 Telephone Gynecology/Obstetrics [facility] [address] [place] [phone] Beronna Gibson CRNP [address] [place] [address] Information Allergies No known active allergiesdocumented as of [...] Date resolved First Support noted 01/14/2023 Lisa Loernzo RN 01/14/2023 Poor dental hygiene Encouraged dental [...] have money to get more. Often true [place] Depression Scale Answer Date Recorded [place] Depression Scale Total 0 03/26/2023 The thought [...] encounter Miscellaneous Notes * Telephone Encounter - Olga Freitas OSA - 01/29/2023 10:17 AM EDT US scheduled; and pt aware she needs to do labs * Telephone Encounter - Caroline Britt LPN - 01/29/2023 9:39 AM EDT Patient notified. Please help her schedule missed anatomy with her appt on 02/12 if possible. Call [phone] number in her chart. * Telephone Encounter - Breonna Gibson CRNP - 01/29/2023 9:16 AM EDT Needs u/s in about 2 weeks for missed anatomy, please help schedule. Order placed. Also remind her she still hasn't gotten her NOB labs done. She had said she was going to do them yesterday when she had her ultrasound done, but it doesn't appear that she did. documented in this encounter Plan of Treatment [...] this encounter Medical Devices Implanted Type Area Viticulture Teacher Device Identifier Shelf Expiration Date Model / Serial / Lot Sheet 38x50x.85mm 7210 X6 - [id number] Implanted:Qty: 1 on 05/27/2017 [place] Bubba Gates DO [place] [facility] [place] Eye [employer] 01/07/2025 7210 / / [id number] documented as of this encounter Results * US PREG LIMITED 1 OR MORE FETUSES (02/12/2023 8:56 AM EDT) Anatomical Region Laterality Modality Pelvis, Body Ultrasound 02/12/2023 10:2 9 AM EDT Impressions 02/12/2023 10:27 AM EDT IMPRESSION Lumbar and sacral spine are not well evaluated due to position. Follow-up in 2 weeks. Narrative 02/12/2023 10:27 AM EDT EXAM US PREG LIMITED 1 OR MORE FETUSES - 02/12/2023 8:56 am HISTORY missed anatomy COMPARISON 01/28/2023 TECHNIQUE Sonographic examination performed. FINDINGS : Iraheta Presentation: Breech heart rate: 155 bpm Amniotic Fluid: Normal Placenta: Posterior, no previa Anatomy C-Spine: Seen T-Spine: Seen L-Spine: Not seen S-Spine: Not seen 4-chamber view: Seen Procedure Note Kevin Orantes MD - 02/12/2023 EXAM US PREG LIMITED 1 OR MORE FETUSES - 02/12/2023 8:56 am HISTORY missed anatomy COMPARISON 01/28/2023 TECHNIQUE Sonographic examination performed. FINDINGS : Iraheta Presentation: Breech heart rate: 155 bpm Amniotic Fluid: Normal Placenta: Posterior, no previa Anatomy C-Spine: Seen T-Spine: Seen L-Spine: Not seen S-Spine: Not seen 4-chamber view: Seen IMPRESSION IMPRESSION Lumbar and sacral spine are not well evaluated due to position.Follow-up in 2 weeks. Breonna MONTOYA RAD ULTRASOUND documented in this encounter Visit Diagnoses Diagnosis Encounter for follow-up ultrasound of anatomy- Primary Encounter for follow-up ultrasound of anatomy documented in this encounter Advance Directives Latest [...] the patient have Health Care Power of Registered Nurse Step Down? No Care Teams Electric Gas Appliances Demonstrator Relationship Specialty Start Date End Date Jossie Guzman CRNP PCP - General Nurse Practitioner 03/31/17 documented as of this encounter
--- OUTSIDE RECORDS SUMMARY | 2023-06-18 08:49 | External Medical Summary | Summary of Care ---
Author Name Unknown Organization [facility] Address [address] [facility] [place] [address] Phone [phone] Care Team Providers Care Brownfield Redevelopment Site Manager Name Role Phone Jossie Guzman Primary Care Provider Encounter Details Date Type Department Care Team (Late st Contact Info) Description 04/16/2023 Telephone Gynecology/Obstetrics [facility] [address] [place] [address] Breonna Gibson CRNP [address] [place] [address] Allergies No known active allergiesdocumented as of this encounter (statuses as of 05/05/2023) Medications Medication Sig Dispensed Refills Start Date [...] as of this encounter (statuses as of 05/05/2023) Active Problems Problem Noted Date Diagnosed Date [...] as of this encounter (statuses as of 05/05/2023) Resolved Problems Problem Noted Date Diagnosed Date Resolved Date Constipation 08/15/2013 03/31/2017 Abdominal pain, epigastric 12/22/2010 1 05/31/2016 documented as of this encounter (statuses as of 05/05/2023) Immunizations Name Administration Dates Next Due DTaP [...] have money to get more. Often true [place] Depression Scale Answer Date Recorded [place] Depression Scale Total 0 03/26/2023 The thought [...] Gynecology/Obstetrics [facility] [address] [place] [address] Genesis Ivory PA-C [address] [place] [address] Health Maintenance Due Date Last Done Comments [...] this encounter Medical Devices Implanted Type Area Manager Client Device Identifier Shelf Expiration Date Model / Serial / Lot Sheet 38x50x.85mm 7210 X6 - [id number] Implanted:Qty: 1 on 05/27/2017 by Bubba Gates DO at OR [facility] [place] Left: Eye [employer] 01/07/2025 7210 / / [id number] documented as of this encounter Advance Directives [...] the patient have Health Care Power of Storage Brine Worker? No Care Teams Brown[place] Redevelopment Site Manager Relationship Specialty Start Date End Date Jossie Guzman CRNP PCP - General Nurse Practitioner 03/31/17 documented as of this encounter
--- OUTSIDE RECORDS SUMMARY | 2023-06-18 08:49 | External Medical Summary | Summary of Care ---
Author Name Unknown Organization [facility] Address [address] [facility] [place] [address] Phone [phone] Care Team Providers Care Processing Archivist Name Role Phone Jossie Guzman Primary Care Provider Reason for Visit * Reason Comments Return Visit Encounter Details Date Type Department Care Team (Late st Contact Info) Description 03/26/2023 10:15 AM EST Office Visit Gynecology/Obstetri cs [facility] [address] [place] [address] Breonna Gibson CRNP [address] [place] [address] Nurse Mandeep [facility] [address] [place] [address] Health counseling*; Supervision of normal first , antepartum; Antepartum anemia complicating Allergies No known active [...] have money to get more. Often true [place] Depression Scale Answer Date Recorded [place] Depression Scale Total 0 03/26/2023 The thought [...] Sign Reading Time Taken Comments Blood Pressure 108/60 03/26/2023 10:18 AM EST Pulse - - Temperature - - Respiratory Rate - - Oxygen Saturation - - Inhaled Oxygen Concentration - - Weight 59.9 kg (132 lb) 03/26/2023 10:18 AM EST Height 165.1 cm (5' 5") 03/26/2023 10:18 AM EST Body Mass Index 21.97 03/26/2023 10:18 AM EST documented in this encounter Progress Notes * Breonna Gibson CRNP - 03/26/2023 10:28 AM EST 28w3d Not seen in 6 weeks. Denies any concerns. Has not done glucola yet, states she will stop at lab today to do, after the visit. Anemic on NOB labs (that were drawn at 22w). Blood management requires oral iron first, which she states she has been taking. She reports good FM. No contractions, bleeding, or LOF. JAN Costa documented in this encounter Nursing Notes * Tracy Abad RN - 03/26/2023 10:46 AM EST Patient seen by [facility] Lens Gauger. Patient denies any questions or concerns. have you cut down with your smoking n/a have you quit n/a have you seen a cook's assistant no have you seen a social work assistant no are you receiving counseling no have you received dental care during your no are you enrolled in NHC no - has letter to schedule appt do you receive food stamps or [place] assistance no Tracy Abad RN * Thais Adair LPN - 03/26/2023 10:26 AM EST 28w3d Pt competing 28wk labs today, denies any concerns. documented in this encounter Plan of Treatment [...] this encounter Medical Devices Implanted Type Area Top Lift Compressor Device Identifier Shelf Expiration Date Model / Serial / Lot Sheet 38x50x.85mm 7210 X6 - [id number] Implanted:Qty: 1 on 05/27/2017 by Bubba Gates, [place] [facility] [place] Eye [employer] 01/07/2025 7210 / / [id number] documented as of this encounter Visit Diagnoses Diagnosis Health counseling- Primary Other specified counseling Supervision of normal first , antepartum Antepartum anemia complicating Anemia, antepartum documented [...] the patient have Health Care Power of Service Team Leader? No Care Teams Processing Archivist Relationship Specialty Start Date End Date Jossie Guzman CRNP PCP - General Nurse Practitioner 03/31/17 documented as of this encounter
--- OUTSIDE RECORDS SUMMARY | 2023-06-18 08:50 | External Medical Summary ---
Author Name Unknown Address Unknown Organization K01[place] [facility] [place] [address] [place] [address] Laboratory Report Ordering Provider Test Date Status ALMAS SIMMS 03/26/2023 11:47:31 Final Observation Date Value Abnormality Reference (Units ) Status Retic, % (auto) 03/26/2023 11:47:31 2.02 Above high normal 0.80-1.90 (%) Final Reticulocytes, Absolute 03/26/2023 11:47:31 68.1 31.3-100.1 (K/uL) Final Reticulocyte fraction, immature 03/26/2023 11:47:31 34.2 Above high normal 2.5-20.6 (%) Final Reticulocyte HGB 03/26/2023 11:47:31 27.2 Below low normal 29.7-37.4 (pg) Final Performing Location [place] [place] [address] [place] [address]
--- OUTSIDE RECORDS SUMMARY | 2023-06-18 08:50 | External Medical Summary | Summary of Care ---
Author Name Unknown Organization [facility] Address [address] [place] [address] Phone [phone] Care Team Providers Care Waterproofing Supervisor Name Role Phone Thomas Jossie MONTOYA Primary Care Provider Reason for Visit * Reason Comments Outpatient Testing Encounter Details Date Type Department Care Team Description 02/12/2023 Laboratory Laboratory, [facility] [address] [place] [id number] [facility] [address] [place] [address] Encounter for supervision of normal first in second trimester Allergies No known active allergiesdocumented as of this encounter (statuses as of 02/12/2023) Medications Medication Sig Dispensed Refills Start Date End Date Status 28-0.8 MG Oral Tablet Take by mouth. 0 Active documented as of this encounter (statuses as of 02/12/2023) Active Problems Problem Noted Date Food insecurity 01/18/2023 Overview: Per [facility] Protocol Health counseling 01/14/2023 Overview: Problem Action Taken Date entered Entered by Date resolved First Support noted 01/14/2023 Lisa Lorenzo RN 01/14/2023 Poor dental hygiene Encouraged dental visit 01/14/2023 Lisa Lorenzo RN 01/14/2023 nutrition Due date letter given for WIC 01/14/2023 Lisa Lorenzo RN 01/14/2023 Supervision of normal first , a ntepartum 01/14/2023 Gastroesophageal reflux 08/15/2013 ADVANCE DIRECTIVE INFORMATION 06/24/2005 Overview: Not applicable (under age of 18) Estimated Date of Delivery Comme nts Yes 06/15/2023 Based on Ultraso und documented as of this encounter (statuses as of 02/12/2023) Resolved Problems Problem Noted Date Resolved Date Constipation 08/15/2013 03/31/2017 Abdominal pain, epigastric 12/22/201003/31 documented as of this encounter (statuses as of 02/12/2023) Immunizations Name Administration Dates Next Due DTaP [...] drink = 0.6 oz pur e alcohol) Food Insecurity Answer Date Recorded Within the past 12 months, y ou worried that your food would run out before you got money to buy more. Sometimes true 2022 Within the past 12 months, t he food you bought just didn't last and you didn't have money to get more. Often true Estimated Date of Delivery Comme nts Yes 06/15/2023 Based on Ultraso und Sex Assigned at Date Recorded Female 01/02/2023 7:22 PM E DT Job Start Date Occupation Industry Not on file Not on file Not on file documented as of this encounter Plan of Treatment Upcoming Encounters Date Type Specialty Care Team Description 02/12/2023 Office Visit Gynecology Obstetrics Breonna Gibson CRNP [address] [place] [address] Supervision of normal first , antepartum* 03/12/2023 Office Visit Gynecology Obstetrics Breonna Gibson CRNP [address] [place] [address] Pending Results Name Type Priority Associated Diagnoses Date /Time TYPE AND SCREEN Lab Routine Encounter for supervision of normal first in second trimester 02/12/2023 9:19 AM EDT RUBELLA IGG ANTIBODY Lab Routine Encounter for supervision of normal first in second trimester 02/12/2023 9:19 AM EDT HEPATITIS B SURFACE ANTIGEN Lab Routine Encounter for supervision of normal first in second trimester 02/12/2023 9:19 AM EDT HIV ANTIGEN & ANTIBODY SCREEN W/ CONFIRMATION Lab Routine Encounter for supervision of normal first in second trimester 02/12/2023 9:19 AM EDT CBC WITH WBC DIFFERENTIAL AND ANEMIA REFLEX WORKUP Lab Routine Encounter for supervision of normal first in second trimester 02/12/2023 9:19 AM EDT HEPATITIS C ANTIBODY SCREEN WITH PROGRESSION TO HEPATITIS C RNA QUANTITATIVE Lab Routine Encounter for supervision of normal first in second trimester 02/12/2023 9:19 AM EDT SYPHILIS ANTIBODY SCREEN WITH REFLEX TO RPR Lab Routine Encounter for supervision of normal first in second trimester 02/12/2023 9:19 AM EDT ANEMIA CBC Lab Routine Encounter for supervision of normal first in second trimester 02/12/2023 9:19 AM EDT DIFFERENTIAL, AUTOMATED Lab Routine Encounter for supervision of normal first in second trimester 02/12/2023 9:19 AM EDT ANEMIA REFLEX CHEMISTRY HOLD Lab Routine Encounter for supervision of normal first in second trimester 02/12/2023 9:19 AM EDT HEPATITIS C ANTIBODY Lab Routine Encounter for supervision of normal first in second trimester 02/12/2023 9:19 AM EDT HEPATITIS C RNA ADD ON Lab Routine Encounter for supervision of normal first in second trimester 02/12/2023 9:19 AM EDT SYPHILIS ANTIBODY SCREEN Lab Routine Encounter for supervision of normal first in second trimester 02/12/2023 9:19 AM EDT Health Maintenance Due Date Last Done Comments COVID-19 Vaccine (#1) 2002 GARDASIL-HPV IMMUNIZATION SERIES (2 - 2-dose series) 07/17/2014 01/17/2014 (Refused) HIV Screening 2017 Yearly Wellness Visit 02/19/2017 02/20/2016 , 02/15/2015, 01/17/2014, Additional history exists Depression Screening 02/04/2018 02/04/2017 Hepatitis C Screening 01/21/2020 Influenza Vaccine (FLU shot) (#1) 2023 Gonorrhea / Chlamydia Screen 01/15/2024 01/14/2023, 03/31/2017 DTaP,Tdap,and Td Vaccines (7 - Td or Tdap) 01/18/2024 01/17/2014, 12/26/2007, 06/11/2003, Additional history exists Pap Smear 01/14/2026 01/14/2023 Hepatitis B Completed 2002, 01/2003, 2002 MENINGOCOCCAL (MENACTRA/MENVEO) Completed 06/28/2019, 01/17/2014 Pneumococcal Vaccine: Pediatrics (0 to 5 Years) and At-Risk Patients (6 to 64 Years) Aged Out No longer eligible based on patient's age to complete this topic documented as of this encounter Medical Devices Implanted Type Area Bobbin Trucker Device Identifier Shelf Expiration Date Model / Serial / Lot Sheet 38x50x.85mm 7210 X6 - [id number] Implanted:Qty: 1 on 05/27/2017 [place] Bubba Gates [place] [facility] [place] Eye [employer] : [employer] 01/07/2025 7210 / / [id number] documented as of this encounter Visit Diagnoses Diagnosis Supervision of normal first , antepartum- Primary Encounter for supervision of normal first in second trimester Supervision of normal first documented in this encounter Advance Directives Latest [...] the patient have Health Care Power of Cook Helper? No Care Teams Waterproofing Supervisor Relationship Specialty Start Date End Date Jossie Guzman CRNP PCP - General Nurse Practitioner 03/31/17 documented as of this encounter
--- OUTSIDE RECORDS SUMMARY | 2023-06-18 08:50 | External Medical Summary ---
Author Name Unknown Address Unknown Organization K01:[facility] [place] [address] [place] [address] Laboratory Report Ordering Provider Test Date Status CATIE MACHADO 02/12/2023 09:19:50 Final Observation Date Value Abnormality Reference (Units ) Status Hep C Ab 02/12/2023 09:19:50 Negative Negative Final Further HCV quantitative makayla ting not performed per protocol. Performing Location LAB[facility]ATORY [facility] [place] - [address] [place] [address]
--- OUTSIDE RECORDS SUMMARY | 2023-06-18 08:50 | External Medical Summary | Summary of Care ---
Author Name Unknown Organization [facility] Address [address] [place] [address] Phone [phone] Care Team Providers Care Sausage Grinder Name Role Phone Jossie Guzman Primary Care Provider Reason for Visit * Reason Comments Return Visit Encounter Details Date Type Department Care Team Description 02/12/2023 Office Visit Gynecology/Obstetrics [facility] [address] [place] [phone] Breonna Gibson CRNP [address] [place] [address] Supervision of normal first , antepartum* Allergies No known active allergiesdocumented as of [...] Sign Reading Time Taken Comments Blood Pressure 102/60 02/12/2023 9:00 AM EDT Pulse - - Temperature - - Respiratory Rate - - Oxygen Saturation - - Inhaled Oxygen Concentration - - Weight 58.1 kg (128 lb) 02/12/2023 9:00 AM EDT Height - - Body Mass Index - - documented in this encounter Progress Notes * JAN Costa - 02/12/2023 9:18 AM EDT 22w3d No concerns. Baby is active. No contractions, bleeding, or LOF. U/s today for missed anatomy, results pending. May need another u/s, will await report. Has not gotten NOB labs drawn. Location of lab reviewed by nursing staff as well as this provider, encouraged to stop on her way past today. JAN Costa documented in this encounter Nursing Notes * Lisa Lorenzo RN - 02/12/2023 9:00 AM EDT Pt aware to have labs drawn today. Agrees to stop on way out. documented in this encounter Plan of Treatment Upcoming Encounters Date Type Specialty Care Team Description 02/12/2023 Laboratory Laboratory Chrissy Kaufman [address] [place] [address] Encounter for supervision of normal first in second trimester 03/12/2023 Office Visit Gynecology Obstetrics Breonna Gibson CRNP [address] [place] [address] Health Maintenance Due Date Last Done Comments [...] this encounter Medical Devices Implanted Type Area Grader Meat Device Identifier Shelf Expiration Date Model / Serial / Lot Sheet 38x50x.85mm 7210 X6 - [id number] Implanted:Qty: 1 on 05/27/2017 by Bubba Gates, at OR [facility] [place] Left: Eye [employer] : [employer] 01/07/2025 7210 / / [id number] documented as of this encounter Visit Diagnoses [...] the patient have Health Care Power of Shipping Weigher? No Care Teams Sausage Grinder Relationship Specialty Start Date End Date Jossie Guzman CRNP PCP - General Nurse Practitioner 03/31/17 documented as of this encounter
--- OUTSIDE RECORDS SUMMARY | 2023-06-18 08:50 | External Medical Summary ---
Author Name Unknown Address Unknown Organization [id number]:LABORATORY [facility] [place] - [facility] [address] [place] [address] Laboratory Report Ordering Provider Test Date Status MENDEZALMAS MARSHALL 03/26/2023 11:47:31 Final Observation Date Value Abnormality Reference (Units ) Status Creatinine 03/26/2023 11:47:31 0.5 0.5-1.0 (mg/dL) Final Glomerular filtration rate/1.73 sq M.predicted [Volume Rate/Area] in Serum, Plasma or Blood by Creatinine-based formula (CKD-EPI) 03/26/2023 11:47:31 >90 >=60 (mL/min) Final eGFR is calculated based on the CKD-EPI 2020 equation Performing Location LABORATORY [facility] - [facility] [address] [place] [address]
--- OUTSIDE RECORDS SUMMARY | 2023-06-18 08:50 | External Medical Summary ---
Author Name Unknown Address Unknown Organization [id number]:LABORATORY [facility] - [address] [place] [address] Laboratory Report Ordering Provider Test Date Status ALMAS SIMMS 03/26/2023 11:47:31 Final Observation Date Value Abnormality Reference (Units ) Status Folic Acid 03/26/2023 11:47:31 17.1 >4.5 (ng/ mL) Final Performing Location [facility] - [address] [place] [address]
--- OUTSIDE RECORDS SUMMARY | 2023-06-18 08:50 | External Medical Summary | Summary of Care ---
Author Name Unknown Organization [facility] Address [address] [place] [address] Phone [phone] Care Team Providers Care Lasting Room Supervisor Name Role Phone Jossie Guzman Primary Care Provider Reason for Visit * Reason Onset Date Comments No Show 03/22/2023 Encounter Details Date Type Department Care Team (Late st Contact Info) Description 03/22/2023 Telephone Gynecology/Obstetrics [facility] [address] [facility] [address] [facility] [address] [place] [address] No Show Allergies No known active allergiesdocumented as of this encounter (statuses as of 03/22/2023) Medications Medication Sig Dispensed Refills Start Date [...] as of this encounter (statuses as of 03/22/2023) Active Problems Problem Noted Date Diagnosed Date [...] RN 01/14/2023 Supervision of normal first , antepartu m 01/14/2023 Gastroesophageal reflux 08/15/2013 ADVANCE DIRECTIVE INFORMATION 06/24/2005 Overview: Not applicable (under age of 18) Estimated Date of Delivery Comme nts Yes 06/15/2023 Based on Ultraso und documented as of this encounter (statuses as of 03/22/2023) Resolved Problems Problem Noted Date Diagnosed Date Resolved Date Constipation 08/15/2013 03/31/2017 Abdominal pain, epigastric 12/22/2010 1 05/31/2016 documented as of this encounter (statuses as of 03/22/2023) Immunizations Name Administration Dates Next Due DTaP [...] have money to get more. Often true [place] Depression Scale Answer Date Recorded [place] Depression Scale Total 0 01/14/2023 The thought of harming myself has occurred to me . Never 01/14/2023 Estimated Date of Delivery Comme nts Yes [...] encounter Miscellaneous Notes * Telephone Encounter - Thais Adair LPN - 03/22/2023 11:14 AM EST Pt no show for EULALIO, has not been seen since 02/12/2023. Attempted to call, phone not in service. Letter sent. documented in this encounter Plan of Treatment [...] this encounter Medical Devices Implanted Type Area Clip Coater Device Identifier Shelf Expiration Date Model / Serial / Lot Sheet 38x50x.85mm 7210 X6 - [id number] Implanted:Qty: 1 on 05/27/2017 by Bubba Gates, at OR [facility] [place] Left: Eye [employer] : [employer] 01/07/2025 7210 / / [id number] documented as of this encounter Advance Directives [...] the patient have Health Care Power of Communications Superintendent? No Care Teams Lasting Room Supervisor Relationship Specialty Start Date End Date Jossie Guzman CRNP PCP - General Nurse Practitioner 03/31/17 documented as of this encounter
--- OUTSIDE RECORDS SUMMARY | 2023-06-18 08:50 | External Medical Summary | Summary of Care ---
Author Name Unknown Organization [facility] Address [address] [facility] [place] [address] Phone [phone] Care Team Providers Care Cafe Server Name Role Phone Jossie Guzman Primary Care Provider Reason for Visit * Reason Onset Date Comments Appointment 03/24/2023 Encounter Details Date Type Department Care Team (Late st Contact Info) Description 03/24/2023 Telephone Gynecology/Obstetrics [facility] [address] [place] [address] Hi Short MD [address] [place] [address] Appointment Allergies No known active allergiesdocumented as of this encounter (statuses as of 03/25/2023) Medications Medication Sig Dispensed Refills Start Date [...] as of this encounter (statuses as of 03/25/2023) Active Problems Problem Noted Date Diagnosed Date [...] as of this encounter (statuses as of 03/25/2023) Resolved Problems Problem Noted Date Diagnosed Date Resolved Date Constipation 08/15/2013 03/31/2017 Abdominal pain, epigastric 12/22/2010 1 05/31/2016 documented as of this encounter (statuses as of 03/25/2023) Immunizations Name Administration Dates Next Due DTaP [...] have money to get more. Often true [place] Depression Scale Answer Date Recorded [place] Depression Scale Total 0 01/14/2023 The thought [...] encounter Miscellaneous Notes * Telephone Encounter - Juli Jimenez LPN - 03/25/2023 4:47 PM EST Patient scheduled for 03/26 with Breonna. Sent MyG with Paradine also. * Telephone Encounter - Caroline Britt LPN - 03/24/2023 1:29 PM EST left message for patient to call office. Patient missed her last appointment and [facility]. MyG also sent documented in this encounter Plan of Treatment Upcoming Encounters Date Type Department Care Team (Late st Contact Info) Description 03/26/2023 10:15 AM EST Office Visit Gynecology/Obstetrics Selvin Kaufman [address] [place] [address] Breonna Gibson CRNP [address] [place] [address] Kaufman, Nurse [facility] [address] [place] [address] Scheduled Orders Name Type Priority Associated Diagnoses Orde r Schedule CBC WITH WBC DIFFERENTIAL AND ANEMIA REFLEX WORKUP Lab Routine Supervision of normal first , antepartum Expected: 03/25/2023 (Approximate), Expires: 03/25/2024 SYPHILIS ANTIBODY SCREEN WITH REFLEX TO RPR Lab Routine Supervision of normal first , antepartum Expected: 03/25/2023 (Approximate), Expires: 03/25/2024 50-G GESTATIONAL GLUCOSE, 1 HOUR Lab Routine Supervision of normal first , antepartum Expected: 03/25/2023 (Approximate), Expires: 03/25/2024 Health Maintenance Due Date Last Done Comments [...] this encounter Medical Devices Implanted Type Area Credit Portfolio Advisor Device Identifier Shelf Expiration Date Model / Serial / Lot Sheet 38x50x.85mm 7210 X6 - [id number] Implanted:Qty: 1 on 05/27/2017 by Bubba Gates DO at OR [facility] [place] Left: Eye [employer] : [employer] 01/07/2025 7210 / / [id number] documented as of this encounter Visit Diagnoses Diagnosis Supervision of normal first , antepartum- Primary documented in this encounter Advance Directives [...] the patient have Health Care Power of Business Technology Teacher? No Care Teams Cafe Server Relationship Specialty Start Date End Date Jossie Guzman CRNP PCP - General Nurse Practitioner 03/31/17 documented as of this encounter
--- OUTSIDE RECORDS SUMMARY | 2023-06-18 08:50 | External Medical Summary ---
Author Name Unknown Address Unknown Organization K0G[facility] [address] [place] [address] Laboratory Report Ordering Provider Test Date Status MENDEZALMAS 03/26/2023 11:47:31 Final Observation Date Value Abnormality Reference (Units ) Status Glucose [Moles/volume] in Serum or Plasma --1 hour post 50 g glucose PO 03/26/2023 11:47:31 80 70-129 (mg/dL) Final Performing Location LABORATORY [facility] - [address] [place] [address]
--- OUTSIDE RECORDS SUMMARY | 2023-06-18 08:50 | External Medical Summary ---
Author Name Unknown Address Unknown Organization K01:[facility] [place] [address] [place] [id number] Laboratory Report Ordering Provider Test Date Status CATIE MACHADO 02/12/2023 09:19:50 Final Observation Date Value Abnormality Reference (Units ) Status Treponema pallidum Ab [Presence] in Serum by Immunoassay 02/12/2023 09:19:50 Nonreactive Nonreactive Final No serologic evidence of syp hilis. No additional testing clinicially indicated at this time. Consider repeat testing in 2-4 weeks if acute or primary syphilis is suspected. Performing Location [facility] [place] [address] [place] [id number]
--- OUTSIDE RECORDS SUMMARY | 2023-06-18 08:50 | External Medical Summary | Summary of Care ---
Author Name Unknown Organization [facility] Address [address] [facility] [place] [address] Phone [phone] Care Team Providers Care City Council Member Name Role Phone Jossie Guzman Primary Care Provider Reason for Referral * (Within 10 days (routine)) Specialty Diagnoses / Procedures Referred By Sandra ch Referred To Contact Breonna Gibson CRNP [address] [employer] [place] [address] Referral ID Status Reason Start Date Expiration Date Visits Re quested Visits Authorized Question Answer Referral Priority Within 10 days (routine) Where should this appointment be scheduled? [facility] Encounter Details Date Type Department Care Team Description 02/12/2023 Telephone Gynecology/Obstetrics [facility] [address] [place] [address] Breonna Gibson CRNP [address] [place] [address] Allergies No known active allergiesdocumented as of this encounter (statuses as of 02/15/2023) Medications Medication Sig Dispensed Refills Start Date End Date Status 28-0.8 MG Oral Tablet Take by mouth. 0 Active documented as of this encounter (statuses as of 02/15/2023) Active Problems Problem Noted Date Antepartum anemia complicating 02/15/2023 Overview: Hgb 9.0 at 22w. Blood management referral Food insecurity 01/18/2023 Overview: Per [employer] [...] as of this encounter (statuses as of 02/15/2023) Resolved Problems Problem Noted Date Resolved Date Constipation 08/15/2013 03/31/2017 Abdominal pain, epigastric 12/22/201003/31 documented as of this encounter (statuses as of 02/15/2023) Immunizations Name Administration Dates Next Due DTaP [...] encounter Miscellaneous Notes * Telephone Encounter - JAN Costa - 02/15/2023 2:47 PM EDT Blood management will not evaluate for leukemia. This would come from PCP office. Blood management referral placed. * Telephone Encounter - Tracy Abad RN - 02/15/2023 2:42 PM EDT Patient returned call and made aware. She verbalized understanding to all. Is agreeable to the blood management referral. Patient is asking production weigher if she can be tested for leukemia through blood management. States "her mom had leukemia as a child and they found it through anemia" . Please review/advise. The patient was sent to scheduling to schedule anatomy follow up. * Telephone Encounter - Caroline Britt LPN - 02/15/2023 10:25 AM EDT left message for patient to call office at [phone]. First number still states not in service. MyG sent. * Telephone Encounter - JAN Costa - 02/15/2023 10:19 AM EDT In addition to original message, please notify her that she is EXTREMELY anemic. Hemoglobin only 9.0. needs referral to blood management. If unable to reach her, please send a myG and/or letter to try and reach her. If unsuccessful, please make a note in her chart and/or let me know so I can put iton her chart. * Telephone Encounter - Caroline Britt LPN - 02/12/2023 1:24 PM EDT Called first number in chart - states not in service. Called second number and no answer. LM for return call. * Telephone Encounter - JAN Costa - 02/12/2023 1:01 PM EDT Needs u/s in about 2 weeks for missed anatomy, please help schedule. Order placed. documented in this encounter Plan of Treatment Upcoming Encounters Date Type Specialty Care Team Description 03/01/2023 Imaging Radiology 03/12/2023 Office Visit Gynecology Obstetrics Breonna Gibson CRNP [address] [facility] [place] [address] Scheduled Orders Name Type Priority Associated Diagnoses Orde r Schedule US PREG LIMITED 1 OR MORE FETUSES Medical Imaging Routine Encounter for follow-up ultrasound of anatomy Expected: 02/26/2023 (Approximate), Expires: 03/15/2024 Scheduled Referrals Name Type Priority Associated Diagnoses Orde r Schedule BLOOD MANAGEMENT REFERRAL Referral Within 10 days (routine) Antepartum anemia complicating Ordered: 02/15/2023 Health Maintenance Due Date Last Done Comments [...] this encounter Medical Devices Implanted Type Area Observatory Director Device Identifier Shelf Expiration Date Model / Serial / Lot Sheet 38x50x.85mm 7210 X6 - [id number] Implanted:Qty: 1 on 05/27/2017 by Bubba Gates DO at OR [facility] [place] Left: Eye [employer] : [employer] 01/07/2025 7210 / / [id number] documented as of this encounter Visit Diagnoses Diagnosis Encounter for follow-up ultrasound of anatomy- Primary Antepartum anemia complicating Anemia, antepartum documented in [...] the patient have Health Care Power of Electric Motor Controls Assembler? No Care Teams City Council Member Relationship Specialty Start Date End Date Jossie Guzman CRNP PCP - General Nurse Practitioner 03/31/17 documented as of this encounter
--- OUTSIDE RECORDS SUMMARY | 2023-06-18 08:50 | External Medical Summary | Summary of Care ---
Author Name Unknown Organization [facility] Address [address] [facility] [address] Phone [phone] Care Team Providers Care Mid Level Clinician Name Role Phone Jossie Guzman Primary Care Provider Reason for Visit * Reason Onset Date Comments Information 02/16/2023 Iron protocol Encounter Details Date Type Department Care Team Description 02/16/2023 Telephone Gynecology/Obstetrics [facility] [address] [place] [address] Breonna Gibson CRNP [address] [place] [address] Information (Iron protocol) Allergies No known active allergiesdocumented as of this encounter (statuses as of 02/16/2023) Medications Medication Sig Dispensed Refills Start Date [...] as of this encounter (statuses as of 02/16/2023) Active Problems Problem Noted Date Antepartum anemia [...] as of this encounter (statuses as of 02/16/2023) Resolved Problems Problem Noted Date Resolved Date Constipation 08/15/2013 03/31/2017 Abdominal pain, epigastric 12/22/201003/31 documented as of this encounter (statuses as of 02/16/2023) Immunizations Name Administration Dates Next Due DTaP [...] * Telephone Encounter - JAN Costa - 02/16/2023 12:57 PM EDT [place] Text from Gilbert Padron RN in blood management: needs to try oral iron before IV iron inprotocol in 2nd trimester. Per Gilbert, needs to take ferrous sulfate 325mg and vitamin C 250mg BID to [facility] [place]. He notified her this would be sent and she will be sending her boyfriend to milk pickup driver. Will need repeat CBC on 03/01- Gilbert made her aware of this as well. Order placed. documented in this encounter Plan of Treatment Upcoming Encounters Date Type Specialty Care Team Description 03/01/2023 Imaging Radiology 03/12/2023 Office Visit Gynecology Obstetrics Breonna Gibson CRNP [address] [place] [address] Scheduled Orders Name Type Priority Associated Diagnoses Orde r Schedule CBC Lab Routine Antepartum anemia complicating Expected: 03/02/2023, Expires: 02/17/2024 Health Maintenance Due Date Last Done Comments [...] this encounter Medical Devices Implanted Type Area Cattle Dehorner Device Identifier Shelf Expiration Date Model / Serial / Lot Sheet 38x50x.85mm 7210 X6 - [id number] Implanted:Qty: 1 on 05/27/2017 by Bubba Gates DO at OR [facility] [place] Left: Eye P[employer] YUMI : [employer] 01/07/2025 7210 / / [id number] documented as of this encounter Visit Diagnoses [...] the patient have Health Care Power of Hull Molder? No Care Teams Mid Level Clinician Relationship Specialty Start Date End Date Jossie Guzman CRNP PCP - General Nurse Practitioner 03/31/17 documented as of this encounter
--- OUTSIDE RECORDS SUMMARY | 2023-06-18 08:50 | External Medical Summary ---
Author Name Unknown Address Unknown Organization K01:LABORATORY [facility] [place] - [address] [place] [address] Laboratory Report Ordering Provider Test Date Status ALMAS SIMMS 03/26/2023 11:47:31 Final Observation Date Value Abnormality Reference (Units ) Status Iron 03/26/2023 11:47:31 15 Below low normal 33-151 (ug/dL) Final Iron-binding capacity 03/26/2023 11:47:31 526 Above high normal 250-425 (ug/dL) Final Transferrin Sat % 03/26/2023 11:47:31 3 Below low normal 15-55 (%) Final Performing Location LABORATORY [facility] - [address] [place] [address]
--- OUTSIDE RECORDS SUMMARY | 2023-06-18 08:50 | External Medical Summary ---
Author Name Unknown Address Unknown Organization K01:LAB[facility]ATORY [facility] [place] - [address] [place] [address] Laboratory Report Ordering Provider Test Date Status MENDEZALMAS 03/26/2023 11:47:31 Final Observation Date Value Abnormality Reference (Units ) Status Treponema pallidum Ab [Presence] in Serum by Immunoassay 03/26/2023 11:47:31 Nonreactive Nonreactive Final No serologic evidence of syp hilis. No additional testing clinicially indicated at this time. Consider repeat testing in 2-4 weeks if acute or primary syphilis is suspected. Performing Location LABORATORY [facility] [place] - [address] [place] [address]
--- OUTSIDE RECORDS SUMMARY | 2023-06-18 08:50 | External Medical Summary ---
Author Name Unknown Address Unknown Organization K01:LABORATORY [facility] - [address] [facility] [address] Laboratory Report Ordering Provider Test Date Status ALMAS SIMMS 03/26/2023 11:47:31 Final Observation Date Value Abnormality Reference (Units ) Status WBC, Total 03/26/2023 11:47:31 6.20 4.00-10.8 0 (K/uL) Final RBC 03/26/2023 11:47:31 3.38 3.85-5.15 (M/uL) Final Hemoglobin 03/26/2023 11:47:31 9.0 Below low normal 12 .0-15.3 (g/dL) Final Anemia reflex testing trigge rs on a HGB < 12.0 for Females and HGB < 13.0 for Males in accordance with the WHO Anemia Guidelines
Anemia reflex testing triggers on a HGB < 12.0 for Females and HGB < 13.0 for Males in accordance with the WHO Anemia Guidelines HCT 03/26/2023 11:47:31 31.0 Below low normal 36. 0-45.2 (%) Final MCV 03/26/2023 11:47:31 91.7 81.5-97.5 (fL) Final MCH 03/26/2023 11:47:31 26.6 27.0-34.0 (pg) Final MCHC 03/26/2023 11:47:31 29.0 32.0-36.0 (g/dL) Final RDW 03/26/2023 11:47:31 15.5 11.5-15.5 (%) Final Platelets 03/26/2023 11:47:31 278 140-400 (K /uL) Final MPV 03/26/2023 11:47:31 11.2 6.6-11.1 ( fL) Final Nucleated erythrocytes/100 leukocytes [Ratio] in Blood by Automated count 03/26/2023 11:47:31 0 <=0 (/100 WBCs) Final Performing Location LABORATORY [facility] [place] - [address] [facility] [address]
--- OUTSIDE RECORDS SUMMARY | 2023-06-18 08:50 | External Medical Summary ---
Author Name Unknown Address Unknown Organization K01:LABORATORY [facility] - [address] [facility] [place] [address] Laboratory Report Ordering Provider Test Date Status ALMAS SIMMS 03/26/2023 11:47:31 Final Observation Date Value Abnormality Reference (Units ) Status SYNC LEUKOCYTES IN BLOOD BY AUTOMATED COUNT 03/26/2023 11:47:31 6.20 4.00-10.80 (K/uL) Final Segs 03/26/2023 11:47:31 57.5 40.0-75.0 (%) Final Lymphs % 03/26/2023 11:47:31 24.7 18.0-42.0 (%) Final Monos 03/26/2023 11:47:31 11.8 Above high normal 1.0-11.0 (%) Final Eosinophils 03/26/2023 11:47:31 4.4 0.0-6.0 (%) Final Basos 03/26/2023 11:47:31 1.0 0.0-2.0 (%) Final Immature Granulocyte, Percent 03/26/2023 11:47:31 0.6 0.0-2.0 (%) Final Absolute Segs 03/26/2023 11:47:31 3.57 1.80-7.70 (K/uL) Final Lymphs, absolute 03/26/2023 11:47:31 1.53 1.00-4.80 (K/ul) Final Monos, Abs 03/26/2023 11:47:31 0.73 0.00-1.10 (K/uL) Final Eos, Abs 03/26/2023 11:47:31 0.27 0.00-0.70 (K/uL) Final Basos, Abs 03/26/2023 11:47:31 0.06 0.00-0.20 (K/uL) Final Immature Granulocytes, Number 03/26/2023 11:47:31 0.04 0.00-0.20 (K/uL) Final Performing Location LABORATORY [facility] [place] - [address] [facility] [address]
--- OUTSIDE RECORDS SUMMARY | 2023-06-18 08:50 | External Medical Summary | Summary of Care ---
Author Name Unknown Organization [facility] Address [address] [place] [address] Phone [phone] Care Team Providers Care Warehouse Distribution Specialist Name Role Phone Jossie Guzman Primary Care Provider Reason for Visit * Reason Comments Blood Management Program Encounter Details Date Type Department Care Team (Late st Contact Info) Description 02/15/2023 Documentation Patient Blood Management, [place] [address] [place] [address] Gilbert Padron RN Allergies No known active allergiesdocumented as of this encounter (statuses as of 03/16/2023) Medications Medication Sig Dispensed Refills Start Date End Date Status 28-0.8 MG Oral Tablet Take by mouth. 0 Active documented as of this encounter (statuses as of 03/16/2023) Active Problems Problem Noted Date Diagnosed Date [...] as of this encounter (statuses as of 03/16/2023) Resolved Problems Problem Noted Date Diagnosed Date Resolved Date Constipation 08/15/2013 03/31/2017 Abdominal pain, epigastric 12/22/2010 1 05/31/2016 documented as of this encounter (statuses as of 03/16/2023) Immunizations Name Administration Dates Next Due DTaP [...] have money to get more. Often true [place] Depression Scale Answer Date Recorded [place] Depression Scale Total 0 01/14/2023 The thought [...] Progress Notes * Gilbert Padron RN - 02/15/2023 3:11 PM EDT REFERRAL - Patient Blood Management Name: Brayden Angeles REQUESTING SERVICE: Kaelyn Kaufman OB REASON FOR REFERRAL: new evaluation outpatient, anemia in [place]: 06/15/23 Anemia Evaluation: Latest Reference Range & Units 02/12/23 09:19 HGB 12.0 - 15.3 g/dL 9.0 (L) HCT 36.0 - 45.2 % 30.6 (L) Iron 33 - 151 ug/dL 24 (L) Iron Binding Capacity 250 - 425 ug/dL 464 (H) Transferrin Saturation Percent 15 - 55 % 5 (L) Ferritin 13 - 150 ng/mL 5 (L) Vitamin B12 232 - 1,245 pg/mL 319 Folic Acid >4.5 ng/mL >20.0 Immature Reticuloctye Fraction 2.5 - 20.6 % 30.9 (H) Reticulocyte Hemoglobin 29.7 - 37.4 pg 26.8 (L) (L): Data is abnormally low (H): Data is abnormally high Current Patient Medications: Medications that may impair hemostasis: none Medications that may impair iron absorption: none Patient Refused Blood Transfusion? (e.g. Spiritism): no Possible Contributing Factors: iron deficiency Treatment Recommendations: PO Iron + vit C BID. Pt aware and will sweet pickled fruit maker and take. Repeat CBC in 2-3 weeks. If hgb < 10 OK with IV iron at [facility] [place] [facility]. OB aware and will send PO iron to pharmacy. 02/15 - Called patient to discuss recommendations. No answer, left voicemail for return call. 02/16 - Spoke with Manuel, agreeable to PO iron trial, will f/u on repeat blood work. 03/02 - repeat blood work not yet collected. 03/09 - repeat blood work not collected yet. 03/16 - Repeat blood work not collected. If patient collects repeat blood work and hgb < 11 AND she is agreeable with IV iron please resubmit PBM referral. Thank you for allowing Blood Management to participate in the care of this patient. documented in this encounter Plan of Treatment Upcoming Encounters Date Type Department Care Team (Late st Contact Info) Description 03/19/2023 9:45 AM EST Office Visit Gynecology/Obstetrics [facility] [address] [place] [address] Gloria Amin CNM [address] [place] [address] Health Maintenance Due Date Last Done Comments [...] this encounter Medical Devices Implanted Type Area Cremator Device Identifier Shelf Expiration Date Model / Serial / Lot Sheet 38x50x.85mm 7210 X6 - [id number] Implanted:Qty: 1 on 05/27/2017 by Bubba Gates DO at OR [facility] [place] Left: Eye [employer] 01/07/2025 7210 / / [id number] documented as of this encounter Advance Directives [...] the patient have Health Care Power of Mobile Designer? No Care Teams Warehouse Distribution Specialist Relationship Specialty Start Date End Date Jossie Guzman CRNP PCP - General Nurse Practitioner 03/31/17 documented as of this encounter
--- OUTSIDE RECORDS SUMMARY | 2023-06-18 08:50 | External Medical Summary | Summary of Care ---
Author Name Unknown Organization [facility] Address [address] [place] [address] Phone [phone] Care Team Providers Care Cook Restaurant Name Role Phone Jossie Guzman Primary Care Provider Encounter Details Date Type Department Care Team Description 02/23/2023 Telephone Care Coordination [address], [place] [phone] Briana Soto, Community Health Slab Tripper [address], [place] [phone] Allergies No known active allergiesdocumented as of this encounter (statuses as of 02/23/2023) Medications Medication Sig Dispensed Refills Start Date [...] as of this encounter (statuses as of 02/23/2023) Active Problems Problem Noted Date Antepartum anemia [...] as of this encounter (statuses as of 02/23/2023) Resolved Problems Problem Noted Date Resolved Date Constipation 08/15/2013 03/31/2017 Abdominal pain, epigastric 12/22/201003/31 documented as of this encounter (statuses as of 02/23/2023) Immunizations Name Administration Dates Next Due DTaP [...] encounter Miscellaneous Notes * Telephone Encounter - Monse Chavez Health Slab Tripper - 02/23/2023 12:59 PM EDT Attempted to contact patient , no answer, message left for patient to call back. documented in this encounter Plan of Treatment Upcoming Encounters Date Type Specialty Care Team Description 03/01/2023 Imaging Radiology 03/12/2023 Office Visit Gynecology Obstetrics Arthur, JAN Olmos [address] [place] [address] Health Maintenance Due Date Last Done Comments [...] this encounter Medical Devices Implanted Type Area Emergency Worker Device Identifier Shelf Expiration Date Model / Serial / Lot Sheet 38x50x.85mm 7210 X6 - [id number] Implanted:Qty: 1 on 05/27/2017 by Bubba Gates, DO at OR [facility] [place] Left: Eye [employer] 01/07/2025 7210 / / [id number] documented as of this encounter Advance Directives [...] Care Power of Scooper? No Care Teams Cook Restaurant Relationship Specialty Start Date End Date Jossie Guzman CRNP PCP - General Nurse Practitioner 03/31/17 documented as of this encounter
--- OUTSIDE RECORDS SUMMARY | 2023-06-18 08:50 | External Medical Summary ---
Author Name Unknown Address Unknown Organization [id number]:[facility] [place] [address] [place] [address] Laboratory Report Ordering Provider Test Date Status ALMAS SIMMS 03/26/2023 11:47:31 Final Observation Date Value Abnormality Reference (Units ) Status Vitamin B12 03/26/2023 11:47:31 [phone] (pg/mL) Final Performing Location [facility] - [address] [place] [address]
--- OUTSIDE RECORDS SUMMARY | 2023-06-18 08:50 | External Medical Summary ---
Author Name Unknown Address Unknown Organization [id number]:[facility] - [address] [place] [id number] Laboratory Report Ordering Provider Test Date Status MENDEZALMAS MARSHALL 03/26/2023 11:47:31 Final Observation Date Value Abnormality Reference (Units ) Status Ferritin 03/26/2023 11:47:31 5 Below low normal 13- 150 (ng/mL) Final Performing Location [facility] - [address] [place] [id number]
--- OUTSIDE RECORDS SUMMARY | 2023-06-18 08:50 | External Medical Summary ---
Author Name Unknown Address Unknown Organization [id number]:LAB[facility]ATORY [facility] - [address] [place] [address] Laboratory Report Ordering Provider Test Date Status CATIE MACHADO 02/12/2023 09:19:50 Final Observation Date Value Abnormality Reference (Units ) Status Folic Acid 02/12/2023 09:19:50 >20.0 >4.5 (ng/ mL) Final Performing Location [facility] - [address] [place] [address]
--- OUTSIDE RECORDS SUMMARY | 2023-06-18 08:50 | External Medical Summary ---
Author Name Unknown Address Unknown Organization [id number][place] [place] [address] [place] [address] Laboratory Report Ordering Provider Test Date Status FLEX SIMMSUSU 03/26/2023 11:47:31 Final Observation Date Value Abnormality Reference (Units ) Status TSH 03/26/2023 11:47:31 1.96 0.27-4.20 (uIU/mL) Final Performing Location [facility] - [address] [place] [address]
--- OUTSIDE RECORDS SUMMARY | 2023-06-18 08:51 | External Medical Summary ---
Author Name Unknown Address Unknown Organization [id number]:[facility] - [address] [place] [address] Laboratory Report Ordering Provider Test Date Status ACTIE MACHADO 02/12/2023 09:19:50 Final Observation Date Value Abnormality Reference (Units ) Status Ferritin 02/12/2023 09:19:50 5 Below low normal 13- 150 (ng/mL) Final Performing Location [facility] - [address] [place] [address]
--- OUTSIDE RECORDS SUMMARY | 2023-06-18 08:51 | External Medical Summary ---
Author Name Unknown Address Unknown Organization [id number]:[facility] [place] [address] [place] [address] Laboratory Report Ordering Provider Test Date Status CATIE MACHADO 02/12/2023 09:19:50 Final Observation Date Value Abnormality Reference (Units ) Status Iron 02/12/2023 09:19:50 24 Below low normal 33-151 (ug/dL) Final Iron-binding capacity 02/12/2023 09:19:50 464 Above high normal 250-425 (ug/dL) Final Transferrin Sat % 02/12/2023 09:19:50 5 Below low normal 15-55 (%) Final Performing Location [facility] [place] [address] [place] [address]
--- OUTSIDE RECORDS SUMMARY | 2023-06-18 08:51 | External Medical Summary | Summary of Care ---
Author Name Unknown Organization [facility] Address [address] [place] [address] Phone [phone] Care Team Providers Care Paper Feeder Name Role Phone Thomas Jossie MONTOYA Primary Care Provider Encounter Details Date Type Department Care Team Description 10/16/2022 Result Scan Unspecified Department <No scans attached> Allergies No known active allergiesdocumented as of this encounter (statuses as of 02/02/2023) Medications No known medicationsdocumented as of this encounter (statuses as of 02/02/2023) Active Problems Problem Noted Date Food insecurity [...] as of this encounter (statuses as of 02/02/2023) Resolved Problems Problem Noted Date Resolved Date Constipation 08/15/2013 03/31/2017 Abdominal pain, epigastric 12/22/201003/31 documented as of this encounter (statuses as of 02/02/2023) Immunizations Name Administration Dates Next Due DTaP [...] have money to get more. Often true Sex Assigned at Date Recorded Female 01/02/2023 7:22 PM E DT Job Start Date Occupation Industry Not on file Not on file Not on file documented as of this encounter Plan of Treatment Upcoming Encounters Date Type Specialty Care Team Description 02/12/2023 Imaging Radiology 02/12/2023 Office Visit Gynecology Obstetrics Breonna Gibson CRNP [address] [place] [address] Health Maintenance Due Date Last Done Comments [...] this encounter Medical Devices Implanted Type Area Scale Expert Device Identifier Shelf Expiration Date Model / Serial / Lot Sheet 38x50x.85mm 7210 X6 - [id number] Implanted:Qty: 1 on 05/27/2017 by Bubba Gates DO at OR [facility] [place] Left: Eye [employer] 01/07/2025 7210 / / [id number] documented as of this encounter Procedures Procedure Name Priority Date/Time Associated Diagnosis Comments OUTSIDE LAB RESULTS 10/16/2022 documented in this encounter Results * OUTSIDE LAB RESULTS (10/16/2022) 10/16/2022 No Physician Data Unknown LABORATORY documented in this encounter Advance Directives Latest [...] the patient have Health Care Power of Insurance Administrator? No Care Teams Paper Feeder Relationship Specialty Start Date End Date Jossie Guzman CRNP PCP - General Nurse Practitioner 03/31/17 documented as of this encounter
--- OUTSIDE RECORDS SUMMARY | 2023-06-18 08:51 | External Medical Summary ---
Author Name Unknown Address Unknown Organization K01:[facility] - [address] [place] [address] Laboratory Report Ordering Provider Test Date Status CATIE MACHADO 02/12/2023 09:19:50 Final Observation Date Value Abnormality Reference (Units ) Status Hep B surface Ag 02/12/2023 09:19:50 Negative Neg ative Final Performing Location [facility] - [address] [place] [address]
--- OUTSIDE RECORDS SUMMARY | 2023-06-18 08:51 | External Medical Summary ---
Author Name Unknown Address Unknown Organization K01[facility] [place] [facility] [address] [place] [address] Laboratory Report Ordering Provider Test Date Status CATIE MACHADO 02/12/2023 09:19:50 Final Observation Date Value Abnormality Reference (Units ) Status Creatinine 02/12/2023 09:19:50 0.5 0.5-1.0 (mg/dL) Final Glomerular filtration rate/1.73 sq M.predicted [Volume Rate/Area] in Serum, Plasma or Blood by Creatinine-based formula (CKD-EPI) 02/12/2023 09:19:50 >90 >=60 (mL/min) Final eGFR is calculated based on the CKD-EPI 2020 equation Performing Location [facility] [place] [facility] [address] [place] [address]
--- OUTSIDE RECORDS SUMMARY | 2023-06-18 08:51 | External Medical Summary | Summary of Care ---
Author Name Unknown Organization [facility] Address [address] [place] [address] Phone [phone] Care Team Providers Care Associate Agent Insurance Sales Name Role Phone Guzman Jossie MONTOYA Primary Care Provider Encounter Details Date Type Department Care Team Description 01/25/2023 Telephone Care Coordination [address] [place], [place] [phone] Briana Soto, Community [facility] Case Finisher [address], [place] [phone] Allergies No known active allergiesdocumented as of this encounter (statuses as of 01/25/2023) Medications Medication Sig Dispensed Refills Start Date End Date Status 28-0.8 MG Oral Tablet Take by mouth. 0 Active documented as of this encounter (statuses as of 01/25/2023) Active Problems Problem Noted Date Food insecurity 01/18/2023 Overview: Per [facility] Protocol Health counseling 01/14/2023 Overview: Problem Action Taken Date entered Entered by Date resolved First Support noted 01/14/2023 Lisa Lorenzo RN 01/14/2023 Poor dental hygiene Encouraged dental visit 01/14/2023 Lisa Lorenzo RN 01/14/2023 nutrition Due date letter given for [facility] 01/14/2023 Lisa Lorenzo RN 01/14/2023 Supervision of normal first , a ntepartum 01/14/2023 Gastroesophageal reflux 08/15/2013 ADVANCE DIRECTIVE INFORMATION 06/24/2005 Overview: Not applicable (under age of 18) Estimated Date of Delivery Comme nts Yes 06/15/2023 Based on Ultraso und documented as of this encounter (statuses as of 01/25/2023) Resolved Problems Problem Noted Date Resolved Date Constipation 08/15/2013 03/31/2017 Abdominal pain, epigastric 12/22/201003/31 documented as of this encounter (statuses as of 01/25/2023) Immunizations Name Administration Dates Next Due DTaP [...] encounter Miscellaneous Notes * Telephone Encounter - Briana Soto [facility] Case Finisher - 01/25/2023 5:48 PM EDT Attempted to contact patient, ZARINA spoke with members Mom who agreed to pass the message on to member to return [email or web address] Electronically signed by Briana Soto [facility] Health Case Finisher at 01/25/2023 5:58 PM EDT documented in this encounter Plan of Treatment Upcoming Encounters Date Type Specialty Care Team Description 01/28/2023 Imaging Radiology 02/12/2023 Office Visit Gynecology Obstetrics Breonna Gibson CRNP [address] [place] [address] Health Maintenance Due Date Last Done Comments [...] this encounter Medical Devices Implanted Type Area Screen Repairer Crusher Device Identifier Shelf Expiration Date Model / Serial / Lot Sheet 38x50x.85mm 7210 X6 - [id number] Implanted:Qty: 1 on 05/27/2017 by Bubba Gates DO at OR [facility] [place] Left: Eye [employer] : [employer] 01/07/2025 7210 / / [id number] documented as of this encounter Advance Directives [...] the patient have Health Care Power of Welder Production Line Gas? No Care Teams Associate Agent Insurance Sales Relationship Specialty Start Date End Date Jossie Guzman CRNP PCP - General Nurse Practitioner 03/31/17 documented as of this encounter
--- OUTSIDE RECORDS SUMMARY | 2023-06-18 08:51 | External Medical Summary ---
Author Name Unknown Address Unknown Organization K01[place] [place] [address] [place] [address] Laboratory Report Ordering Provider Test Date Status CATIE MACHADO 02/12/2023 09:19:50 Final Observation Date Value Abnormality Reference (Units ) Status HIV 1+2 Ab+HIV1 p24 Ag [Presence] in Serum or Plasma by Immunoassay 02/12/2023 09:19:50 Negative Negative Final Negative HIV-1/2 antigen and antibody screening tset results usually indicate the absence of HIV-1 and HIV-2 infection. However, such negative results do not rule-out acute HIV infection. If acute HIV-1 infection is highly suspected, it is recommended that a specimen be submitted for detection of HIV-1 RNA. Performing Location [facility] [place] [address] [place] [address]
--- OUTSIDE RECORDS SUMMARY | 2023-06-18 08:51 | External Medical Summary | Summary of Care ---
Author Name Unknown Organization [facility] Address [address] [facility] [place] [address] Phone [phone] Care Team Providers Care Spanish Interpreter Name Role Phone Jossie Guzman Primary Care Provider Reason for Visit * Reason Comments New Visit Encounter Details Date Type Department Care Team Description 01/14/2023 Office Visit Gynecology/Obstetrics [facility] [address] [place] [address] Breonna Gibson CRNP [address] [place] [address] Nurse Radha Cotto New [address] [place] [address] Encounter for supervision of normal first in second trimester* Allergies No known active allergiesdocumented as of this encounter (statuses as of 01/14/2023) Medications Medication Sig Dispensed Refills Start Date End Date Status 28-0.8 MG Oral Tablet Take by mouth. 0 Active Promethazine-DM 6.25-15 MG/5ML syrup Take 5 mL by mouth 4 times a day as needed for Cough. 120 mL 1 06/13/2019 01/14/2023 Discontinued( Medication List Clean Up) documented as of this encounter (statuses as of 01/14/2023) Active Problems Problem Noted Date Health counseling 01/14/2023 Overview: Problem Action Taken [...] as of this encounter (statuses as of 01/14/2023) Resolved Problems Problem Noted Date Resolved Date Constipation 08/15/2013 03/31/2017 Abdominal pain, epigastric 12/22/201003/31 documented as of this encounter (statuses as of 01/14/2023) Immunizations Name Administration Dates Next Due DTaP [...] Sign Reading Time Taken Comments Blood Pressure 110/58 01/14/2023 1:41 PM EDT Pulse - - Temperature - - Respiratory Rate - - Oxygen Saturation - - Inhaled Oxygen Concentration - - Weight 55.8 kg (123 lb) 01/14/2023 1:41 PM EDT Height 165.1 cm (5' 5") 01/14/2023 1:41 PM EDT Body Mass Index 20.47 01/14/2023 1:41 PM EDT documented in this encounter Progress Notes * JAN Costa - 01/14/2023 2:44 PM EDT HPI: Brayden Angeles is a 22 year old year old female here for NOB visit. 18w2d . EDC 06/15/23. Early dating u/s confirming single viable IUP. Reviewed PMH, PSH, social hx, and family hx with pt and FOB. Discussed genetic screening tests with pt. She declines symptoms: no nausea, no vomiting, no breast tenderness, no fatigue, no vaginal bleeding since LMP. She is taking PNV. Past Medical History: Diagnosis Date Anemia, unspecified NONE Past Surgical History: Procedure Laterality Date INSERT EYE SOCKET IMPLANT Left 05/27/2017 ORBITAL IMPLANT INSERTION performed by Bubba Gates, DO at OR [facility] NONE CO TONSILLECTOMY PRIMARY/SECONDARY AGE 12 OR MORE Current outpatient prescriptions Current Outpatient Medications Medication Sig Dispense Refill 28-0.8 MG Oral Tablet Take by mouth. No current facility-administered medications for this visit. Review of patient's allergies indicates: No Known Allergies Social History Social History Socioeconomic History Marital status: Single Spouse name: Not on file Number of children: Not on file Years of education: Not on file Highest education level: Not on file Occupational History Not on file Tobacco Use Smoking status: Never Smokeless tobacco: Never Tobacco comments: 1 smoker in household, outside Substance and Sexual Activity Alcohol use: No Drug use: No Sexual activity: Yes Partners: Male Other Topics Concern Service Not Asked Blood Transfusions Not Asked Caffeine Concern Not Asked Occupational Exposure Not Asked Hobby Hazards Not Asked Sleep Concern Not Asked Stress Concern Not Asked Weight Concern Not Asked Special Diet Not Asked Back Care Not Asked Exercise Not Asked Bike Helmet Not Asked Seat Belt Yes Self-Exams Not Asked Social History Narrative Not on file Social Determinants of Health Financial Resource Strain: Not on file Food Insecurity: Food Insecurity Present Worried About Running Out of Food in the Last Year: Sometimes true Ran Out of Food in the Last Year: Often true Transportation Needs: Not on file Physical Activity: Not on file Stress: Not on file Social Connections: Not on file Intimate Partner Violence: Not on file Housing Stability: Not on file Family History Family History Problem Relation Age of Onset Cancer Mother leukemia Heart Disorder Mother weak heart from meds with leukemia Musculo-skeletal Disorder Mother scoliosis Eye Problems Grandmother (Maternal) glasses Obstetric History OB History Para Term AB Living 1 SAB IAB Ectopic Multiple Live Births # Outcome Date GA Lbr Shai/2nd Weight Sex Delivery Anes PTL Lv 1 Current PHYSICAL EXAM: See physical IMPRESSION: Encounter for supervision of normal first in second trimester (Primary) - PREG SINGLE/1ST GEST, 14 WEEKS OR LATER; Future; Expected date: 01/28/2023 - CULTURE, URINE, QUANTITATIVE; Future; Expected date: 01/14/2023 - TYPE AND SCREEN; Future; Expected date: 01/14/2023 - RUBELLA IGG ANTIBODY; Future; Expected date: 01/14/2023 - HEPATITIS B SURFACE ANTIGEN; Future; Expected date: 01/14/2023 - HIV ANTIGEN & ANTIBODY SCREEN W/ CONFIRMATION; Future; Expected date: 01/14/2023 - CHLAMYDIA TRACHOMATIS AND NEISSERIA GONORRHOEAE, AMPLIFIED PROBE; Future; Expected date: 01/14/2023 - CBC WITH WBC DIFFERENTIAL AND ANEMIA REFLEX WORKUP; Future; Expected date: 01/14/2023 - HEPATITIS C ANTIBODY SCREEN WITH PROGRESSION TO HEPATITIS C RNA QUANTITATIVE; Future; Expected date: 01/14/2023 - SYPHILIS ANTIBODY SCREEN WITH REFLEX TO RPR; Future; Expected date: 01/14/2023 - LEDGER CLERK PAP SCREEN Follow Up: Return in about 4 weeks (around 02/11/2023) for araceli. | For: arcaeli | Check-out note: Lab today Anatomy u/s in 2 weeks JAN Costa * Lisa Lorenzo RN - 01/14/2023 1:45 PM EDT have you cut down with your smoking n/a have you quit n/a have you seen a check weigher n/a have you seen a geriatric social worker n/a are you receiving counseling n/a have you received dental care during your no are you enrolled in WIC plans to enroll in wic do you receive food stamps or hernandez assistance gets food stamps are you having problems with depression, receiving counseling or taking prescribed medications denies have you had little interest in doing things, or have you been bothered by feeling down, depressed,or hopeless denies documented in this encounter Plan of Treatment Upcoming Encounters Date Type Specialty Care Team Description 01/28/2023 Imaging Radiology 02/12/2023 Office Visit Gynecology Obstetrics Breonna Gibson CRNP [address] [facility] [place] [address] Pending Results Name Type Priority Associated Diagnoses Date /Time CULTURE, URINE, QUANTITATIVE Lab Routine Encounter for supervision of normal first in second trimester 01/14/2023 3:58 PM EDT CHLAMYDIA TRACHOMATIS AND NEISSERIA GONORRHOEAE, AMPLIFIED PROBE Lab Routine Encounter for supervision of normal first in second trimester 01/14/2023 3:58 PM EDT LEDGER CLERK PAP SCREEN Pathology Routine Encounter for supervision of normal first in second trimester 01/14/2023 3:58 PM EDT Scheduled Orders Name Type Priority Associated Diagnoses Orde r Schedule US PREG SINGLE/1ST GEST, 14 WEEKS OR LATER Medical Imaging Routine Encounter for supervision of normal first in second trimester Expected: 01/28/2023, Expires: 02/14/2024 CULTURE, URINE, QUANTITATIVE Lab Routine Encounter for supervision of normal first in second trimester Expected: 01/14/2023, Expires: 01/15/2024 TYPE AND SCREEN Lab Routine Encounter for supervision of normal first in second trimester Expected: 01/14/2023, Expires: 02/14/2024 RUBELLA IGG ANTIBODY Lab Routine Encounter for supervision of normal first in second trimester Expected: 01/14/2023, Expires: 01/15/2024 HEPATITIS B SURFACE ANTIGEN Lab Routine Encounter for supervision of normal first in second trimester Expected: 01/14/2023, Expires: 01/15/2024 HIV ANTIGEN & ANTIBODY SCREEN W/ CONFIRMATION Lab Routine Encounter for supervision of normal first in second trimester Expected: 01/14/2023, Expires: 01/15/2024 CHLAMYDIA TRACHOMATIS AND NEISSERIA GONORRHOEAE, AMPLIFIED PROBE Lab Routine Encounter for supervision of normal first in second trimester Expected: 01/14/2023, Expires: 01/15/2024 CBC WITH WBC DIFFERENTIAL AND ANEMIA REFLEX WORKUP Lab Routine Encounter for supervision of normal first in second trimester Expected: 01/14/2023, Expires: 01/15/2024 HEPATITIS C ANTIBODY SCREEN WITH PROGRESSION TO HEPATITIS C RNA QUANTITATIVE Lab Routine Encounter for supervision of normal first in second trimester Expected: 01/14/2023, Expires: 01/15/2024 SYPHILIS ANTIBODY SCREEN WITH REFLEX TO RPR Lab Routine Encounter for supervision of normal first in second trimester Expected: 01/14/2023, Expires: 01/15/2024 Health Maintenance Due Date Last Done Comments COVID-19 Vaccine (#1) 2002 GARDASIL-HPV IMMUNIZATION SERIES (2 - 2-dose series) 07/17/2014 01/17/2014 (Refused) HIV Screening 2017 Yearly Wellness Visit 02/19/2017 02/20/2016 , 02/15/2015, 01/17/2014, Additional history exists Depression Screening 02/04/2018 02/04/2017 Gonorrhea / Chlamydia Screen 03/31/2018 03/31/2017 Hepatitis C Screening 01/21/2020 Influenza Vaccine (FLU shot) (#1) 2023 DTaP,Tdap,and Td Vaccines (7 - Td or Tdap) 01/18/2024 01/17/2014, 12/26/2007, 06/11/2003, Additional history exists Hepatitis B Completed 2002, 01/2003, 2002 MENINGOCOCCAL (MENACTRA/MENVEO) Completed 06/28/2019, 01/17/2014 Pneumococcal Vaccine: Pediatrics (0 to 5 Years) and At-Risk Patients (6 to 64 Years) Aged Out No longer eligible based on patient's age to complete this topic documented as of this encounter Medical Devices Implanted Type Area Wick Tender Device Identifier Shelf Expiration Date Model / Serial / Lot Sheet 38x50x.[id number] 7210 X6 - [id number] Implanted:Qty: 1 on 05/27/2017 by Bubba Gates, at OR [facility] Left: Eye [employer] : [employer] 01/07/2025 7210 / / [id number] documented as of this encounter Visit Diagnoses Diagnosis Encounter for supervision of normal first in second trimester- Primary Supervision of normal first documented in this [...] the patient have Health Care Power of B And B Gang Worker? No Care Teams Spanish Interpreter Relationship Specialty Start Date End Date Jossie Guzman CRNP PCP - General Nurse Practitioner 03/31/17 documented as of this encounter
--- OUTSIDE RECORDS SUMMARY | 2023-06-18 08:51 | External Medical Summary ---
Author Name Unknown Address Unknown Organization [id number]:LABORATORY [facility] [place] - [address] [facility] [address] Laboratory Report Ordering Provider Test Date Status CATIE MACHADO 01/14/2023 15:58:08 Final Observation Date Value Abnormality Reference (Units ) Status Chlamydia trachomatis rRNA [Presence] in Specimen by ALMA ROSA with probe detection 01/14/2023 15:58:08 Negative Negative Final No Chlamydia trachomatis det ected by head loader-mediated nucleic acid amplification. Neisseria gonorrhoeae rRNA [ Presence] in Specimen by ALMA ROSA with probe detection 01/14/2023 15:58:08 Negative Negative Final No Neisseria gonorrhoeae det ected by head loader-mediated nucleic acid amplification. Performing Location LABORATORY [facility] - [address] [facility] [id number]
--- OUTSIDE RECORDS SUMMARY | 2023-06-18 08:51 | External Medical Summary ---
Author Name Unknown Address Unknown Organization [id number]:[facility] [address] [place] [place] [address] Laboratory Report Ordering Provider Test Date Status CATIE MACHADO 02/12/2023 09:19:50 Final Observation Date Value Abnormality Reference (Units ) Status Vitamin B12 02/12/2023 09:19:50 246 [id number] (pg/mL) Final Performing Location [facility] - [address] [place] [address]
--- OUTSIDE RECORDS SUMMARY | 2023-06-18 08:51 | External Medical Summary ---
Author Name Unknown Address Unknown Organization [id number]:[facility]ATORY [facility] - [facility] [address] [place] [address] Laboratory Report Ordering Provider Test Date Status CATIE MACHADO 02/12/2023 09:19:50 Final Observation Date Value Abnormality Reference (Units ) Status Retic, % (auto) 02/12/2023 09:19:50 2.07 Above high normal 0.80-1.90 (%) Final Reticulocytes, Absolute 02/12/2023 09:19:50 68.3 31.3-100.1 (K/uL) Final Reticulocyte fraction, immature 02/12/2023 09:19:50 30.9 Above high normal 2.5-20.6 (%) Final Reticulocyte HGB 02/12/2023 09:19:50 26.8 Below low normal 29.7-37.4 (pg) Final Performing Location LABORATORY [facility] - [address] [place] [address]
--- OUTSIDE RECORDS SUMMARY | 2023-06-18 08:51 | External Medical Summary ---
Author Name Unknown Address Unknown Organization [id number]:[facility]ORY [facility] - [address] [place] [address] Laboratory Report Ordering Provider Test Date Status CATIE MACHADO 02/12/2023 09:19:50 Final Observation Date Value Abnormality Reference (Units ) Status TSH 02/12/2023 09:19:50 3.34 0.27-4.20 (uIU/mL) Final Performing Location [facility] - [address] [place] [address]
--- OUTSIDE RECORDS SUMMARY | 2023-06-18 08:51 | External Medical Summary | Summary of Care ---
Author Name Unknown Organization [facility] Address [address] [place] [address] Phone [phone] Care Team Providers Care Plastic And Reconstructive Surgeon Name Role Phone GuzmanMatthewJossieniraj MONTOYA Primary Care Provider Reason for Referral * Evaluate & Treat - Unlimited Visits (Within 24 hrs (call dept; emergent)) - Authorized Specialty Diagnoses / Procedures Referred By Contcorin t Referred To Contact Urology Diagnoses Examination Florentin Robbins MD [address] [place] [address] Referral ID Status Reason Start Date Expiration Date Visits Requested Visits Authorized [id number] Authorized Specialty Services Required 12/28/2022 999 999 Question Answer Referral Priority Within 24 hrs (call dept; emergent) What is the patient being referred for? Other conditions Comments Penile split-Elizondo Encounter Details Date Type Department Care Team Description 12/28/2022 Orders Only Access [facility], [place] [facility] [address] [facility] *DO NOT REMOVE THIS DEPARTMENT* [place] [address] Request, External Referral Examination* Allergies No known active allergiesdocumented as of this encounter (statuses as of 12/28/2022) Medications Medication Sig Dispensed Refills Start Date End Date Status Promethazine-DM 6.25-15 MG/5ML syrup Take 5 mL by mouth 4 times a day as needed for Cough. 120 mL 1 06/13/2019 Active Additional Information Patient not taking.Reported on 06/28/2019 documented as of this encounter (statuses as of 12/28/2022) Active Problems Problem Noted Date Gastroesophageal reflux 08/15/2013 ADVANCE DIRECTIVE INFORMATION 06/24/2005 Overview: Not applicable (under age of 18) documented as of this encounter (statuses as of 12/28/2022) Resolved Problems Problem Noted Date Resolved Date Constipation 08/15/2013 03/31/2017 Abdominal pain, epigastric 12/22/201003/31 documented as of this encounter (statuses as of 12/28/2022) Immunizations Name Administration Dates Next Due DTaP - Dipth/Tet/Acell Pertussis 12/26/2007 IPV - Polio Virus Vaccine (Inact) [...] drink = 0.6 oz pur e alcohol) Sex Assigned at Date Recorded Not on file documented as of this encounter Plan of Treatment Scheduled Referrals Name Type Priority Associated Diagnoses Orde r Schedule UROLOGY REFERRAL OP Referral Within 24 hr s (call dept; emergent) Examination Ordered: 12/28/2022 Health Maintenance Due Date Last Done Comments COVID-19 Vaccine (#1) 2002 GARDASIL-HPV IMMUNIZATION SERIES (2 - 2-dose series) 07/17/2014 01/17/2014 (Refused) HIV Screening 2017 Yearly Wellness Visit 02/19/2017 02/20/2016 , 02/15/2015, 01/17/2014, Additional history exists Depression Screening, Annual for Pts 12 and Over 02/04/2018 02/04/2017 Gonorrhea / Chlamydia Screen 03/31/2018 [...] this encounter Medical Devices Implanted Type Area Bookie Device Identifier Shelf Expiration Date Model / Serial / Lot Sheet 38x50x.85mm 7210 X6 - [id number] Implanted:Qty: 1 on 05/27/2017 by Bubba Gates, at OR [facility] [place] Left: Eye [employer] : [employer] 01/07/2025 7210 / / [id number] documented as of this encounter Visit Diagnoses Diagnosis Examination- Primary Unspecified examination documented in this encounter Advance Directives Latest [...] the patient have Health Care Power of Dry Transfer Man? No Care Teams Plastic And Reconstructive Surgeon Relationship Specialty Start Date End Date Jossie Guzman CRNP PCP - General Nurse Practitioner 03/31/17 documented as of this encounter
--- OUTSIDE RECORDS SUMMARY | 2023-06-18 08:51 | External Medical Summary ---
Author Name Unknown Address Unknown Organization K01:[facility]ORY [facility] - [address] [place] [address] Laboratory Report Ordering Provider Test Date Status CARTERCATIE 02/12/2023 09:19:50 Final Observation Date Value Abnormality Reference (Units ) Status Rubella virus IgG Ab [Presence] in Serum 02/12/2023 09:19:50 Positive Abnormal Negative Final A positive result is consist ent with having had rubella virus or vaccination. Performing Location [facility] - [address] [place] [address]
--- OUTSIDE RECORDS SUMMARY | 2023-06-18 08:51 | External Medical Summary ---
Author Name Unknown Address Unknown Organization [id number]:[facility]ATORY [facility] - [address] [facility] [address] Laboratory Report Ordering Provider Test Date Status CATIE MACHADO 02/12/2023 09:19:50 Final Observation Date Value Abnormality Reference (Units ) Status WBC, Total 02/12/2023 09:19:50 7.52 4.00-10.8 0 (K/uL) Final RBC 02/12/2023 09:19:50 3.35 3.85-5.15 (M/uL) Final Hemoglobin 02/12/2023 09:19:50 9.0 Below low normal 12 .0-15.3 (g/dL) Final Anemia reflex testing trigge rs on a HGB < 12.0 for Females and HGB < 13.0 for Males in accordance with the WHO Anemia Guidelines
Anemia reflex testing triggers on a HGB < 12.0 for Females and HGB < 13.0 for Males in accordance with the WHO Anemia Guidelines HCT 02/12/2023 09:19:50 30.6 Below low normal 36. 0-45.2 (%) Final MCV 02/12/2023 09:19:50 91.3 81.5-97.5 (fL) Final MCH 02/12/2023 09:19:50 26.9 27.0-34.0 (pg) Final MCHC 02/12/2023 09:19:50 29.4 32.0-36.0 (g/dL) Final RDW 02/12/2023 09:19:50 14.7 11.5-15.5 (%) Final Platelets 02/12/2023 09:19:50 299 140-400 (K /uL) Final MPV 02/12/2023 09:19:50 11.1 6.6-11.1 ( fL) Final Nucleated erythrocytes/100 leukocytes [Ratio] in Blood by Automated count 02/12/2023 09:19:50 0 <=0 (/100 WBCs) Final Performing Location LABORATORY [facility] [place] - [address] [facility] [address]
--- OUTSIDE RECORDS SUMMARY | 2023-06-18 08:51 | External Medical Summary | Summary of Care ---
Author Name Unknown Organization [facility] Address [address] [place] [facility] [place] [address] Phone [phone] Care Team Providers Care Big Machine Consultant Name Role Phone Jossie Guzman Primary Care Provider Reason for Visit * Reason Comments New Visit Encounter Details Date Type Department Care Team Description 01/14/2023 Office Visit Gynecology/Obstetrics [facility] [address] [place] [address] Breonna [...] 05/27/2017 ORBITAL IMPLANT INSERTION performed by Bubba Gates DO at OR [facility] [place] NONE [place] TONSILLECTOMY PRIMARY/SECONDARY AGE 12 OR MORE Current [...] TO RPR; Future; Expected date: 01/14/2023 - JAIL KEEPER PAP SCREEN Follow Up: Return in about 4 weeks (around 02/11/2023) for araceli. | For: araceli | Check-out note: Lab today Anatomy u/s in 2 weeks JAN Costa * Lisa Lorenzo RN - 01/14/2023 1:45 PM EDT have you cut down with your smoking n/a have you quit n/a have you seen a rotary cutter n/a have you seen a oncology social work n/a are you receiving counseling n/a have [...] Visit Gynecology Obstetrics Breonna Gibson CRNP [address] [facility] [place] [address] Scheduled Orders Name Type Priority Associated Diagnoses [...] in second trimester Expected: 01/14/2023, Expires: 01/15/2024 JAIL KEEPER PAP SCREEN Pathology Routine Encounter for supervision of normal first in second trimester Ordered: 01/14/2023 Health Maintenance Due Date Last Done Comments [...] this encounter Medical Devices Implanted Type Area Tank Tender Device Identifier Shelf Expiration Date Model / Serial / Lot Sheet 38x50x.85mm 7210 X6 - [id number] Implanted:Qty: 1 on 05/27/2017 by Bubba Gates DO at [facility] Left: Eye [employer] : [employer] 01/07/2025 7210 / / [id number] documented as of this encounter Visit Diagnoses [...] the patient have Health Care Power of Data Management Associate? No Care Teams Big Machine Consultant Relationship Specialty Start Date End Date Jossie Guzman CRNP PCP - General Nurse Practitioner 03/31/17 documented as of this encounter
--- OUTSIDE RECORDS SUMMARY | 2023-06-18 08:51 | External Medical Summary ---
Author Name Unknown Address Unknown Organization K01:LABORATORY [facility] [place] - [address] [place] [address] Laboratory Report Ordering Provider Test Date Status CTAIE MACHADO 01/14/2023 15:58:08 Final Observation Date Value Abnormality Reference (Units) Status Bacteria identified in Specimen by Culture 01/14/2023 15:58:08 No significant growth Final Test: Culture, Urine, Quanti tative
Specimen Source: Urine, Clean Catch
Specimen Type: Urine
Specimen Date: 01/14/2023 3:58 PM
Result Date: 01/15/2023 4:12 PM
Result Status: Final result
Resulting Lab: LABORATORY [facility]
[address]
[place] [id number]

CULTURE

No significant growth

null Performing Location LABORATORY [facility] [place] - [address] [place] [id number]
[2023-06-18 08:57] LABS: Hematocrit (blood only) 34.8 % (37.0-47.0); Mean Corpuscular Hemoglobin 27.6 pg (25.0-34.0); Mean Corpuscular Hgb Conc 31.6 g/dL (32.0-36.0); Mean Corpuscular Volume 87.4 fL (80.0-100.0); Mean Platelet Volume 11.1 fL (9.4-12.4); Platelet Count 234 K/uL (130-400); RDW Coefficient of Variation 23.1 % (11.5-14.5); RDW Standard Deviation 70.6 fL (36.4-46.3); Red Blood Count 3.98 M/uL (4.20-5.40); White Blood Count 7.84 K/ul (4.8-10.8)
[2023-06-18] MEDS: DINOPROSTONE 10 MG INSERT PV ONE (09:06)
[2023-06-18] MEDS: LACTATED RINGER'S 1,000 ML IV PRN (09:08)
--- NOTE | 2023-06-18 09:18 | History & Physical Report ---
Date of Service June 18, 2023 Assessment & Plan (1) Post-term , 40-42 weeks of gestation: Plan: 23-year-old G1, P0 at 40 weeks and 3 days of gestation, scheduled induction of labor for postdates, Vital signs stable afebrile, heart rate reassuring, GBS negative, Cervix favorable, Plan to admit, monitor, oxytocin per protocol, epidural when patient requests and AROM Discussed what to expect and all questions were answered. Admission and Anticipated Discharge Date Admission Date: June 18, 2023 History of Present Illness Primary Care Provider: Jossie Guzman Patient is a 23-year-old G1, P0 at 40 weeks and 3 days of gestation, scheduled for induction of labor for postdates, She has no complaints, denies contractions, leakage of fluid, vaginal bleeding. She reports good movements. Her has been uncomplicated, GBS is negative. She denies any medical problems, surgeries. Allergies Allergy/AdvReac Type Severity Reaction Status Date / Time No Known Allergies Allergy Unverified 06/18/23 08:15 Home Medications Medication Instructions Recorded Confirmed Type ferrous sulfate 325 mg (65 mg 325 mg PO DAILY 06/18/23 06/18/23 History iron) tablet (iron) vits no.124-ferrous fum 1 tab PO DAILY 06/18/23 06/18/23 History 27 mg iron-folic acid 800 mcg tablet ( Vitamin) Patient History Surgical History S/P eye surgery Hx of tonsillectomy Social History Smoking Status: Never smoker Hx Alcohol Use: No Hx Substance Use: No Preferred Language: Uzbek Communication Ability: Effective Isotope Hydrologist Required: No Beliefs That Will Affect Care: None marital status: Single Current Living Situation: Significant Other Other Information That Helps Us Care for You: No Feels Safe at Home: Yes Safety Concerns: Feels Safe At This Time Assistive Devices: None 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 No history of STDs, no history of chlamydia, gonorrhea, herpes Physical Exam Constitutional: WD/WN, vitals as above well developed, + thin and comfortable Gastrointestinal (Abdomen): normal bowel sounds, soft, nontender, no hepatosplenomegaly (Gravid, [place] 7 pounds) Genitourinary: normal external appearance OB Exam Abdomen: + vertex Manual OB Exam: + cervical dilation 3 cm, + cervical effacement 50% and + station -1 OB Exam Monitor Tracing: + external uterine monitor used and + category I Results & Data Vital Signs (Past 12 Hours) Vital Signs Temp Pulse Resp BP 06/18/23 07:46 36.8 C 20 06/18/23 07:45 102 H 121/77 Diagnostic Findings Lab Results 06/18/23 Range/Units 08:26 WBC 7.84 (4.8-10.8) K/ul RBC 3.98 L (4.20-5.40) M/uL Hgb 11.0 L (12.0-16.0) g/dl Hct 34.8 L (37.0-47.0) % MCV 87.4 (80.0-100.0) fL MCH 27.6 (25.0-34.0) pg MCHC 31.6 L (32.0-36.0) g/dL RDW Std Deviation 70.6 H (36.4-46.3) fL RDW Coeff of Luis 23.1 H (11.5-14.5) % Plt Count 234 (130-400) K/uL MPV 11.1 (9.4-12.4) fL
[2023-06-18] MEDS: OXYTOCIN 30 UNITS/NSS 30 UNITS/500 ML BAG IV PRN ×2 (09:43→18:15)
--- NOTE | 2023-06-18 13:24 | Obstetrical Progress Note ---
Date of Service June 18, 2023 Assessment & Plan Admission and Anticipated Discharge Date Admission Date: June 18, 2023 Subjective Patient is reevaluated. She feels contractions but they are okay for now VSS Afebrile FHR categ I [place] ctxs q 2-4 min VE; 3-4 / 60%/ -1, AROM, small clear fluid Continue to monitor closely epidural for pain when she desires Results & Data Vital Signs (Past 12 Hours) Vital Signs Temp Pulse Resp BP 06/18/23 12:35 65 18 117/62 06/18/23 11:33 36.8 C 83 105/52 L 06/18/23 10:26 18 06/18/23 10:26 18 06/18/23 10:25 79 118/75 06/18/23 07:46 36.8 C 20 06/18/23 07:45 102 H 121/77
[2023-06-18] MEDS ORDERED: NALBUPHINE HCL 5 MG in SYRINGE 0 ML IV PRN (14:00)
[2023-06-18] MEDS ORDERED: SODIUM CHLORIDE 0.9% PF INJ 10 ML VIAL EPI PRN (14:00)
[2023-06-18] MEDS ORDERED: ONDANSETRON INJ 2 MG/ML 2 ML VIAL IV PRN (14:00)
[2023-06-18] MEDS ORDERED: NALOXONE HCL 0.4 MG/1 ML VIAL/CARP IV PRN (14:00)
[2023-06-18] MEDS ORDERED: BUPIVACAINE 0.25% PF 30 ML VIAL EPI PRN (14:00)
[2023-06-18] MEDS ORDERED: LIDOCAINE 2% MPF LOCAL 5 ML VIAL EPI PRN (14:00)
[2023-06-18] MEDS ORDERED: fentaNYL citrate PF 100 MCG/2 ML VIAL EPI PRN (14:00)
[2023-06-18] MEDS ORDERED: diphenhydrAMINE 50 MG/ML VIAL IV PRN (14:00)
[2023-06-18] MEDS ORDERED: fentANYL 2 MCG/ML BUPIVacaine 0.125%-NSS 100ML BAG EPI PRN (14:00)
[2023-06-18] MEDS ORDERED: ePHEDrine sulfate 50 MG/ML AMP IV PRN (14:00)
[2023-06-18] MEDS ORDERED: NALOXONE HCL 1 MG in SODIUM CHLORIDE 0.9% 1,000 ML IV PRN (14:00)
[2023-06-18] MEDS ORDERED: ROPIVACAINE 0.5% PF 5 MG/ML 20 ML VIAL EPI PRN (14:00)
--- NOTE | 2023-06-18 14:01 | Anesthesiology Consultation ---
Date of Service June 18, 2023 Assessment & Plan Chart Review Chart Review: Patient NOT seen in Pre Admission Testing and Acceptable Risk for Labor Epidural Consults Requested none ASA ASA2 Proposed Anesthesia Anesthesia Type: Labor Epidural Risk / Benefits Reviewed With: PT / POA / Parent / Guardian, Accepts Plan and Informed Consent Obtained History Height/Weight Height: 5 ft 5 in Weight: 63.049 kg Allergies Allergy/AdvReac Type Severity Reaction Status Date / Time No Known Allergies Allergy Unverified 06/18/23 08:15 Medications Home Medications Medication Instructions Recorded Confirmed Last Taken ferrous sulfate 325 mg (65 mg 325 mg PO DAILY 06/18/23 06/18/23 Unknown iron) tablet (iron) vits no.124-ferrous fum 1 tab PO DAILY 06/18/23 06/18/23 Unknown 27 mg iron-folic acid 800 mcg tablet ( Vitamin) Active Medications Generic Name Dose Route Start Last Admin Trade Name Freq PRN Reason Stop Dose Admin Lactated Ringer's 1,000 mls @ 150 mls/hr 06/18/23 08:14 06/18/23 13:57 Lr IV 06/20/23 08:13 125 mls/hr .[id number] PRN Administration L&D Protocol Protocol Oxytocin 30 units in 500 mls @ 10 mls/hr 06/18/23 09:07 06/18/23 12:30 Pitocin 30 Units/Nss IV 06/20/23 09:06 0.6 units/hr .Q24H PRN 10 mls/hr Labor Induction/Augmentation Titration Protocol 0.6 UNITS/HR Exercise / Class Metabolic Activity II 4-5 Yardwork/Stairs/Walk up hill Past Surgical History Surgical History S/P eye surgery Hx of tonsillectomy Past Anesthesia History No Hx of Anesthesia Complications and No Family Hx of Anesthesia Complications History of PONV No Hx of PONV and No Hx of Motion Sickness Social History Smoking Status: Never smoker Hx Alcohol Use: No Hx Substance Use: No substance use type: does not use Physical Exam Vital Signs Last Vital Signs Temp 36.8 C 06/18/23 11:33 Pulse 65 06/18/23 12:35 Resp 18 06/18/23 12:35 BP 117/62 06/18/23 12:35 ENMT Mouth: no dentition abnormality Thyromental Distance: > or= 3.5 Finger Breadths Mallampati Class: II Neck normal visual inspection Respiratory normal respiratory effort Auscultation: lungs clear to auscultation bilaterally Cardiovascular Rate/Rhythm: regular rate and regular rhythm Psychiatric Orientation: alert Testing Laboratory Results 06/18/23 08:26
[2023-06-18] MEDS: fentANYL 2 MCG/ML BUPIVacaine 0.125%-NSS 100ML BAG ONE (14:17)
[2023-06-18] MEDS: SODIUM CHLORIDE 0.9% PF INJ 10 ML VIAL ONE (14:24)
[2023-06-18] MEDS: BUPIVACAINE 0.25% PF 30 ML VIAL ONE (14:24)
[2023-06-18] MEDS: fentaNYL citrate PF 100 MCG/2 ML VIAL ONE (14:24)
[2023-06-18] MEDS: LIDOCAINE 2%/EPINEPHRINE 1:200,000 20 ML PF ONE (14:25)
--- NOTE | 2023-06-18 16:18 | Obstetrical Progress Note ---
Date of Service June 18, 2023 Assessment & Plan Admission and Anticipated Discharge Date Admission Date: June 18, 2023 Subjective Patient is comfortable with epidural VSS Afebrile FHR categ I VE; 9/ 90%/ +1 Oxytocin is at 12 miu/min Continue to monitor closely Results & Data Vital Signs (Past 12 Hours) Vital Signs Temp Pulse Resp BP Pulse Ox O2 Del Method 06/18/23 16:13 107 H 98 06/18/23 16:08 85 97 06/18/23 16:06 65 100/59 L 06/18/23 16:03 78 97 06/18/23 15:58 74 97 06/18/23 15:53 59 L 97 06/18/23 15:50 59 L 97/52 L 06/18/23 15:48 55 L 97 06/18/23 15:43 56 L 97 06/18/23 15:38 63 97 06/18/23 15:35 65 104/57 L 06/18/23 15:33 64 97 06/18/23 15:28 64 97 06/18/23 15:23 62 97 06/18/23 15:22 65 102/55 L 06/18/23 15:18 85 97 06/18/23 15:13 65 98 06/18/23 15:08 64 97 06/18/23 15:06 61 108/58 L 06/18/23 15:03 91 H 98 06/18/23 14:59 36.8 C 18 06/18/23 14:59 Room Air 06/18/23 14:58 68 98 06/18/23 14:53 65 98 06/18/23 14:50 65 107/58 L 06/18/23 14:48 73 97 06/18/23 14:46 69 104/55 L 06/18/23 14:43 68 98 06/18/23 14:41 68 102/57 L 06/18/23 14:38 69 98 06/18/23 14:35 78 108/58 L 06/18/23 14:33 74 98 06/18/23 14:30 67 16 110/55 L 06/18/23 14:28 79 98 06/18/23 14:24 64 107/58 L 06/18/23 14:23 73 98 06/18/23 14:22 73 110/57 L 06/18/23 14:20 92 H 110/59 L 06/18/23 14:18 89 97 06/18/23 14:14 80 98 06/18/23 14:09 99 H 100 06/18/23 14:04 77 99 06/18/23 12:35 65 18 117/62 06/18/23 11:33 36.8 C 83 105/52 L 06/18/23 10:26 18 06/18/23 10:26 18 06/18/23 10:25 79 118/75 06/18/23 07:46 36.8 C 20 06/18/23 07:45 102 H 121/77
[2023-06-18] MEDS ORDERED: OXYTOCIN 30 UNITS/NSS 30 UNITS/500 ML BAG IV PRN (17:48)
[2023-06-18] MEDS ORDERED: oxyCODONE/ACETAMINOPHEN 5mg/325mg TAB PO PRN (17:48)
[2023-06-18] MEDS ORDERED: bisacodyL 10 MG SUPP PR PRN (17:48)
[2023-06-18] MEDS ORDERED: HYDROCORTISONE ACETATE 25 MG SUPP PR PRN (17:48)
--- NOTE | 2023-06-18 17:51 | Delivery Summary ---
Vaginal Delivery Summary Date of Service June 18, 2023 Vaginal Delivery Summary Patient was found to be fully dilated and desired to push. She pushed for about 30 min and delivered the head and then shoulders with minimal traction. The baby was handed off to the mother. The cord was clampedx2 and cut at 1 minute. The vagina and perineum were checked and found to have 1st degree hymenal laceration with minimal extension to perineum. The vaginal mucosa was repaired with 2/0 vicryl and skin on subcuticular fashion. The placenta was delivered spontaneously as intact and complete. The uterus was explored and found to be empty. EBL was 200 ml. The fundus was firm The baby was a viable male , Apgars 8/9, the weight is pending The mother and the baby tolerated the procedure well. No complications happened and I was present during whole procedure.
[2023-06-18] MEDS: METHYLERGONOVINE MALEATE 0.2 MG/ML AMP ONE (18:00)
--- NOTE | 2023-06-18 19:00 | Anesthesia Procedure Note ---
Date of Service June 18, 2023 Anesthesia Post Epidural Note Vital Signs Vital Signs: Temp Pulse Resp BP Pulse Ox O2 Del Method 37.1 C 78 16 122/74 100 Room Air 06/18/23 18:50 06/18/23 18:50 06/18/23 18:50 06/18/23 18:50 06/18/23 18:18 06/18/23 14:59 Pain Intensity Lower Abdomen: Pain Intensity: 0 Notes Mental Status: alert / awake / arousable Nausea / Vomiting: adequately controlled Pain: adequately controlled Airway Patency, RR, SpO2: stable & adequate BP & HR: stable & adequate Hydration State: stable & adequate Neuraxial Anesthesia: was administered and sensory block is resolving Anesthetic Complications: no major complications apparent and Pt Satisfied with anesthetic care Epidural: Removed without complications and With tip intact
[2023-06-18] MEDS: BENZOCAINE 20% SPRY 85 APPLN/85 GM CAN EXT PRN (19:53)
[2023-06-18] MEDS: DOCUSATE SODIUM 100 MG CAP PO SCH (21:42)
[2023-06-18] MEDS: IBUPROFEN 600 MG TAB PO PRN (21:42)
[2023-06-18] MEDS: METHYLERGONOVINE MALEATE 0.2 MG TAB PO SCH (21:42)
[2023-06-18] MEDS: ACETAMINOPHEN 325 MG TAB PO PRN (21:43)
[2023-06-19 06:45] LABS: Hematocrit (blood only) 32.5 % (37.0-47.0); Hemoglobin 10.5 g/dl (12.0-16.0); Mean Corpuscular Hemoglobin 28.2 pg (25.0-34.0); Mean Corpuscular Hgb Conc 32.3 g/dL (32.0-36.0); Mean Corpuscular Volume 87.4 fL (80.0-100.0); Mean Platelet Volume 11.1 fL (9.4-12.4); Platelet Count 184 K/uL (130-400); RDW Coefficient of Variation 22.7 % (11.5-14.5); RDW Standard Deviation 70.4 fL (36.4-46.3); Red Blood Count 3.72 M/uL (4.20-5.40); White Blood Count 10.35 K/ul (4.8-10.8)
[2023-06-19] MEDS: FERROUS SULFATE 325 MG TAB PO SCH (08:35)
[2023-06-19] MEDS: PRENATAL VITAMIN 1 TAB PO SCH (08:35)
--- NOTE | 2023-06-19 08:56 | Obstetrical Progress Note ---
Date of Service June 19, 2023 Assessment & Plan (1) Normal course: Continue routine care, anticipate discharge home tomorrow if doing well Subjective Ambulation: ambulating normally Voiding: no voiding problems Passing Gas:: Yes Diet Tolerance:: regular diet Lochia:: Moderate Feeding Type:: breast feeding Patient doing well, standing at bedside attending to . No concerns today Physical Exam Constitutional WD/WN, vitals as above Respiratory normal respiratory effort, lungs clear to auscultation Cardiovascular RRR, no murmur, no edema Gastrointestinal (Abdomen) normal bowel sounds, soft, nontender, no hepatosplenomegaly Fundus below U Results & Data Vital Signs (Past 12 Hours) Vital Signs Temp Pulse Resp BP Pulse Ox O2 Del Method 06/19/23 03:38 36.4 C L 75 16 102/66 97 Room Air 06/18/23 22:55 36.5 C 96 H 18 114/80 96 Room Air Laboratory Results Laboratory Results WBC 10.35 K/ul (4.8-10.8) 06/19/23 06:04 RBC 3.72 M/uL (4.20-5.40) L 06/19/23 06:04 Hgb 10.5 g/dl (12.0-16.0) L 06/19/23 06:04 Hct 32.5 % (37.0-47.0) L 06/19/23 06:04 MCV 87.4 fL (80.0-100.0) 06/19/23 06:04 MCH 28.2 pg (25.0-34.0) 06/19/23 06:04 MCHC 32.3 g/dL (32.0-36.0) 06/19/23 06:04 RDW Std Deviation 70.4 fL (36.4-46.3) H 06/19/23 06:04 RDW Coeff of Luis 22.7 % (11.5-14.5) H 06/19/23 06:04 Plt Count 184 K/uL (130-400) 06/19/23 06:04 MPV 11.1 fL (9.4-12.4) 06/19/23 06:04
[2023-06-19] MEDS: bisacodyL 5 MG TABEC PO SCH (21:12)
[2023-06-20] MEDS: ePHEDrine sulfate 50 MG/ML AMP ONE (04:09)
[2023-06-20] MEDS: MINERAL OIL 30 ML UDC ONE (04:09)
[2023-06-20] MEDS: SODIUM CHLORIDE 0.9% PF INJ 10 ML VIAL EPI STA (04:09)
[2023-06-20] MEDS: LIDOCAINE 2%/EPINEPHRINE 1:200,000 20 ML PF EPI STA (04:09)
[2023-06-20] MEDS: BUPIVACAINE 0.25% PF 30 ML VIAL EPI STA (04:09)
[2023-06-20] MEDS: fentaNYL citrate PF 100 MCG/2 ML VIAL EPI STA (04:09)
[2023-06-20] MEDS: METHYLERGONOVINE MALEATE 0.2 MG/ML AMP IM STA (04:10)
[2023-06-20] MEDS: DIPHTHER/TETAN/PERTUS Vaccine (Tdap, Adol/Adult) 0.5mL IM ONE (04:11)
[2023-06-20] MEDS: MEASLES, MUMPS & RUBELLA VIRUS VACCINE (MMR) VIAL SQ ONE (04:11)
[2023-06-20 06:41] LABS: Hematocrit (blood only) 36.8 % (37.0-47.0); Hemoglobin 11.4 g/dl (12.0-16.0)
--- NOTE | 2023-06-20 08:18 | Obstetrical Progress Note ---
Date of Service June 20, 2023 Assessment & Plan (1) Normal course: Continue routine care, d/c home today with instuctions Subjective Ambulation: ambulating normally Voiding: no voiding problems Passing Gas:: Yes Diet Tolerance:: regular diet Lochia:: Small Feeding Type:: breast feeding Current Pain Level(1-10): 0 Doing well today, no complaints. Would like to go home Physical Exam Constitutional WD/WN, vitals as above Respiratory normal respiratory effort, lungs clear to auscultation Cardiovascular RRR, no murmur, no edema Gastrointestinal (Abdomen) normal bowel sounds, soft, nontender, no hepatosplenomegaly Results & Data Vital Signs (Past 12 Hours) Vital Signs Temp Pulse Resp BP Pulse Ox O2 Del Method 06/19/23 22:52 36.8 C 66 18 132/82 98 Room Air Laboratory Results Laboratory Results WBC 10.35 K/ul (4.8-10.8) 06/19/23 06:04 RBC 3.72 M/uL (4.20-5.40) L 06/19/23 06:04 Hgb 11.4 g/dl (12.0-16.0) L 06/20/23 05:59 Hct 36.8 % (37.0-47.0) L 06/20/23 05:59 MCV 87.4 fL (80.0-100.0) 06/19/23 06:04 MCH 28.2 pg (25.0-34.0) 06/19/23 06:04 MCHC 32.3 g/dL (32.0-36.0) 06/19/23 06:04 RDW Std Deviation 70.4 fL (36.4-46.3) H 06/19/23 06:04 RDW Coeff of Luis 22.7 % (11.5-14.5) H 06/19/23 06:04 Plt Count 184 K/uL (130-400) 06/19/23 06:04 MPV 11.1 fL (9.4-12.4) 06/19/23 06:04
== END 2023-06-20 11:25 | disposition home or self-care (01) | DRG 807 ==
LOC: 4S1 07:40 → 4E2 20:23